=== PATIENT | male | born 1935 | race Caucasian/White ===

== ENCOUNTER 2016-12-15 08:40 | Outpatient (CLI) | payer MEDICARE, OTHER | END 2016-12-15 08:41 | disposition home or self-care (01) | DX: E11.51 Type 2 diabetes mellitus with diabetic peripheral angiopathy without gangrene (principal); I70.213 Atherosclerosis of native arteries of extremities with intermittent claudication, bilateral legs ==

== ENCOUNTER 2017-01-10 14:07 | Outpatient (CLI) | payer MEDICARE, OTHER | END 2017-01-10 14:08 | disposition home or self-care (01) | DX: I48.91 Unspecified atrial fibrillation (principal); I51.7 Cardiomegaly; I77.89 Other specified disorders of arteries and arterioles ==

== ENCOUNTER 2017-01-25 11:03 | Outpatient (CLI) | payer MEDICARE, OTHER | END 2017-01-25 11:04 | disposition home or self-care (01) | DX: G47.33 Obstructive sleep apnea (adult) (pediatric) (principal) | CPT/HCPCS: 99215; G0463 ==

== ENCOUNTER 2017-02-07 13:14 | Outpatient (CLI) | payer MEDICARE, OTHER | END 2017-02-07 13:15 | disposition home or self-care (01) | DX: I48.2 Chronic atrial fibrillation (principal); G47.33 Obstructive sleep apnea (adult) (pediatric); I10 Essential (primary) hypertension ==

== ENCOUNTER 2017-02-13 11:18 | Emergency (ER) | payer MEDICARE, OTHER ==
--- NOTE | 2017-02-13 11:45 | ED Physician Documentation ---
PD HPI DYSPNEA - Stated complaint Stated Complaint: SOA - Chief complaint Chief Complaint: Resp - History obtained from History obtained from: Patient - History of Present Illness Timing - onset: How many days ago (several) Timing - onset during: Light activity Timing - details: Gradual onset, Waxing and waning (he has noted feeling of dyspnea and some fatigue the past few days. Had been seen 4 days ago for cardioversion from atrial fib. Seemed okay for 2 days then started with some fatigue and dyspnea, similar to prior to cardioversion. Does not feel palpitations per se.) Inciting event(s): No: URI Worsened by: Exertion. No: Laying flat, Coughing Associated symptoms: Bilateral edema (chronic). No: Fever, Cough, Wheezing Similar symptoms before: Has not had sx before Recently seen: Clinic (cardioversion from atril fib 4 days ago) Review of Systems Constitutional: denies: Fever, Chills Nose: denies: Rhinorrhea / runny nose, Congestion Throat: denies: Sore throat Cardiac: reports: Pedal edema. denies: Chest pain / pressure, Palpitations, Calf pain Respiratory: reports: Dyspnea. denies: Cough, Wheezing GI: denies: Nausea, Vomiting, Diarrhea, Bloody / black stool : denies: Dysuria, Frequency Skin: denies: Rash, Lesions Neurologic: reports: Generalized weakness. denies: Focal weakness, Numbness, Near syncope PD PAST MEDICAL HISTORY - Past Medical History Cardiovascular: Hypertension Respiratory: Asthma Neuro: TIA Endocrine/Autoimmune: Type 2 diabetes GI: Ulcers : Benign prostate hypertrophy, Incontinence HEENT: None Psych: Depression, Anxiety Musculoskeletal: Osteoarthritis Derm: None - Past Surgical History Past Surgical History: Yes General: Appendectomy, Hiatal hernia repair Ortho: Hip replacement - Present Medications Home Medications: Ambulatory Orders Medication Instructions Recorded Confirmed Albuterol Sulfate [Proair Hfa] 1 puffs PRN 05/02/14 05/10/14 Aspirin/Calcium Carbonate/Mag 325 mg DAILY 05/02/14 05/10/14 [Aspirin Buffered 325 mg Tab] Azelastine HCl 137 mcg NS BID 05/02/14 05/10/14 Fexofenadine [Georgette] 60 mg QPM 05/02/14 05/10/14 Fluticasone [Flonase] 2 sprays BID 05/02/14 05/10/14 Glimepiride 2 mg PO BID 05/02/14 05/10/14 Insulin Lispro [Humalog] 0 PRN 05/02/14 05/10/14 Mirtazapine 30 mg PO QPM 05/02/14 05/10/14 Montelukast Sodium [Singulair] 10 mg PO QPM 05/02/14 05/10/14 Pantoprazole Sodium [Protonix] 40 mg DAILY 05/02/14 05/10/14 Valsartan/Hydrochlorothiazide 1 cap DAILY 05/02/14 05/10/14 [Valsartan-Hctz 320-25 mg Tab] clonazePAM [KlonoPIN] 0.5 mg QPM 05/02/14 05/10/14 metFORMIN [Glucophage] 1,000 mg PO BIDWM 05/02/14 05/10/14 Baclofen 10 mg PO TID 05/10/14 05/10/14 Hydrocodone/Acetaminophen 1 tab PO PRN 05/10/14 05/10/14 [Hydrocodone-APAP 5-325] Magnesium Oxide [Mag Ox] 400 mg PO DAILY #15 tablet 02/13/17 - Allergies Allergies/Adverse Reactions: Allergies Allergy/AdvReac Type Severity Reaction Status Date / Time No Known Drug Allergies Allergy Verified 05/02/14 08:48 - Social History Does the pt smoke?: No Smoking Status: Never smoker Does the pt drink ETOH?: Yes Does the pt have substance abuse?: No - Family History Family history: reports: Non contributory - Immunizations Immunizations are current?: Yes - POLST Patient has POLST: Yes PD ED PE NORMAL - Vitals Vital signs reviewed: Yes - General General: Alert and oriented X 3, No acute distress, Well developed/nourished - HEENT HEENT: Ears normal, Moist mucous membranes, Pharynx benign - Neck Neck: Supple, no meningeal sign, No adenopathy - Cardiac Cardiac: No murmur. No: RRR (irregular but controlled rate) - Respiratory Respiratory: Clear bilaterally - Abdomen Abdomen: Soft, Non tender - Back Back: No CVA TTP, No spinal TTP - Derm Derm: Normal color, Warm and dry - Extremities Extremities: No tenderness to palpate, Normal ROM s pain, No calf tenderness / cord, Other (1+ bilateral edema) - Neuro Neuro: Alert and oriented X 3, No motor deficit, No sensory deficit, Normal speech - Psych Psych: Normal mood, Normal affect Results - Vitals Vitals: Vital Signs - 24 hr 02/13/17 02/13/17 02/13/17 11:21 12:31 13:45 Temperature 36.3 C L 36.6 C Heart Rate 108 H 92 88 Respiratory 20 18 16 Rate Blood Pressure 127/82 H 114/69 110/70 O2 Saturation 97 94 93 02/13/17 14:04 Temperature Heart Rate 89 Respiratory 20 Rate Blood Pressure 110/70 O2 Saturation 93 Oxygen O2 Source Room air - EKG (time done) 11:33 Rate: Rate (enter#) (86) Rhythm: Atrial fibrillation Intervals: RBBB QRS: Normal Ischemia: Normal ST segments, Non specific changes. No: ST elevation c/w ischemia, ST depression - Labs Labs: Laboratory Tests 02/13/17 02/13/17 02/13/17 11:45 11:45 11:45 WBC 6.3 RBC 3.70 L Hgb 12.7 L Hct 36.7 L MCV 99.1 H MCH 34.4 H MCHC 34.7 RDW 14.2 Plt Count 117 L MPV 10.0 Neut # 3.6 Lymph # 1.8 [place] # 0.5 Eos # 0.4 Baso # 0.0 Absolute Nucleated RBC 0.01 Nucleated RBCs 0.1 Sodium 137 Potassium 3.9 Chloride 101 Carbon Dioxide 28 Anion Gap 8.0 BUN 16 Creatinine 0.8 Estimated GFR (MDRD) 93 Glucose 226 H Calcium 10.1 Magnesium 1.5 L Total Bilirubin 0.9 AST 52 H ALT 44 Alkaline Phosphatase 102 B-Natriuretic Peptide 375 H Total Protein 6.6 L Albumin 3.7 Globulin 2.9 Albumin/Globulin Ratio 1.3 Lipase 28 - Rads (name of study) chest Radiology: Prelim report reviewed, EMP read contemporaneously (no signs of CHF nor infiltrates) PD MEDICAL DECISION MAKING - ED course Complexity details: considered differential (has dyspnea but does not appear to be in failure and no infiltrates on CXR. talked with Dr. Edouard and she will do stress testing. He does have relatively low BP for age/etc. and consdier some dyspnea from low pressure. However Dr. Edouard wanted to see how it does rather than decrease BP meds. ), d/w patient, d/w continuous improvement consultant (Dr. Edouard, who said not to try cardioversion as unlikely to sustain, since reverted in 2-3 days to atrial fib again. ) Departure - Departure Disposition: 01 Home, Self Care Clinical Impression: Dyspnea, Atrial fibrillation Condition: Stable Record reviewed to determine appropriate education?: Yes Instructions: ED Dyspnea Shortness of Breath, ED Afib Follow-Up: Sachi Winchester MD [Primary Care Provider] - Olga Edouard MD [Provider Admit Priv/Credential] - Prescriptions: Magnesium Oxide [Mag Ox] 400 mg PO DAILY #15 tablet Comments: Continue current medications, with taking whole tablet of the Furosemide diuretic. Add Magnesium supplement daily for 1-2 weeks. Check your BP once or twice daily; if it is running too low (under 115-120) then contact Dr. Edouard's office or PMD to talk about lowering your BP med ( Valsartan). Dr. Edouard's office will contact you in the next day or so to set up follow up appt to perhaps have stress testing done and to recheck how you are doing. She said there was not a value in re-doing the cardioversion if the Atrial Fib returned so soon. Discharge Date/Time: 02/13/17 14:04
[2017-02-13 12:22] LABS: BASOPHILS % (AUTO) 0.5 %; EOSINOPHILS # (AUTO) 0.4 10^3/uL (0.0-0.7); EOSINOPHILS % (AUTO) 6.1 %; HCT - HEMATOCRIT 36.7 % (42.0-52.0); HGB - HEMOGLOBIN 12.7 g/dL (14.0-18.0); LYMPHOCYTES # (AUTO) 1.8 10^3/uL (1.5-3.5); LYMPHOCYTES % (AUTO) 28.8 %; MEAN CORPUSCULAR HEMOGLOBIN 34.4 pg (27.0-31.0); MEAN CORPUSCULAR HGB CONC 34.7 g/dL (32.0-36.0); MEAN CORPUSCULAR VOLUME 99.1 fL (80.0-94.0); MONOCYTES # (AUTO) 0.5 10^3/uL (0.0-1.0); MONOCYTES % (AUTO) 7.7 %; NEUTROPHILS # (AUTO) 3.6 10^3/uL (1.5-6.6); NEUTROPHILS % (AUTO) 56.9 %; NUCLEATED RED BLOOD CELLS AUTO 0.1 /100WBC; RED CELL DISTRIBUTION WIDTH 14.2 % (12.0-15.0); UNCORRECTED WHITE BLOOD COUNT 6.3 x10^3/uL; WHITE BLOOD COUNT 6.3 x10^3/uL (4.8-10.8)
[2017-02-13 12:32] LABS: ALBUMIN/GLOBULIN RATIO 1.3 (1.0-2.2); BILIRUBIN,TOTAL 0.9 mg/dL (0.2-1.0); CALCIUM 10.1 mg/dL (8.5-10.3); CREATININE 0.8 mg/dL (0.6-1.2); MAGNESIUM 1.5 mg/dL (1.7-2.8); POTASSIUM 3.9 mmol/L (3.5-5.0); TOTAL PROTEIN 6.6 g/dL (6.7-8.2)
--- NOTE | 2017-02-13 12:37 | XRAY Preliminary Report ---
Exam: XR Chest 1 View IMPRESSION: No focal consolidation. [facility] SITE ID: [id number]
--- NOTE | 2017-02-13 12:40 | XRAY Report ---
EXAM: CHEST RADIOGRAPHY EXAM DATE: 02/13/2017 12:27 PM. CLINICAL HISTORY: Dyspnea. COMPARISON: Chest radiograph dated 02/13/2017 at 12:31 PM. TECHNIQUE: 1 view. FINDINGS: Lungs/Pleura: No focal opacities evident. No pleural effusion. No pneumothorax. Mediastinum: Within exam limitations, cardiomediastinal contour is normal. Other: None. IMPRESSION: No focal consolidation. [facility] Referring Provider Line: [phone] SITE ID: [id number]
[2017-02-13] MEDS ORDERED: MAGNESIUM SULFATE 2 GRAM 50 ML IV ONE ×2 (12:54→12:57)
[2017-02-13 14:03] VITALS: BP 110/70
== END 2017-02-13 14:04 | disposition home or self-care (01) ==
LOC: ED 11:18
DX: I48.91 Unspecified atrial fibrillation (principal); I45.10 Unspecified right bundle-branch block; R94.31 Abnormal electrocardiogram [ECG] [EKG]; R06.02 Shortness of breath; I10 Essential (primary) hypertension; J45.909 Unspecified asthma, uncomplicated; E11.9 Type 2 diabetes mellitus without complications; Z79.4 Long term (current) use of insulin; Z79.84 Long term (current) use of oral hypoglycemic drugs; N40.0 Benign prostatic hyperplasia without lower urinary tract symptoms; Z86.73 Personal history of transient ischemic attack (TIA), and cerebral infarction without residual deficits; Z87.11 Personal history of peptic ulcer disease; M19.90 Unspecified osteoarthritis, unspecified site; Z79.82 Long term (current) use of aspirin
CPT/HCPCS: 36415; 71010; 80053; 83690; 83735; 83880; 85025; 93005; 93010; 96374; 99283; 99284

== ENCOUNTER 2017-02-27 11:02 | Outpatient (CLI) | payer MEDICARE, OTHER | END 2017-02-27 11:03 | disposition home or self-care (01) | LOC: SC 11:02 | PROVIDERS: ATTEND Nurse Practitioner Family | DX: G47.33 Obstructive sleep apnea (adult) (pediatric) (principal) | CPT/HCPCS: 99214; G0463; 99212 ==

== ENCOUNTER 2017-03-13 15:54 | Outpatient (CLI) | payer MEDICARE, OTHER | END 2017-03-13 15:55 | disposition home or self-care (01) | LOC: RT 15:54 | PROVIDERS: ATTEND Internal Medicine Cardiovascular Disease | DX: I48.91 Unspecified atrial fibrillation (principal) | CPT/HCPCS: 93005 ==

== ENCOUNTER 2017-03-30 16:08 | Outpatient (CLI) | payer MEDICARE, OTHER | END 2017-03-30 16:09 | disposition home or self-care (01) | LOC: RT 16:08 | PROVIDERS: ATTEND Internal Medicine Cardiovascular Disease | DX: I48.2 Chronic atrial fibrillation (principal) | CPT/HCPCS: 93005 ==

== ENCOUNTER 2017-04-05 13:46 | Outpatient (CLI) | payer MEDICARE, OTHER | END 2017-04-05 13:47 | disposition home or self-care (01) | LOC: SC 13:46 | PROVIDERS: ATTEND Nurse Practitioner Family | DX: G47.33 Obstructive sleep apnea (adult) (pediatric) (principal) | CPT/HCPCS: 99214; G0463; 99212 ==

== ENCOUNTER 2017-05-09 15:52 | Outpatient (CLI) | payer MEDICARE, OTHER | END 2017-05-09 15:53 | disposition home or self-care (01) | LOC: RT 15:52 | PROVIDERS: ATTEND Internal Medicine Cardiovascular Disease | DX: I48.91 Unspecified atrial fibrillation (principal) | CPT/HCPCS: 93005 ==

== ENCOUNTER 2017-05-29 16:11 | Outpatient (CLI) | payer MEDICARE, OTHER | END 2017-05-29 16:12 | disposition home or self-care (01) | LOC: SC 16:11 | PROVIDERS: ATTEND Nurse Practitioner Family | DX: G47.33 Obstructive sleep apnea (adult) (pediatric) (principal); R09.02 Hypoxemia | CPT/HCPCS: 99215; G0463; 99212 ==

== ENCOUNTER 2017-09-18 09:16 | Outpatient (CLI) | payer MEDICARE, OTHER ==
[2017-09-18 10:09] LABS: BASOPHILS % (AUTO) 0.9 %; EOSINOPHILS # (AUTO) 0.3 10^3/uL (0.0-0.7); EOSINOPHILS % (AUTO) 6.4 %; HCT - HEMATOCRIT 34.3 % (42.0-52.0); HGB - HEMOGLOBIN 11.8 g/dL (14.0-18.0); LYMPHOCYTES # (AUTO) 1.6 10^3/uL (1.5-3.5); LYMPHOCYTES % (AUTO) 29.9 %; MEAN CORPUSCULAR HGB CONC 34.5 g/dL (32.0-36.0); MEAN CORPUSCULAR VOLUME 95.8 fL (80.0-94.0); MEAN PLATELET VOLUME 9.7 fL (7.4-11.4); MONOCYTES # (AUTO) 0.4 10^3/uL (0.0-1.0); MONOCYTES % (AUTO) 7.6 %; NEUTROPHILS % (AUTO) 55.2 %; NUCLEATED RED BLOOD CELLS AUTO 0.1 /100WBC; RED BLOOD COUNT 3.58 10^6/uL (4.70-6.10); RED CELL DISTRIBUTION WIDTH 14.2 % (12.0-15.0); UNCORRECTED WHITE BLOOD COUNT 5.4 x10^3/uL; WHITE BLOOD COUNT 5.4 x10^3/uL (4.8-10.8)
[2017-09-18 10:11] LABS: BILIRUBIN,URINE NEGATIVE (NEGATIVE); PH,URINE 6.5 PH (5.0-7.5); UA CHARGE (STRIP ONLY) YES; UR CULTURE IF IND NOT INDICATED
[2017-09-18 10:25] LABS: HEMOGLOBIN A1C 0.54 g/dL
[2017-09-18 10:28] LABS: ALBUMIN/GLOBULIN RATIO 1.2 (1.0-2.2); BILIRUBIN,TOTAL 1.1 mg/dL (0.2-1.0); BUN - BLOOD UREA NITROGEN 33 mg/dL (6-20); CALCIUM 9.7 mg/dL (8.5-10.3); CARBON DIOXIDE - CO2 29 mmol/L (21-32); CHLORIDE 98 mmol/L (101-111); CHOL/HDL RATIO 3.9 (<5.0); CHOLESTEROL 166 mg/dL; CREATININE 1.2 mg/dL (0.6-1.2); GFR - MDRD 58 (>89); GLUCOSE 149 mg/dL (70-100); HDL CHOLESTEROL 43 mg/dL; POTASSIUM 3.7 mmol/L (3.5-5.0); SODIUM 139 mmol/L (135-145); TOTAL PROTEIN 6.5 g/dL (6.7-8.2); TRIGLYCERIDES 192 mg/dL; VLDL CHOLESTEROL 38 mg/dL
[2017-09-18 11:05] LABS: THYROID STIMULATING HORMONE 1.99 uIU/mL (0.34-5.60)
== END 2017-09-18 09:17 | disposition home or self-care (01) ==
LOC: LAB 09:16
PROVIDERS: ATTEND Internal Medicine
DX: I10 Essential (primary) hypertension (principal); Z79.899 Other long term (current) drug therapy; I50.9 Heart failure, unspecified; C61 Malignant neoplasm of prostate; R40.0 Somnolence; G47.33 Obstructive sleep apnea (adult) (pediatric); I48.92 Unspecified atrial flutter; Z86.010 Personal history of colon polyps; R80.9 Proteinuria, unspecified; G25.81 Restless legs syndrome; M19.90 Unspecified osteoarthritis, unspecified site; K74.60 Unspecified cirrhosis of liver; E11.9 Type 2 diabetes mellitus without complications; D64.9 Anemia, unspecified; R05 Cough; I50.32 Chronic diastolic (congestive) heart failure
CPT/HCPCS: 36415; 80053; 80061; 81001; 81003; 82043; 82570; 82607; 83036; 83880; 84153; 84443; 85025; 87086

== ENCOUNTER 2018-03-22 13:27 | Outpatient (CLI) | payer MEDICARE, OTHER | END 2018-03-22 23:59 | LOC: CAM 13:27 | PROVIDERS: ATTEND Internal Medicine | DX: M54.5 Low back pain (principal); G83.10 Monoplegia of lower limb affecting unspecified side; M62.838 Other muscle spasm | CPT/HCPCS: 97810; 97811 ==

== ENCOUNTER 2018-05-10 12:07 | Outpatient (CLI) | payer MEDICARE, OTHER ==
[2018-05-10 13:00] LABS: ALBUMIN 3.7 g/dL (3.2-5.5); ALBUMIN/GLOBULIN RATIO 1.2 (1.0-2.2); BILIRUBIN,TOTAL 1.1 mg/dL (0.2-1.0); CALCIUM 9.6 mg/dL (8.5-10.3); TOTAL PROTEIN 6.7 g/dL (6.7-8.2)
== END 2018-05-10 12:08 | disposition home or self-care (01) ==
LOC: LAB 12:07
PROVIDERS: ATTEND Internal Medicine Cardiovascular Disease
DX: I10 Essential (primary) hypertension (principal)
CPT/HCPCS: 36415; 80053; 83880

== ENCOUNTER 2018-05-17 07:10 | Day surgery (SDC) | payer MEDICARE, OTHER ==
[2018-05-17] MEDS ORDERED: LACTATED RINGERS 1,000 ML IV ONE (07:50)
[2018-05-17] MEDS ORDERED: PROPOFOL 200 MG/20 ML VIAL IVP ONE (10:35)
[2018-05-17] MEDS ORDERED: LIDOCAINE-MPF 2% 5 ML VIAL IM ONE (10:35)
[2018-05-17 11:52] VITALS: BP 112/66
== END 2018-05-17 07:11 | disposition home or self-care (01) ==
LOC: SDS 07:10
PROVIDERS: ATTEND Internal Medicine Gastroenterology
PROC: 0DBL8ZZ Excision of Transverse Colon, Via Natural or Artificial Opening Endoscopic (ICD-10-PCS; 2018-05-17)
PROC: 0DBM8ZZ Excision of Descending Colon, Via Natural or Artificial Opening Endoscopic (ICD-10-PCS; 2018-05-17)
PROC: 0DBH8ZZ Excision of Cecum, Via Natural or Artificial Opening Endoscopic (ICD-10-PCS; 2018-05-17)
PROC: 0DBK8ZZ Excision of Ascending Colon, Via Natural or Artificial Opening Endoscopic (ICD-10-PCS; 2018-05-17)
PROC: 0DBL8ZZ Excision of Transverse Colon, Via Natural or Artificial Opening Endoscopic (ICD-10-PCS; 2018-05-17)
PROC: 3E0H8GC Introduction of Other Therapeutic Substance into Lower GI, Via Natural or Artificial Opening Endoscopic (ICD-10-PCS; 2018-05-17)
PROC: 0DBK8ZZ Excision of Ascending Colon, Via Natural or Artificial Opening Endoscopic (ICD-10-PCS; principal; 2018-05-17 08:30)
DX: K62.5 Hemorrhage of anus and rectum (principal); D12.2 Benign neoplasm of ascending colon; D12.0 Benign neoplasm of cecum; D12.4 Benign neoplasm of descending colon; D12.3 Benign neoplasm of transverse colon; K57.30 Diverticulosis of large intestine without perforation or abscess without bleeding; K64.8 Other hemorrhoids; K64.4 Residual hemorrhoidal skin tags; G47.30 Sleep apnea, unspecified; E11.9 Type 2 diabetes mellitus without complications; C61 Malignant neoplasm of prostate; I50.9 Heart failure, unspecified; I11.0 Hypertensive heart disease with heart failure
CPT/HCPCS: 45380; 45381; 45385; J7120

== ENCOUNTER 2018-06-18 17:14 | Emergency (ER) | payer MEDICARE, OTHER ==
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
--- NOTE | 2018-06-18 19:02 | XRAY Report ---
Reason: fall, low back pain Procedure Date: 06/18/2018 Accession Number: [id number] / [id number] Procedure: XR - Lumbar Spine 2 View CPT Code: FULL RESULT: EXAM: LUMBOSACRAL SPINE RADIOGRAPHY EXAM DATE: 06/18/2018 06:14 PM. CLINICAL HISTORY: Pain after fall. COMPARISONS: 08/20/2016. TECHNIQUE: 3 views. FINDINGS: Alignment: Gentle convex to the left curvature of the mid lumbar spine. No spondylolisthesis. Bones: Five [id number] lumbar vertebral bodies are present. No fractures or bone lesion. Osteopenic patient. Disks: Diffuse degenerative disk disease most severely affecting L3-L4, L4-L5 and L5-S1. Lower thoracic spine DISH noted. Facets: Facet arthropathy most superior in the lower lumbar spine. Sacroiliac Joints: Unremarkable. Soft Tissues: Normal. The visualized bowel gas pattern is normal. Atheromatous calcified plaques in the abdominal aorta noted. IMPRESSION: 1. Osteopenic patient. No acute fracture. 2. Multilevel degenerative disk and facet arthropathy. 3. Lower thoracic spine DISH. [facility]
[2018-06-18 19:04] LABS: BASOPHILS # (AUTO) 0.1 10^3/uL (0.0-0.1); BASOPHILS % (AUTO) 1.2 %; EOSINOPHILS # (AUTO) 0.4 10^3/uL (0.0-0.7); HGB - HEMOGLOBIN 10.2 g/dL (14.0-18.0); LYMPHOCYTES # (AUTO) 1.3 10^3/uL (1.5-3.5); LYMPHOCYTES % (AUTO) 20.3 %; MEAN CORPUSCULAR HEMOGLOBIN 33.6 pg (27.0-31.0); MEAN CORPUSCULAR HGB CONC 34.2 g/dL (32.0-36.0); MEAN CORPUSCULAR VOLUME 98.1 fL (80.0-94.0); MEAN PLATELET VOLUME 9.1 fL (7.4-11.4); MONOCYTES # (AUTO) 0.6 10^3/uL (0.0-1.0); MONOCYTES % (AUTO) 10.1 %; NEUTROPHILS # (AUTO) 3.9 10^3/uL (1.5-6.6); NEUTROPHILS % (AUTO) 62.4 %; PLT - PLATELET COUNT 118 10^3/uL (130-450); RED BLOOD COUNT 3.04 10^6/uL (4.70-6.10); WHITE BLOOD COUNT 6.2 x10^3/uL (4.8-10.8)
--- NOTE | 2018-06-18 19:07 | XRAY Report ---
Reason: fall, chest discomfort Procedure Date: 06/18/2018 Accession Number: [id number] / [id number] Procedure: XR - Chest 1 View X-Ray CPT Code: 36119 FULL RESULT: EXAM: CHEST RADIOGRAPHY EXAM DATE: 06/18/2018 06:14 PM. CLINICAL HISTORY: Left-sided chest pain after a fall. COMPARISON: 08/17/2017. TECHNIQUE: 1 view. FINDINGS: Lungs/Pleura: Probable pleural thickening at the lateral left lung base. No large effusions or pneumothorax. Mediastinum: Enlarged heart. Atheromatous plaques noted in the thoracic aorta. Other: Possible lateral left sixth rib fracture. IMPRESSION: 1. Possible lateral left sixth rib fracture. 2. No pneumothorax or effusions. 3. Stable cardiac enlargement. [facility]
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
[2018-06-18] MEDS ORDERED: traMADol 50 MG TABLET PO STA (19:13)
[2018-06-18 19:17] LABS: ALBUMIN 3.5 g/dL (3.2-5.5); ALBUMIN/GLOBULIN RATIO 1.2 (1.0-2.2); BILIRUBIN,TOTAL 1.4 mg/dL (0.2-1.0); CALCIUM 9.6 mg/dL (8.5-10.3); CREATININE 1.2 mg/dL (0.6-1.2); TOTAL PROTEIN 6.4 g/dL (6.7-8.2)
[2018-06-18 19:36] VITALS: BP 128/90
== END 2018-06-18 19:40 | disposition home or self-care (01) ==
LOC: ED 17:14
DX: M54.9 Dorsalgia, unspecified (principal); S22.32XA Fracture of one rib, left side, initial encounter for closed fracture; V00.831A Fall from motorized mobility scooter, initial encounter; Y93.89 Activity, other specified; Y92.098 Other place in other non-institutional residence as the place of occurrence of the external cause; I11.0 Hypertensive heart disease with heart failure; E11.9 Type 2 diabetes mellitus without complications; Z79.4 Long term (current) use of insulin; Z79.01 Long term (current) use of anticoagulants
CPT/HCPCS: 36415; 70450; 71045; 72100; 72125; 73502; 80053; 83690; 85025; 99283; 99284; A9270

== ENCOUNTER 2018-07-28 04:21 | Outpatient (CLI) | payer MEDICARE, OTHER | END 2018-07-28 04:22 | disposition critical access hospital (66) | LOC: EMS 04:21 | PROVIDERS: ATTEND Surgery | DX: R07.81 Pleurodynia (principal); W19.XXXA Unspecified fall, initial encounter; Y92.008 Other place in unspecified non-institutional (private) residence as the place of occurrence of the external cause | CPT/HCPCS: A0425; A0429 ==

== ENCOUNTER 2018-07-28 04:30 | Emergency (ER) | payer MEDICARE, OTHER ==
--- NOTE | 2018-07-28 04:51 | ED Physician Documentation ---
PD HPI Fall - Stated complaint Stated Complaint: GLF - LOC - Chief complaint Chief Complaint: Trauma Ch/Bk - History obtained from History obtained from: Patient - History of Present Illness Mechanism of injury: Slipped, Lost balance Fall distance: Sitting position Where injury occurred: Home Timing - onset: Today Injury(ies) location: Head, Neck, Back Associated symptoms: No: LOC Contributing factors: Anticoagulated Similar symptoms before: Has not had sx before Recently seen: Not recently seen - Additional information Additional information: Patient is an 82 year old male on xeralto for a fib who is brought in by bls after falling. Patient states that he was checking the time on the phone and he dropped it. Patient states that he leaned forward and fell. patient states that he got caught between a piece of furniture and the wall. Patient could not get up for awhile. patient was found by his who called ems. Patient denies loc but states that he had an episode of loc. patient states that he has mild neck pain, back pain and hip pain. Review of Systems Constitutional: denies: Fever, Chills Eyes: denies: Decreased vision Ears: denies: Drainage/discharge Nose: denies: Epistaxis Respiratory: denies: Cough GI: denies: Nausea, Vomiting Musculoskeletal: reports: Neck pain, Back pain, Extremity pain Neurologic: reports: LOC. denies: Confused, Altered mental status, Headache Immunocompromised: denies: Immunocompromised PD PAST MEDICAL HISTORY - Past Medical History Cardiovascular: Congestive heart failure, Hypertension Respiratory: Asthma, Shortness of breath, Sleep apnea, CPAP use Endocrine/Autoimmune: Type 2 diabetes GI: Ulcers : Benign prostate hypertrophy, Incontinence HEENT: None Psych: Depression, Anxiety Musculoskeletal: Osteoarthritis, Rheumatoid arthritis, Chronic back pain Derm: None - Past Surgical History Past Surgical History: Yes General: Appendectomy, Hiatal hernia repair Ortho: Hip replacement - Present Medications Home Medications: Ambulatory Orders Medication Instructions Recorded Confirmed RX: Azelastine HCl 137 mcg NS BID 05/02/14 05/17/18 RX: Fexofenadine [Georgette] 180 mg QPM 05/02/14 05/17/18 RX: Fluticasone [Flonase] 2 sprays DAILY 05/02/14 05/17/18 RX: Glimepiride 1 mg PO DAILY 05/02/14 05/17/18 RX: Montelukast Sodium [Singulair] 10 mg PO QPM 05/02/14 05/17/18 RX: metFORMIN [Glucophage] 1,000 mg PO BID 05/02/14 05/17/18 RX: Insulin Glargine [Lantus 28 unit SQ 2100 08/17/17 05/17/18 Solostar] RX: Metoprolol Tartrate 50 mg PO BID 08/17/17 05/17/18 RX: Nystatin 1 each PO BID 08/17/17 05/17/18 RX: Rivaroxaban [Xarelto] 20 mg PO DAILY 08/17/17 05/17/18 RX: Ropinirole HCl [Requip] 0.5 tab PO QPM 08/17/17 05/17/18 RX: Valsartan 320 mg PO DAILY 08/17/17 05/17/18 RX: Acetaminophen 1,000 mg PO DAILY PRN 08/18/17 05/17/18 Albuterol Sulfate [Proair 2 inh IH DAILY 05/09/18 05/09/18 Respiclick] Citalopram Hydrobromide 10 mg PO DAILY 05/09/18 05/09/18 [Citalopram HBr] RX: Torsemide 40 mg PO DAILY 05/09/18 05/09/18 RX: Tramadol HCl 50 - 100 mg PO Q6HR PRN #20 tablet 06/18/18 Nitrofurantoin Monohyd/M-Cryst 100 mg PO BID 7 Days capsule 07/28/18 [Macrobid 100 mg Capsule] - Allergies Allergies/Adverse Reactions: Allergies Allergy/AdvReac Type Severity Reaction Status Date / Time oxycodone Allergy Unknown Verified 07/28/18 04:38 zolpidem [From Ambien] Allergy Unknown Verified 07/28/18 04:38 - Social History Does the pt smoke?: No Smoking Status: Never smoker Does the pt drink ETOH?: Yes Does the pt have substance abuse?: No - Immunizations Immunizations are current?: Yes - POLST Patient has POLST: Yes PD ED PE NORMAL - Vitals Vital signs reviewed: Yes - General General: Alert and oriented X 3, No acute distress - HEENT HEENT: Atraumatic - Cardiac Cardiac: RRR - Respiratory Respiratory: No respiratory distress, Clear bilaterally - Abdomen Abdomen: Other (obese) - Derm Derm: Normal color PD ED PE EXPANDED - Neck Neck: Bony TTP - Back Back: Vertebral tenderness (lower thoracic and upper lumbar midline tenderness) - Extremities Extremities: Right hip (tenderness to plapation ) Results - Vitals Vitals: Vital Signs - 24 hr 07/28/18 04:31 Temperature 36.5 C Heart Rate 79 Respiratory 18 Rate Blood Pressure 143/78 H O2 Saturation 97 Oxygen O2 Source Room air - EKG (time done) 0440 Rate: Rate (enter#) - Rads (name of study) ct head Radiology: Final report received (no acute findings) ct c spine Radiology: Final report received (no acute findings) ct thoracic spine Radiology: Final report received, Discussed with rads (stable osteophyte fracture t8-t9) ct lumbar spine Radiology: Final report received (no acute fracture or dislocation) ct pelvis Radiology: Final report received (no acute fracture or dislocation) PD MEDICAL DECISION MAKING - ED course Complexity details: reviewed old records, reviewed results, re-evaluated patient, considered differential, d/w patient, d/w family, d/w senior product consultant ED course: patient was seen and examined at bedside. ATLS protocol was followed. patient was placed on a monitor and ABCs were intact. patient was sent for imaging. When patient returned the radiologist called and stated that there was a stable thoracic spine fracture. patient was placed in a tlso for support and comfort. Urine was collected and patient was found to have a urinary tract infection. patient was treated with macrobid. A discussion was had with the patient and his family about the importance of follow up and possible home health nursing. patient and family understood and were stable for discharge with outpatient follow up. - Sepsis Event Vital Signs: Vital Signs - 24 hr 07/28/18 04:31 Temperature 36.5 C Heart Rate 79 Respiratory 18 Rate Blood Pressure 143/78 H O2 Saturation 97 Oxygen O2 Source Room air Departure - Departure Disposition: 01 Home, Self Care Clinical Impression: Urinary tract infection, Thoracic spine fracture Condition: Good Instructions: ED UTI Cystitis Male Follow-Up: Sachi Winchester MD [Provider Admit Priv/Credential] - Within 3 Days Prescriptions: Nitrofurantoin Monohyd/M-Cryst [Macrobid 100 mg Capsule] 100 mg PO BID 7 Days capsule Comments: Your diagnostics today revealed two things. You have a very small spinal fracture as well as a urinary tract infection. For the spine fracture you can wear the brace for comfort and take tylenol as needed for pain. You should continue to work with physical and occupational therapy. For the urinary tract infection you are being started on macrobid, an antibiotic. You will be on it twice a day for the next week. You should follow up with your doctor on monday and discuss the possibility of setting up home care. You may return to the emergency department at any time for new, worsening or uncontrollable symptoms. Discharge Date/Time: 07/28/18 07:05
[2018-07-28 05:34] LABS: BILIRUBIN,URINE NEGATIVE (NEGATIVE); GLUCOSE, URINE (UA) NEGATIVE (NEGATIVE); KETONES,URINE (UA) NEGATIVE (NEGATIVE); LEUKOCYTE ESTERASE, URINE MODERATE (NEGATIVE); NITRITE,URINE POSITIVE (NEGATIVE); OCCULT BLOOD,URINE TRACE-LYSE (NEGATIVE); PROTEIN,URINE NEGATIVE (NEGATIVE); UROBILINOGEN,URINE 0.2 (NORMAL) E.U./dL (NORMAL)
[2018-07-28 05:37] LABS: CLARITY,URINE CLEAR (CLEAR)
--- NOTE | 2018-07-28 05:53 | CT Report ---
Reason: fall, loc head, neck, back and pelvis pain Procedure Date: 07/28/2018 Accession Number: [id number] / [id number] Procedure: CT - Head W/O CPT Code: FULL RESULT: EXAM: CT HEAD EXAM DATE: 07/28/2018 05:05 AM. CLINICAL HISTORY: Fall, loc head, neck, back and pelvis pain. COMPARISON: CT head 06/18/2018. TECHNIQUE: Multiaxial CT images were obtained from the foramen magnum to the vertex. Reformats: Sagittal and coronal. IV contrast: None. In accordance with CT protocol optimization, one or more of the following dose reduction techniques were utilized for this exam: automated exposure control, adjustment of mA and/or KV based on patient size, or use of iterative reconstructive technique. FINDINGS: Parenchyma: No intraparenchymal hemorrhage. No evidence of mass, midline shift, or CT findings of infarction. Alvarez-white differentiation is distinct. There is mild to moderate chronic microvascular change in the deep white matter bilaterally. Extraaxial Spaces: There is age-related generalized cerebral volume loss. No subdural or epidural collections identified. Ventricles: No hydrocephalus. Sinuses and Orbits: Imaged paranasal sinuses, orbits, and mastoids show no significant abnormality. Bones: No evidence of fracture or calvarial defect. Other: None. IMPRESSION: 1. No acute intracranial abnormality. No change compared to 06/18/2018. RADIA
[2018-07-28 05:54] LABS: BACTERIA,URINE Few /HPF (None Seen); RBC,URINE 0-5 /HPF (0-5); SQUAMOUS EPITHELIAL CELL,UR NONE SEEN (<= Few)
--- NOTE | 2018-07-28 05:54 | CT Report ---
Reason: fall, loc head, neck, back and pelvis pain Procedure Date: 07/28/2018 Accession Number: [id number] / [id number] Procedure: CT - Pelvis W/O CPT Code: FULL RESULT: EXAM: CT BONY PELVIS WITHOUT CONTRAST EXAM DATE: 07/28/2018 05:34 AM. CLINICAL HISTORY: Fall, loss of consciousness head, neck, back and pelvis pain. Found down, unable to rise. COMPARISON: None. TECHNIQUE: Thin-section axial images were acquired of the pelvis without contrast. Post-processing: Coronal and sagittal reformats. Other: None. In accordance with CT protocol optimization, one or more of the following dose reduction techniques were utilized for this exam: automated exposure control, adjustment of mA and/or KV based on patient size, or use of iterative reconstructive technique. FINDINGS: Bones: Bones are severely osteopenic greatly reducing sensitivity and spasticity. Furthermore there is streak artifact resulting from a left hip prosthesis and left femoral hardware which further reduces sensitivity and specificity. No definite acute displaced fracture is demonstrated at this time. No definite suspicious bony lesion is demonstrated. Sacroiliac Joints: There is mild to moderate SI joint degenerative change, left greater than right. No diastases demonstrated. Symphysis Pubis: Moderate degenerative change. Right Hip: Mild to moderate degenerative change. Left Hip: Status post hip prosthesis. No definite evidence of loosening. Musculature: Normal. No fatty atrophy. Pelvic Cavity: Moderate distended urinary bladder without suspicious filling defect or stone. Other: There is nonspecific edema within the bowel mesentery, along the inferior extent of the imaged portion (image [id number]). No abnormally dilated bowel loops noted to suggest obstruction. Moderate sigmoid diverticulosis. Descending colon diverticulosis partially visualized. No definite evidence of acute diverticulitis. Discontinued penile prosthesis is noted. The inflated balloon is projecting within the right external inguinal opening region (image 243 series 3). Tubing extends into the inguinal canal, terminating near the surgical clips at the right inguinal canal (which 194 series 3). Bilateral inguinal hernia repair is noted. IMPRESSION: No definite acute bony abnormality. Osteopenia reduces sensitivity and specificity, which is further degraded by streak artifact from the left hip prosthesis. If the patient is unable to bear weight, further assessment could be considered with MRI. [facility]
--- NOTE | 2018-07-28 06:01 | CT Report ---
Reason: fall, loc head, neck, back and pelvis pain Procedure Date: 07/28/2018 Accession Number: [id number] / [id number] Procedure: CT - Cervical Spine W/O CPT Code: FULL RESULT: EXAM: CT CERVICAL SPINE WITHOUT CONTRAST DATE: 07/28/2018 05:07 AM. HISTORY: Fall, loc head, neck, back and pelvis pain. COMPARISONS: CERVICAL SPINE W/O 06/18/2018 6:16 PM. TECHNIQUE: Thin-section axial images were acquired of the cervical spine without contrast. Post-processing: Coronal and sagittal reformats. Other: None. In accordance with CT protocol optimization, one or more of the following dose reduction techniques were utilized for this exam: automated exposure control, adjustment of mA and/or KV based on patient size, or use of iterative reconstructive technique. FINDINGS: Alignment: No scoliosis or spondylolisthesis. Bones: No fracture or bone lesion. Interspace Levels/Facets: Moderate to severe multilevel cervical spondylosis and degenerative disk disease is unchanged compared to 06/18/2018. Posterior endplate spurring and disk bulging result in mild central canal stenosis at C5-C6 and C6-C7. Multilevel bilateral foraminal stenosis is again noted. Musculature: Unremarkable. Other: The paravertebral and prevertebral soft tissues are unremarkable. The lung apices are clear. IMPRESSION: 1. No acute abnormality. No cervical spine fracture or subluxation. 2. Multilevel cervical spondylosis and degenerative disk disease is unchanged compared to 06/18/2018. [facility]
[2018-07-28] MEDS ORDERED: ACETAMINOPHEN 500 MG TABLET PO STA (06:10)
[2018-07-28] MEDS ORDERED: NITROFURANTOIN MACRO 100 MG CAPSULE PO STA (06:10)
--- NOTE | 2018-07-28 06:27 | CT Report ---
Reason: fall, loc head, neck, back and pelvis pain Procedure Date: 07/28/2018 Accession Number: [id number] / [id number] Procedure: CT - Thoracic Spine W/O CPT Code: FULL RESULT: EXAM: CT THORACIC SPINE WITHOUT CONTRAST EXAM DATE: 07/28/2018 05:32 AM. CLINICAL HISTORY: Fall, loc head, neck, back and pelvis pain. COMPARISONS: None. TECHNIQUE: Thin-section axial images were acquired of the thoracic spine from C7 to L1 without contrast. Post-processing: Coronal and sagittal reformats. Other: None. In accordance with CT protocol optimization, one or more of the following dose reduction techniques were utilized for this exam: automated exposure control, adjustment of mA and/or KV based on patient size, or use of iterative reconstructive technique. FINDINGS: Alignment: Mild right convexity thoracic curvature may be positional or related to mild scoliosis. There is no subluxation. Bones: Visible osseous structures are osteopenic suggesting underlying osteoporosis. There is a subtle fracture line in the superior aspect of the T9 vertebral body adjacent to the superior endplate. This appears to extend through an anterior bridging osteophyte at the T8-T9 level. There is only minimal height loss involving the anterior portion of the T9 vertebral body. There is no retropulsion. There is mild paravertebral soft tissue thickening at this level consistent with this being an acute fracture. The T8-T9 disk space does not appear widened. No fracture is identified in the posterior elements. The endplate fracture and adjacent paravertebral soft tissue thickening is best appreciated on axial image 97, series 3. Mild anterior wedging of the T3 vertebral body appears chronic. No additional fractures are identified. Disk Levels/Facets: There is moderate multilevel thoracic spondylosis and degenerative disk disease. There is no significant central canal stenosis at any thoracic level. There is no evidence of high-grade foraminal stenosis. Musculature: Normal. No fatty atrophy. Other: There is mild atelectasis in the dependent portion of the visualized lungs. IMPRESSION: 1. Subtle acute compression fracture involving the superior endplate of the T9 vertebral body. The fracture line appears to extend through an anterior bridging osteophyte at the T8-T9 level. Mild paravertebral soft tissue thickening at this level is consistent with this being an acute fracture. The disk space does not appear widened and no fracture is identified in the posterior elements. There is no retropulsion. 2. No other acute thoracic spine fractures are identified. Mild wedging of the T3 vertebral body appears chronic. 3. Moderate multilevel thoracic spondylosis. 4. Generalized osteopenia compatible with osteoporosis. RADIA The above findings were discussed with Curry Cristobal by Dr. Mikey Salgado at 06:25 hrs on 07/28/18.
--- NOTE | 2018-07-28 06:35 | CT Report ---
Reason: fall, loc head, neck, back and pelvis pain Procedure Date: 07/28/2018 Accession Number: [id number] / [id number] Procedure: CT - Lumbar Spine W/O CPT Code: FULL RESULT: EXAM: CT LUMBAR SPINE WITHOUT CONTRAST EXAM DATE: 07/28/2018 05:32 AM. CLINICAL HISTORY: Fall, loc head, neck, back and pelvis pain. COMPARISONS: Lumbar spine x-ray 06/18/2018. TECHNIQUE: Thin-section axial images were acquired of the lumbar spine from T12 to S1 without contrast. Post-processing: Coronal and sagittal reformats. Other: None. In accordance with CT protocol optimization, one or more of the following dose reduction techniques were utilized for this exam: automated exposure control, adjustment of mA and/or KV based on patient size, or use of iterative reconstructive technique. FINDINGS: Alignment: There is mild left convexity lumbar scoliosis. There is no spondylolisthesis. Bones: Five [id number] lumbar vertebral bodies are present. The visualized osseous structures are osteopenic compatible with underlying osteoporosis. There is no evidence of a lumbar spine fracture. No destructive bone lesion is identified. Prominent Schmorl's node is noted in the inferior endplate of L2. Disk Levels/Facets: T12-L1: Unremarkable. L1-L2: Unremarkable. L2-L3: There is mild posterior endplate spurring and disk bulging. No significant canal or foraminal stenosis. L3-L4: There is anterior spurring and moderate disk narrowing. There is posterior spurring and mild disk bulging. There is bilateral facet hypertrophy. Central canal is mildly narrowed. No significant foraminal stenosis. L4-L5: Moderate disk narrowing and vacuum disk. Posterior endplate spurring and disk bulging and mild bilateral facet hypertrophy is present. Central canal is mildly narrowed. There is also mild bilateral foraminal narrowing. L5-S1: Moderate disk narrowing and vacuum disk. Mild posterior spurring and disk bulging. No significant central canal stenosis. Neural foramen are mild to moderately narrowed bilaterally. Musculature: Unremarkable. Other: The visualized retroperitoneum is unremarkable. IMPRESSION: 1. Generalized osteopenia compatible with osteoporosis. 2. No evidence of a lumbar spine fracture or subluxation. 3. Multilevel lumbar spondylosis and degenerative disk disease as detailed above. This results in mild central canal stenosis at L3-L4 and L4-L5. There is also mild to moderate bilateral foraminal narrowing at L4-L5 and L5-S1. 4. Mild left convexity lumbar scoliosis. RADIA
[2018-07-28 07:02] VITALS: BP 138/74
== END 2018-07-28 07:05 | disposition home or self-care (01) ==
LOC: EDUNIT# → EDSEX → ED 04:30
DX: S22.069A Unspecified fracture of T7-T8 vertebra, initial encounter for closed fracture (principal); S06.9X1A Unspecified intracranial injury with loss of consciousness of 30 minutes or less, initial encounter; S22.079A Unspecified fracture of T9-T10 vertebra, initial encounter for closed fracture; N39.0 Urinary tract infection, site not specified; I10 Essential (primary) hypertension; E11.9 Type 2 diabetes mellitus without complications; I48.91 Unspecified atrial fibrillation; Z79.01 Long term (current) use of anticoagulants; Z79.4 Long term (current) use of insulin; W18.39XA Other fall on same level, initial encounter; Y93.89 Activity, other specified; Y92.009 Unspecified place in unspecified non-institutional (private) residence as the place of occurrence of the external cause
CPT/HCPCS: 70450; 72125; 72128; 72131; 72192; 81001; 87086; 87181; 93005; 99284; A9270; 81003

== ENCOUNTER 2018-08-22 00:59 | Outpatient (CLI) | payer MEDICARE, OTHER | END 2018-08-22 01:00 | disposition critical access hospital (66) | LOC: EMS 00:59 | PROVIDERS: ATTEND Surgery | DX: R53.1 Weakness (principal); R53.83 Other fatigue; R41.0 Disorientation, unspecified; W18.30XA Fall on same level, unspecified, initial encounter; Y92.002 Bathroom of unspecified non-institutional (private) residence as the place of occurrence of the external cause | CPT/HCPCS: A0425; A0427 ==

== ENCOUNTER 2018-08-22 01:06 | Inpatient (IN) | payer MEDICARE, OTHER ==
--- NOTE | 2018-08-22 01:20 | ED Physician Documentation ---
PD HPI Fall - Stated complaint Stated Complaint: FELL - HIT HEAD - Chief complaint Chief Complaint: Neuro - History obtained from History obtained from: Patient (very limited in contribution to HPI/ROS due to AMS; s.o. 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 says patient seemed to have little sleep last night and that all day today he was drowsy and noticeably slower to respond than usual. He was exhibiting odd behaviors today such as pantomiming eating something when there wasn't anything in his hands. During the day and evening, he was increasingly insisting he had to use the bathroom to urinate, although he wasn't producing much urine most of the times he went to use the toilet. Approximately 1 hour PATTERN WORKER, s.o. had falling asleep and woke to the sound of patient falling to floor; she found him down the hallway, apparently was on his way to bathroom. He was awake when she found him, but she does not know what caused him to fall nor if he had LOC. BIBA. Hypotensive in field (SBP 84, improved en route with IV fluids) Review of Systems Unable to obtain: Other (limited due to AMS) Constitutional: denies: Fever GI: denies: Vomiting : reports: Frequency, Incontinent (not new) Neurologic: reports: Generalized weakness, Altered mental status. denies: Focal weakness, Numbness Endocrine: reports: Polyuria PD PAST MEDICAL HISTORY - Past Medical History Cardiovascular: Congestive heart failure, Hypertension Respiratory: Asthma, Shortness of breath, Sleep apnea, CPAP use Endocrine/Autoimmune: Type 2 diabetes GI: Ulcers : Benign prostate hypertrophy, Incontinence HEENT: None Psych: Depression, Anxiety Musculoskeletal: Osteoarthritis, Rheumatoid arthritis, Chronic back pain Derm: None - Past Surgical History Past Surgical History: Yes General: Appendectomy, Hiatal hernia repair Ortho: Hip replacement - Present Medications Home Medications: Ambulatory Orders Medication Instructions Recorded Confirmed Azelastine HCl 1 - 2 spray NS BID 05/02/14 08/22/18 Glimepiride 1 mg PO DAILY 05/02/14 08/22/18 Montelukast Sodium [Singulair] 10 mg PO DAILY 05/02/14 08/22/18 metFORMIN [Glucophage] 1,000 mg PO BID 05/02/14 08/22/18 Metoprolol Tartrate 50 mg PO BID 08/17/17 08/22/18 Rivaroxaban [Xarelto] 20 mg PO DAILY 08/17/17 08/22/18 Valsartan 320 mg PO DAILY 08/17/17 08/22/18 Acetaminophen 1,000 mg PO DAILY PRN 08/18/17 08/22/18 Citalopram Hydrobromide 10 mg PO DAILY 05/09/18 08/22/18 [Citalopram HBr] Torsemide 40 mg PO DAILY 05/09/18 08/22/18 Fexofenadine HCl 180 - 360 mg PO QPM 08/22/18 08/22/18 Insulin Degludec [Tresiba 20 unit SUBQ QPM PRN 08/22/18 08/22/18 Flextouch U-100] Potassium Chloride 10 meq PO DAILY 08/22/18 08/22/18 Ropinirole HCl 0.5 mg PO QPM 08/22/18 08/22/18 Rosuvastatin Calcium 5 mg PO Q48H 08/22/18 08/22/18 - Allergies Allergies/Adverse Reactions: Allergies Allergy/AdvReac Type Severity Reaction Status Date / Time oxycodone Allergy Unknown Verified 08/22/18 01:37 zolpidem [From Ambien] Allergy Unknown Verified 08/22/18 01:37 - Social History Does the pt smoke?: No Smoking Status: Never smoker Does the pt drink ETOH?: Yes Does the pt have substance abuse?: No - Immunizations Immunizations are current?: Yes - POLST Patient has POLST: Yes PD ED PE NORMAL - Vitals Vital signs reviewed: Yes - General General: No acute distress, Well developed/nourished, Other (drowsy; awakens to verbal stimulus. 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, No motor deficit, No sensory deficit, Normal speech Eye Opening: To Voice Motor: Obeys Commands Verbal: Oriented GCS Score: 14 PD ED PE EXPANDED - Cardiac Cardiac: Irregularly irregular Results - Vitals Vitals: Oxygen O2 Source Room air - EKG (time done) No standard instances Rate: Rate (enter#) (80) Rhythm: Atrial fibrillation Rodman: Normal Intervals: RBBB QRS: Normal Ischemia: Normal ST segments, Q waves (III, aVF) - Labs Labs: Laboratory Tests 08/22/18 08/22/18 08/22/18 01:20 01:20 01:20 WBC 8.7 RBC 2.97 L Hgb 9.8 L Hct 28.6 L MCV 96.5 H MCH 32.9 H MCHC 34.1 RDW 14.0 Plt Count 107 L MPV 10.0 Neut # (Auto) 7.1 H Lymph # (Auto) 0.7 L [place] # (Auto) 0.9 Eos # (Auto) 0.0 Baso # (Auto) 0.0 Absolute Nucleated RBC 0.00 Nucleated RBC % 0.0 PT INR APTT Sodium 138 Potassium 4.0 Chloride 100 L Carbon Dioxide 22 Anion Gap 16.0 H BUN 33 H Creatinine 1.4 H Estimated GFR (MDRD) 49 L Glucose 171 H Lactic Acid Calcium 9.6 Total Bilirubin 2.0 H AST 78 H ALT 52 Alkaline Phosphatase 158 H Troponin I < 0.04 B-Natriuretic Peptide Total Protein 6.8 Albumin 3.6 Globulin 3.2 Albumin/Globulin Ratio 1.1 Lipase 41 Urine Color Urine Clarity Urine pH Ur Specific [place] Urine Protein Urine Glucose (UA) Urine Ketones Urine Occult Blood Urine Nitrite Urine Bilirubin Urine Urobilinogen Ur Leukocyte Esterase Ur Microscopic Review Urine Culture Comments 08/22/18 08/22/18 08/22/18 01:20 01:20 01:20 WBC RBC Hgb Hct MCV MCH MCHC RDW Plt Count MPV Neut # (Auto) Lymph # (Auto) [place] # (Auto) Eos # (Auto) Baso # (Auto) Absolute Nucleated RBC Nucleated RBC % PT 36.5 H INR 3.3 H APTT 35.0 H Sodium Potassium Chloride Carbon Dioxide Anion Gap BUN Creatinine Estimated GFR (MDRD) Glucose Lactic Acid Calcium Total Bilirubin AST ALT Alkaline Phosphatase Troponin I B-Natriuretic Peptide 260 H Total Protein Albumin Globulin Albumin/Globulin Ratio Lipase Urine Color Urine Clarity Urine pH Ur Specific [place] Urine Protein Urine Glucose (UA) Urine Ketones Urine Occult Blood Urine Nitrite Urine Bilirubin Urine Urobilinogen Ur Leukocyte Esterase Ur Microscopic Review Urine Culture Comments 08/22/18 08/22/18 01:58 02:50 WBC RBC Hgb Hct MCV MCH MCHC RDW Plt Count MPV Neut # (Auto) Lymph # (Auto) [place] # (Auto) Eos # (Auto) Baso # (Auto) Absolute Nucleated RBC Nucleated RBC % PT INR APTT Sodium Potassium Chloride Carbon Dioxide Anion Gap BUN Creatinine Estimated GFR (MDRD) Glucose Lactic Acid 4.0 H* Calcium Total Bilirubin AST ALT Alkaline Phosphatase Troponin I B-Natriuretic Peptide Total Protein Albumin Globulin Albumin/Globulin Ratio Lipase Urine Color YELLOW Urine Clarity CLEAR Urine pH 6.0 Ur Specific [place] 1.020 Urine Protein NEGATIVE Urine Glucose (UA) NEGATIVE Urine Ketones NEGATIVE Urine Occult Blood NEGATIVE Urine Nitrite NEGATIVE Urine Bilirubin NEGATIVE Urine Urobilinogen 0.2 (NORMAL) Ur Leukocyte Esterase NEGATIVE Ur Microscopic Review NOT INDICATED Urine Culture Comments NOT INDICATED - Rads (name of study) CT head Radiology: Prelim report reviewed, See rad report chest xray Radiology: Prelim report reviewed, See rad report PD MEDICAL DECISION MAKING - ED course Complexity details: reviewed old records, reviewed results, re-evaluated patient, considered differential, d/w patient, d/w family ED course: Patient remained very drowsy during ED stay and had generalized weakness; s.o. says these are both unusual for him. Departure - Departure Disposition: 66 [facility] DC/Xfer Clinical Impression: Altered mental status Qualifiers: Altered mental status type: unspecified Qualified Code(s): R41.82 - Altered me ntal status, unspecified Condition: Stable Discharge Date/Time: 08/22/18 04:25
[2018-08-22 01:34] LABS: INR 3.3 (0.8-1.2); PT - PROTHROMBIN TIME 36.5 secs (9.9-12.6)
[2018-08-22 01:35] LABS: BASOPHILS % (AUTO) 0.3 %; EOSINOPHILS % (AUTO) 0.2 %; HGB - HEMOGLOBIN 9.8 g/dL (14.0-18.0); LYMPHOCYTES # (AUTO) 0.7 10^3/uL (1.5-3.5); LYMPHOCYTES % (AUTO) 8.3 %; MEAN CORPUSCULAR HEMOGLOBIN 32.9 pg (27.0-31.0); MEAN CORPUSCULAR HGB CONC 34.1 g/dL (32.0-36.0); MEAN CORPUSCULAR VOLUME 96.5 fL (80.0-94.0); MONOCYTES # (AUTO) 0.9 10^3/uL (0.0-1.0); MONOCYTES % (AUTO) 9.8 %; NEUTROPHILS # (AUTO) 7.1 10^3/uL (1.5-6.6); NEUTROPHILS % (AUTO) 81.4 %; PLT - PLATELET COUNT 107 10^3/uL (130-450); RED BLOOD COUNT 2.97 10^6/uL (4.70-6.10); WHITE BLOOD COUNT 8.7 x10^3/uL (4.8-10.8)
[2018-08-22 01:38] LABS: ALBUMIN 3.6 g/dL (3.2-5.5); ALBUMIN/GLOBULIN RATIO 1.1 (1.0-2.2); CALCIUM 9.6 mg/dL (8.5-10.3); CREATININE 1.4 mg/dL (0.6-1.2); TOTAL PROTEIN 6.8 g/dL (6.7-8.2)
[2018-08-22] MEDS ORDERED: SODIUM CHLORIDE 0.9% 500 ML IV STA (02:22)
--- NOTE | 2018-08-22 02:36 | XRAY Report ---
Reason: hypotension Procedure Date: 08/22/2018 Accession Number: [id number] / [id number] Procedure: XR - Chest 2 View X-Ray CPT Code: 85139 FULL RESULT: EXAM: CHEST RADIOGRAPHY EXAM DATE: 08/22/2018 02:14 AM. CLINICAL HISTORY: Hypotension. Generalized weakness. COMPARISON: CHEST 1 VIEW 06/18/2018 6:14 PM. TECHNIQUE: 2 views. FINDINGS: Lungs/Pleura: Pulmonary vascular congestion. Mild bibasilar atelectasis or infiltrate. No pleural effusions seen. No pneumothorax. Mediastinum: Mild cardiomegaly. Aortic atherosclerosis. Other: None. IMPRESSION: 1. Mild cardiomegaly and pulmonary vascular congestion. 2. Mild bibasilar atelectasis or infiltrate. [facility]
--- NOTE | 2018-08-22 02:42 | CT Report ---
Reason: fall, anticoagulated Procedure Date: 08/22/2018 Accession Number: [id number] / [id number] Procedure: CT - Head W/O CPT Code: FULL RESULT: EXAM: CT HEAD EXAM DATE: 08/22/2018 02:28 AM. CLINICAL HISTORY: Fall, anticoagulated. COMPARISON: 07/28/2018. TECHNIQUE: Multiaxial CT images were obtained from the foramen magnum to the vertex. Reformats: Sagittal and coronal. IV contrast: None. In accordance with CT protocol optimization, one or more of the following dose reduction techniques were utilized for this exam: automated exposure control, adjustment of mA and/or KV based on patient size, or use of iterative reconstructive technique. FINDINGS: Parenchyma: No intraparenchymal hemorrhage. No evidence of mass, midline shift, or CT findings of infarction. Alvarez-white differentiation is distinct. Extraaxial Spaces: Normal for age. No subdural or epidural collections identified. Ventricles: Normal in size and position. Sinuses and Orbits: Imaged paranasal sinuses, orbits, and mastoids show no significant abnormality. Bones: No evidence of fracture or calvarial defect. Other: None. IMPRESSION: No acute or focal intracranial abnormality. Stable findings since 07/28/2018. [facility]
[2018-08-22 02:58] LABS: BILIRUBIN,URINE NEGATIVE (NEGATIVE); GLUCOSE, URINE (UA) NEGATIVE (NEGATIVE); KETONES,URINE (UA) NEGATIVE (NEGATIVE); LEUKOCYTE ESTERASE, URINE NEGATIVE (NEGATIVE); NITRITE,URINE NEGATIVE (NEGATIVE); OCCULT BLOOD,URINE NEGATIVE (NEGATIVE); PROTEIN,URINE NEGATIVE (NEGATIVE); UROBILINOGEN,URINE 0.2 (NORMAL) E.U./dL (NORMAL)
[2018-08-22 03:00] LABS: CLARITY,URINE CLEAR (CLEAR)
[2018-08-22] MEDS ORDERED: ONDANSETRON 4 MG/2 ML VIAL IVP PRN (03:29)
[2018-08-22] MEDS ORDERED: oxyCODONE 5 MG TABLET PO PRN ×2 (03:29)
[2018-08-22] MEDS ORDERED: PROMETHAZINE 25 MG/1 ML VIAL IM PRN (03:29)
[2018-08-22] MEDS ORDERED: PROCHLORPERAZINE 10 MG/2 ML VIAL IVP PRN (03:29)
--- NOTE | 2018-08-22 03:40 | HISTORY & PHYSICAL EXAMINATION ---
Chief Complaint - Chief Complaint Chief Complaint: Generalized weakness History of Present Illness - Admitted From Admitted From:: Emergency Department - History Obtained From Records Reviewed: Yes History obtained from: Patient Exam Limitations: None - History of Present Illness HPI Comment/Other: Patient is an 82-year-old gentleman with a past medical history significant for insulin-dependent diabetes, obesity, hypertension, obstructive sleep apnea on CPAP, atrial fibrillation on Xarelto, asthma and congestive heart failure who presents to the emergency department with a chief complaint of generalized weakness. According to the patient's she noticed that the patient was more lethargic and confused throughout the day today. She states that he was just not himself so she checked his CPAP machine and it appeared that he had only been on CPAP for a short period of time throughout the night yesterday. She stated that throughout the day he seemed to be quite drowsy and somnolent. The patient was also having urinary urgency and had been going to the bathroom several times throughout the day. According to the patient he states that over the last 2 weeks he has been having intermittent diarrhea off and on. He states that he had 2-3 loose bowel movements today. He denies any fevers or chills. He states that he is also been having abdominal cramping more and more frequently over the last few days. He states that tonight he had gone to the bathroom because he had to urinate. He states that he was able to get to the bathroom and sit on the toilet and then had a difficult time getting up from the toilet. He states that he was finally able to get up but then states that he collapsed to the floor because he was so weak. He states that once he fell on his buttocks and denies hitting his head. He states that he tried to pull himself up by using the toilet and the counters. He states that he was too weak to get up. He states that that point he called out for his to help him. The patient's arrived in the bathroom and try to help the patient up but the patient was too weak and even with the help of his could not get up. The patient denies having any dizziness or loss of consciousness during this episode. The patient denies any coughing, chest pain or shortness of air. The patient denies any dysuria. The patient was recently diagnosed with a urinary tract infection and just completed antibiotic treatment today. The patient does admit to some pain in his lower back since the fall earlier in the evening. Patient denies any headaches, blurred vision, runny nose, sore throat, nasal congestion, difficulty swallowing, orthopnea, PND, increased lower extremity swelling, nausea, vomiting, constipation, joint swelling, muscle aches, neck stiffness, recent unintentional weight loss, changes in his appetite, skin changes, polyuria, polydipsia, night sweats or any focal neurologic deficits. When paramedics arrived at the patient's home they found that the patient was hypotensive with a blood pressure of 80 systolic. They were able to help the patient up but given his hypotension and his lethargy they brought him into the emergency department. On presentation to the emergency department the patient was quite somnolent and initial vital signs were stable. The patient was slightly tachypneic but was saturating well on room air. The patient did not shannon ve any fevers in the emergency department. The patient underwent routine lab work which did reveal an elevated lactic acid of 4.0 with an elevated creatinine of 1.4 up from his baseline of 0.9. The patient had mildly elevated LFTs with a total bilirubin of 2.0 and AST of 78 along with an alk phos of 158. The patient's urine analysis was negative. The patient's chest x-ray revealed bibasilar atelectasis but no obvious infiltrates. The patient also underwent a CT of his head given that he had fallen and also on Xarelto but the CT of the head was negative. Given the patient's generalized weakness, lethargy in conjunction with an elevated lactic acid and acute kidney injury the patient corey ears to have endorgan damage and we were concerned for possible sepsis. The patient was admitted to the medical white for treatment of sepsis and close monitoring. History - Past Medical History Cardiovascular: reports: Congestive heart failure, Hypertension Respiratory: reports: Asthma, Shortness of breath, Sleep apnea, CPAP use Endocrine/Autoimmune: reports: Type 2 diabetes GI: reports: Ulcers : reports: Benign prostate hypertrophy, Incontinence HEENT: reports: None Psych: reports: Depression, Anxiety Musculoskeletal: reports: Osteoarthritis, Rheumatoid arthritis, Chronic back pain Derm: reports: None MRSA Hx?: No - Past Surgical History General: reports: Appendectomy, Hiatal hernia repair Ortho: reports: Hip replacement - Family & Social History Family History: Mother: (Mother and father both lived to be 94 years old and of old age. Patient states everyone in the family has been healthy), Father: Living arrangement: At home Living Situation: With spouse/s.o. Social History Notes: The patient lives with his girlfriend in [place]. They are planning to get in the [facility] next month. The patient is originally from the [facility] and his family still lives out there. The patient has been living on [facility] off and on for the last 8 years. 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 The patient does not have any children. He and his girlfriend together drink a bottle of wine with dinner each night. The patient does not smoke and he denies any illicit drug use. He gets around the house with a walker. - POLST Patient has POLST: No POLST Status: Full Code Meds/Allgy - Home Medications Home Medications: Ambulatory Orders Medication Instructions Recorded Confirmed Azelastine HCl 137 mcg NS BID 05/02/14 05/17/18 Fexofenadine [Georgette] 180 mg QPM 05/02/14 05/17/18 Fluticasone [Flonase] 2 sprays DAILY 05/02/14 05/17/18 Glimepiride 1 mg PO DAILY 05/02/14 05/17/18 Montelukast Sodium [Singulair] 10 mg PO QPM 05/02/14 05/17/18 metFORMIN [Glucophage] 1,000 mg PO BID 05/02/14 05/17/18 Insulin Glargine [Lantus Solostar] 28 unit SQ 2100 08/17/17 05/17/18 Metoprolol Tartrate 50 mg PO BID 08/17/17 05/17/18 Nystatin 1 each PO BID 08/17/17 05/17/18 Rivaroxaban [Xarelto] 20 mg PO DAILY 08/17/17 05/17/18 Ropinirole HCl [Requip] 0.5 tab PO QPM 08/17/17 05/17/18 Valsartan 320 mg PO DAILY 08/17/17 05/17/18 Acetaminophen 1,000 mg PO DAILY PRN 08/18/17 05/17/18 Albuterol Sulfate [Proair 2 inh IH DAILY 05/09/18 05/09/18 Respiclick] Citalopram Hydrobromide 10 mg PO DAILY 05/09/18 05/09/18 [Citalopram HBr] Torsemide 40 mg PO DAILY 05/09/18 05/09/18 Tramadol HCl 50 - 100 mg PO Q6HR PRN #20 tablet 06/18/18 Nitrofurantoin Monohyd/M-Cryst 100 mg PO BID 7 Days capsule 07/28/18 [Macrobid 100 mg Capsule] - Allergies Allergies/Adverse Reactions: Allergies Allergy/AdvReac Type Severity Reaction Status Date / Time oxycodone Allergy Unknown Verified 08/22/18 01:37 zolpidem [From Ambien] Allergy Unknown Verified 08/22/18 01:37 Review of Systems - Other Findings Other Findings: A comprehensive review of systems was performed the pertinent positives and negatives are stated above in the HPI and the remainder of the review of systems is negative. Prior Level of Functionality: The patient is mostly independent and gets around the house with his walker. 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 His does do most of the cooking around the house and most of the shopping. The patient's is 30 years younger than him. Exam - Vital Signs Reviewed Vital Signs: Yes Vital Signs: Vital Signs x48h Temp Pulse Resp BP Pulse Ox 08/22/18 02:56 83 25 H 114/60 98 08/22/18 02:26 37.0 C 85 26 H 120/72 95 08/22/18 01:37 82 26 H 104/59 L 95 08/22/18 01:10 36.5 C 90 22 115/63 95 - Physical Exam General Appearance: positive: No acute distress, Alert, Other (Obese) Eyes Bilateral: positive: Normal inspection, PERRL, EOMI, No lid inflammation, Conjunctivae nml, No scleral icterus ENT: positive: ENT inspection nml, Pharynx nml, Dry mucous membranes. negative: Purulent nasal drainage, Pharyngeal erythema, Oral lesions Neck: positive: Nml inspection, Thyroid nml, No JVD, Trachea midline. negative: Thyromegaly, Lymphadenopathy (R), Lymphadenopathy (L), Stiff neck, Carotid bruit, Swelling/bruising, Tracheal deviation Respiratory: positive: Chest non-tender, No respiratory distress, Breath sounds nml, Rales (Basis) Cardiovascular: positive: No murmur, No gallop, Irregularly irregular Peripheral Pulses: positive: 2+ Abdomen: positive: No organomegaly, Nml bowel sounds, No distention, Tenderness (Mild tenderness in the epigastric and right and left upper quadrant areas. Soft abdomen without peritoneal signs and normal bowel sounds.). negative: Guarding, Rebound, Hepatomegaly Back: positive: Nml inspection. negative: CVA tenderness (R), CVA tenderness (L) Skin: positive: Color nml, No rash, Warm, Dry. negative: Cyanosis, Diaphoresis, Pallor Extremities: positive: Non-tender, Full ROM, Nml appearance, No pedal edema Neurologic/Psychiatric: positive: Oriented x3, CN's nml (2-12), Motor nml, Sensation nml, Mood/affect nml Conclusion/Plan - Problem List (1) Sepsis Conclusion/Plan: Patient presented with generalized weakness and somnolence. On presentation the patient's lactic acid was elevated at 4.0 and he had acute renal failure with a creatinine that was elevated at 1.4. Although the patient did not have leukocytosis or fever he was tachypneic on presentation. The patient's pre sentation is quite concerning for sepsis. Patient's initial infectious workup was negative with a negative chest x-ray and a negative urine analysis. The patient was admitted with sepsis of unknown etiology. Blood cultures were obtained in the medical white and patient was started on broad-spectrum antibiotics. Plan: IV vancomycin and IV cefepime Follow-up blood cultures Monitor closely for hypotension or worsening of symptoms Consider repeat chest x-ray if patient has decline in respiratory status Abdominal ultrasound given abdominal tenderness and diarrhea Stool cultures IV fluids Monitor lactic acid Qualifiers: Sepsis type: sepsis due to unspecified organism Qualified Code(s): A41.9 - Sepsis, unspecified organism (2) JANAE (acute kidney injury) Conclusion/Plan: The patient presented with acute kidney injury. This appears to be in the setting of sepsis and likely patient has prerenal azotemia. Patient will be given IV fluids and we will continue to monitor the patient's creatinine. We will avoid nephrotoxic agents. (3) Altered mental status Conclusion/Plan: The patient presented with somnolence and has been lethargic throughout the day at home. This appears to be secondary to sepsis given the patient presented with a lactic acid of 4.0 acute kidney injury and generalized weakness. The source of the patient's sepsis is currently unknown. The patient's altered mental status appears to be improving with IV fluids as the patient is much more alert and oriented when seen on the medical white. Patient likely has metabolic encephalopathy which appears to be resolving with fluids and antibiotics. Consider getting an ABG if patient has further lethargy as patient is at risk of possible hypercapnia. Qualifiers: Altered mental status type: unspecified Qualified Code(s): R41.82 - Altered mental status, unspecified (4) Elevated LFTs Conclusion/Plan: The patient has elevated LFTs. The patient's bilirubin is 2.0 and AST is 78. The patient's alk phos is 158. The patient also has an elevated INR and low platelet count. This concerns me for possible hepatotoxicity. This could be from alcohol use as the patient does drink alcohol daily. Plan: Get an abdominal ultrasound Consider CT abdomen if patient continues to have elevated LFTs. (5) MARISOL on CPAP Conclusion/Plan: Patient is a history of obstructive sleep apnea on CPAP. The patient will be continued on home CPAP once the patient's brings it into the hospital. If the patient continues to have lethargy we will consider an ABG to look for hypercapnia. (6) Diabetes Conclusion/Plan: Patient has a history of type 2 diabetes mellitus on insulin. The patient's blood glucose is elevated on presentation at 171. Plan: Continue patient's home dose of Lantus Place patient on sliding scale insulin while hospitalized Check hemoglobin A1c Check blood glucose before meals at bedtime. Qualifiers: Diabetes mellitus type: type 2 Diabetes mellitus [facility] insulin use: with [facility] use Diabetes mellitus complication status: with hyperglycemia Qualified Code(s): E11.65 - Type 2 diabetes mellitus with hyperglycemia; Z79.4 - [facility] (current) use of insulin (8) Atrial fibrillation Conclusion/Plan: The patient has a history of chronic atrial fibrillation and is on Xarelto for anticoagulation as well as metoprolol for rate control. We will monitor the patient on telemetry. Patient's most recent echocardiogram is from 1 year ago therefore we will also get an echocardiogram while the patient is hospitalized. Qualifiers: Atrial fibrillation type: chronic Qualified Code(s): I48.2 - Chronic atrial fibrillation (9) Congestive heart failure (CHF) Conclusion/Plan: The patient is a history of diastolic heart failure. Currently the patient appears to have no symptoms of congestive heart failure and is stable. We will continue to manage his blood pressure and control his heart rate. We will get an echocardiogram. Patient will be continued on metoprolol. We will hold valsartan and furosemide given the patient's acute renal failure. Qualifiers: Heart failure type: diastolic - Lab Results Lab results reviewed: Yes Fish Bones: 08/22/18 01:20 08/22/18 01:20 Other Lab Results: Laboratory Results WBC 8.7 x10^3/uL (4.8-10.8) 08/22/18 01:20 RBC 2.97 10^6/uL (4.70-6.10) L 08/22/18 01:20 Hgb 9.8 g/dL (14.0-18.0) L 08/22/18 01:20 Hct 28.6 % (42.0-52.0) L 08/22/18 01:20 MCV 96.5 fL (80.0-94.0) H 08/22/18 01:20 MCH 32.9 pg (27.0-31.0) H 08/22/18 01:20 MCHC 34.1 g/dL (32.0-36.0) 08/22/18 01:20 RDW 14.0 % (12.0-15.0) 08/22/18 01:20 Plt Count 107 10^3/uL (130-450) L 08/22/18 01:20 MPV 10.0 fL (7.4-11.4) 08/22/18 01:20 Neut # (Auto) 7.1 10^3/uL (1.5-6.6) H 08/22/18 01:20 Lymph # (Auto) 0.7 10^3/uL (1.5-3.5) L 08/22/18 01:20 Morrill # (Auto) 0.9 10^3/uL (0.0-1.0) 08/22/18 01:20 Eos # (Auto) 0.0 10^3/uL (0.0-0.7) 08/22/18 01:20 Baso # (Auto) 0.0 10^3/uL (0.0-0.1) 08/22/18 01:20 Absolute Nucleated RBC 0.00 x10^3/uL 08/22/18 01:20 Nucleated RBC % 0.0 /100WBC 08/22/18 01:20 PT 36.5 secs (9.9-12.6) H 08/22/18 01:20 INR 3.3 (0.8-1.2) H 08/22/18 01:20 APTT 35.0 secs (24.9-33.3) H 08/22/18 01:20 Sodium 138 mmol/L (135-145) 08/22/18 01:20 Potassium 4.0 mmol/L (3.5-5.0) 08/22/18 01:20 Chloride 100 mmol/L (101-111) L 08/22/18 01:20 Carbon Dioxide 22 mmol/L (21-32) 08/22/18 01:20 Anion Gap 16.0 (6-13) H 08/22/18 01:20 BUN 33 mg/dL (6-20) H 08/22/18 01:20 Creatinine 1.4 mg/dL (0.6-1.2) H 08/22/18 01:20 Estimated GFR (MDRD) 49 (>89) L 08/22/18 01:20 Glucose 171 mg/dL (70-100) H 08/22/18 01:20 Lactic Acid 4.0 mmol/L (0.5-2.2) H* 08/22/18 01:58 Calcium 9.6 mg/dL (8.5-10.3) 08/22/18 01:20 Total Bilirubin 2.0 mg/dL (0.2-1.0) H 08/22/18 01:20 AST 78 IU/L (10-42) H 08/22/18 01:20 ALT 52 IU/L (10-60) 08/22/18 01:20 Alkaline Phosphatase 158 IU/L (42-121) H 08/22/18 01:20 Troponin I < 0.04 ng/mL (<0.49) 08/22/18 01:20 B-Natriuretic Peptide 260 pg/mL (5-100) H 08/22/18 01:20 Total Protein 6.8 g/dL (6.7-8.2) 08/22/18 01:20 Albumin 3.6 g/dL (3.2-5.5) 08/22/18 01:20 Globulin 3.2 g/dL (2.1-4.2) 08/22/18 01:20 Albumin/Globulin Ratio 1.1 (1.0-2.2) 08/22/18 01:20 Lipase 41 U/L (22-51) 08/22/18 01:20 Urine Color YELLOW 08/22/18 02:50 Urine Clarity CLEAR (CLEAR) 08/22/18 02:50 Urine pH 6.0 PH (5.0-7.5) 08/22/18 02:50 Ur Specific [place] 1.020 (1.002-1.030) 08/22/18 02:50 Urine Protein NEGATIVE mg/dL (NEGATIVE) 08/22/18 02:50 Urine Glucose (UA) NEGATIVE mg/dL (NEGATIVE) 08/22/18 02:50 Urine Ketones NEGATIVE mg/dL (NEGATIVE) 08/22/18 02:50 Urine Occult Blood NEGATIVE (NEGATIVE) 08/22/18 02:50 Urine Nitrite NEGATIVE (NEGATIVE) 08/22/18 02:50 Urine Bilirubin NEGATIVE (NEGATIVE) 08/22/18 02:50 Urine Urobilinogen 0.2 (NORMAL) E.U./dL (NORMAL) 08/22/18 02:50 Ur Leukocyte Esterase NEGATIVE (NEGATIVE) 08/22/18 02:50 Ur Microscopic Review NOT INDICATED 08/22/18 02:50 Urine Culture Comments NOT INDICATED 08/22/18 02:50 - Diagnostic Imaging Results Diagnostic Imaging Results: positive: Final report reviewed Diagnostic Imaging Results Comments: CT head Impression: No acute or focal intracranial abnormality. Stable findings since 07/28/2018 Chest x-ray Impression: 1. Mild cardiomegaly and pulmonary vascular congestion. 2. Mild bibasilar atelectasis or infiltrate. Core Measures - Anticipated LOS I expect patient to be DC'd or transferred within 96 hours.: Yes - DVT/VTE - Prophylaxis VTE/DVT Device ordered at admit?: Yes
[2018-08-22] MEDS ORDERED: SODIUM CHLORIDE 0.9% 1,000 ML IV SCH (04:00)
[2018-08-22] MEDS ORDERED: VANCOMYCIN PER PHARMACY 0.001 GM in SODIUM CHLORIDE 0.9% 250 ML IV PRN (04:31)
[2018-08-22] MEDS: CEFEPIME 2 GM in SODIUM CHLORIDE 0.9% MINIBAG 100 ML IV SCH ×3 (04:50→21:42)
[2018-08-22] MEDS: SODIUM CHLORIDE FLUSH 0.9% 10 ML SYRINGE IVP PRN (04:50)
[2018-08-22] MEDS ORDERED: VANCOMYCIN INJ 1.75 GM in SODIUM CHLORIDE 0.9% 500 ML IV SCH ×2 (05:00→17:00)
[2018-08-22 05:39] LABS: BASOPHILS % (AUTO) 0.3 %; EOSINOPHILS % (AUTO) 0.3 %; HGB - HEMOGLOBIN 9.4 g/dL (14.0-18.0); LYMPHOCYTES # (AUTO) 1.1 10^3/uL (1.5-3.5); MEAN CORPUSCULAR HEMOGLOBIN 32.8 pg (27.0-31.0); MEAN CORPUSCULAR HGB CONC 33.8 g/dL (32.0-36.0); MEAN CORPUSCULAR VOLUME 96.8 fL (80.0-94.0); MEAN PLATELET VOLUME 9.1 fL (7.4-11.4); MONOCYTES # (AUTO) 0.8 10^3/uL (0.0-1.0); MONOCYTES % (AUTO) 10.5 %; NEUTROPHILS # (AUTO) 5.6 10^3/uL (1.5-6.6); NEUTROPHILS % (AUTO) 73.9 %; PLT - PLATELET COUNT 99 10^3/uL (130-450); RED BLOOD COUNT 2.88 10^6/uL (4.70-6.10); RED CELL DISTRIBUTION WIDTH 14.3 % (12.0-15.0); WHITE BLOOD COUNT 7.6 x10^3/uL (4.8-10.8)
[2018-08-22 05:52] LABS: MAGNESIUM 1.5 mg/dL (1.7-2.8); PHOSPHORUS 3.2 mg/dL (2.5-4.6)
[2018-08-22 05:55] LABS: HB2 TOTAL 9.6 g/dL; HEMOGLOBIN A1C 0.35 g/dL; HEMOGLOBIN A1C % 5.5 % (4.6-6.2)
[2018-08-22] MEDS: PANTOPRAZOLE 40 MG TABLET PO SCH (06:34)
[2018-08-22] MEDS ORDERED: NON FORMULARY MED (Rivaroxaban [Xarelto] 20 MG) PO SCH (09:00)
[2018-08-22] MEDS ORDERED: NYSTATIN PO SCH (09:00)
[2018-08-22] MEDS: INSULIN ASPART 300 UNIT/3 ML PEN SUBQ SCH ×4 (09:46→21:41)
[2018-08-22] MEDS: MAGNESIUM OXIDE 400 MG TABLET PO SCH (09:46)
[2018-08-22] MEDS: METOPROLOL TARTRATE 50 MG TABLET PO SCH ×2 (09:46→21:41)
[2018-08-22] MEDS: NYSTATIN POWDER 15 GM TOP SCH ×2 (09:47→21:44)
[2018-08-22] MEDS: SODIUM CHLORIDE FLUSH 0.9% 10 ML SYRINGE IVP SCH ×2 (09:48→16:29)
[2018-08-22] MEDS: POLYETHYLENE GLYCOL 3350 17 GM PACKET PO SCH (09:48)
[2018-08-22] MEDS: RIVAROXABAN 15 MG TABLET PO SCH (17:18)
[2018-08-22] MEDS: VANCOMYCIN INJ 1.75 GM in SODIUM CHLORIDE 0.9% 500 ML IV SCH (17:41)
--- NOTE | 2018-08-22 18:23 | Ultrasound Report ---
Reason: Elevated Bilirubin, sepsis, alcohol abuse Procedure Date: 08/22/2018 Accession Number: [id number] / [id number] Procedure: US - Abdomen Complete CPT Code: FULL RESULT: EXAM: ABDOMEN ULTRASOUND EXAM DATE: 08/22/2018 05:28 PM. CLINICAL HISTORY: Elevated Bilirubin, sepsis, alcohol abuse. COMPARISON: None available. TECHNIQUE: Real-time scanning was performed with static images obtained. FINDINGS: Liver: Heterogeneous, coarse echotexture with surface nodularity. The right hepatic lobe is limited in visualization. Possible hypoechoic liver mass in the left hepatic lobe measuring 3.9 x 3.4 x 4.4 cm. 19.8 cm. Main portal vein flow: Hepatopetal. Gallbladder: Limited evaluation of the gallbladder. Mild wall thickening measuring 4.6 mm. No definite stones or pericholecystic fluid. Biliary System: Common bile duct measures 6 mm. No intrahepatic or extrahepatic ductal dilatation. Pancreas: Not well seen. Kidneys: Right: 12.2 cm longitudinally. Not well seen. Left: 14 cm longitudinally. Not well seen. Spleen: 16.8 x 6.4 x 7.3 cm. Moderately enlarged. Aorta and Inferior Vena Cava: Not well seen. Other: None. IMPRESSION: Exam limited by patient body habitus and inability to cooperate with the exam. Heterogeneous, coarse hepatic echotexture with apparent surface nodularity, which may be secondary to cirrhosis or other hepatocellular disease. Possible liver mass, which could be further evaluated with CT or MRI. [facility]
[2018-08-22] MEDS: ACETAMINOPHEN 325 MG TABLET PO PRN (19:18)
[2018-08-22] MEDS ORDERED: INSULIN GLARGINE 300 UNIT/3 ML PEN SUBQ SCH (21:00)
[2018-08-22] MEDS: rOPINIRole 0.25 MG TABLET PO SCH (21:49)
[2018-08-22] MEDS: MONTELUKAST 10 MG TABLET PO SCH (21:49)
[2018-08-23] MEDS: ACETAMINOPHEN 325 MG TABLET PO PRN ×2 (00:15→08:21)
[2018-08-23 05:57] LABS: BASOPHILS % (AUTO) 0.7 %; EOSINOPHILS # (AUTO) 0.4 10^3/uL (0.0-0.7); EOSINOPHILS % (AUTO) 6.6 %; HGB - HEMOGLOBIN 8.6 g/dL (14.0-18.0); LYMPHOCYTES # (AUTO) 1.2 10^3/uL (1.5-3.5); LYMPHOCYTES % (AUTO) 21.1 %; MEAN CORPUSCULAR HEMOGLOBIN 32.7 pg (27.0-31.0); MEAN CORPUSCULAR HGB CONC 33.3 g/dL (32.0-36.0); MEAN CORPUSCULAR VOLUME 98.2 fL (80.0-94.0); MONOCYTES # (AUTO) 0.7 10^3/uL (0.0-1.0); MONOCYTES % (AUTO) 12.9 %; NEUTROPHILS # (AUTO) 3.3 10^3/uL (1.5-6.6); NEUTROPHILS % (AUTO) 58.7 %; PLT - PLATELET COUNT 90 10^3/uL (130-450); RED BLOOD COUNT 2.63 10^6/uL (4.70-6.10); RED CELL DISTRIBUTION WIDTH 14.4 % (12.0-15.0); WHITE BLOOD COUNT 5.7 x10^3/uL (4.8-10.8)
[2018-08-23 06:10] LABS: ALBUMIN/GLOBULIN RATIO 1.1 (1.0-2.2); ALKALINE PHOSPHATASE 117 IU/L (42-121); ALT ALANINE AMINOTRANSFERASE 40 IU/L (10-60); AST ASPARTATE AMINOTRANSFERASE 49 IU/L (10-42); BILIRUBIN,TOTAL 1.8 mg/dL (0.2-1.0); BUN - BLOOD UREA NITROGEN 36 mg/dL (6-20); CALCIUM 8.9 mg/dL (8.5-10.3); CARBON DIOXIDE - CO2 26 mmol/L (21-32); CHLORIDE 103 mmol/L (101-111); CREATININE 1.2 mg/dL (0.6-1.2); GFR - MDRD 58 (>89); GLUCOSE 117 mg/dL (70-100); MAGNESIUM 1.8 mg/dL (1.7-2.8); PHOSPHORUS 3.2 mg/dL (2.5-4.6); SODIUM 136 mmol/L (135-145); TOTAL PROTEIN 5.7 g/dL (6.7-8.2)
[2018-08-23] MEDS: CEFEPIME 2 GM in SODIUM CHLORIDE 0.9% MINIBAG 100 ML IV SCH ×3 (06:16→20:08)
[2018-08-23] MEDS: PANTOPRAZOLE 40 MG TABLET PO SCH (06:18)
[2018-08-23] MEDS: SODIUM CHLORIDE FLUSH 0.9% 10 ML SYRINGE IVP SCH ×3 (06:21→19:50)
[2018-08-23] MEDS: SODIUM CHLORIDE FLUSH 0.9% 10 ML SYRINGE IVP PRN (06:57)
[2018-08-23] MEDS: POLYETHYLENE GLYCOL 3350 17 GM PACKET PO SCH (08:21)
[2018-08-23] MEDS: METOPROLOL TARTRATE 50 MG TABLET PO SCH ×2 (08:22→20:06)
[2018-08-23] MEDS: MAGNESIUM OXIDE 400 MG TABLET PO SCH (08:22)
[2018-08-23] MEDS: NYSTATIN POWDER 15 GM TOP SCH ×2 (08:23→21:16)
[2018-08-23] MEDS: INSULIN ASPART 300 UNIT/3 ML PEN SUBQ SCH ×4 (08:23→21:14)
[2018-08-23] MEDS ORDERED: INSULIN DEGLUDEC 20 UNIT SUBQ PRN (15:44)
[2018-08-23] MEDS: VANCOMYCIN INJ 1.75 GM in SODIUM CHLORIDE 0.9% 500 ML IV SCH (16:35)
[2018-08-23] MEDS: RIVAROXABAN 15 MG TABLET PO SCH (16:47)
--- NOTE | 2018-08-23 19:34 | PROVIDER PROGRESS NOTE ---
Subjective - Prog Note Date Prog Note Date: 08/23/18 Prog Note Time: 19:33 - Subjective Pt reports feeling: Improved Subjective: He really cannot move. Just getting to the edge of the bed to sit requires extraordinary effort and to standby assist. Once he is standing up, however he can walk quite nicely. He is much more alert. His fiance feels like he cannot go home because he requires way too much help Current Medications - Current Medications Current Medications: Active Medications Acetaminophen (Tylenol) 650 mg PO Q4HR PRN PRN Reason: Pain 1 to 4 Last Admin: 08/23/18 08:21 Dose: 650 mg Albuterol () 2.5 mg INH RTQ4H PRN PRN Reason: Wheezing Cefepime HCl 2 gm/ Sodium (Chloride) 100 mls @ 200 mls/hr IV Q8H [facility] Last Infusion: 08/23/18 14:35 Dose: Infused Vancomycin HCl 0.001 gm/ (Sodium Chloride) 250 mls @ 0 mls/hr IV PRN PRN PRN Reason: VANCO PER PHARMACY Vancomycin HCl 1.75 gm/ Sodium (Chloride) 500 mls @ 250 mls/hr IV Q24H [facility] Last Admin: 08/23/18 16:35 Dose: 250 mls/hr Insulin Aspart (Novolog) 1 - 9 unit SUBQ 0800,1200,1700,2100 [facility]; Protocol Last Admin: 08/23/18 16:35 Dose: Not Given Insulin Glargine (Lantus Solostar) 28 unit SUBQ 2100 [facility] Last Admin: 08/22/18 21:42 Dose: 28 unit Magnesium Oxide (Mag Ox) 400 mg PO DAILYWM [facility] Last Admin: 08/23/18 08:22 Dose: 400 mg Metoprolol Tartrate (Lopressor) 50 mg PO BID [facility] Last Admin: 08/23/18 08:22 Dose: 50 mg Montelukast Sodium (Singulair) 10 mg PO QPM [facility] Last Admin: 08/22/18 21:49 Dose: 10 mg Non-Formulary Medication (Insulin Degludec [Tresiba Flextouch U-100]) 20 unit SUBQ QPM PRN PRN Reason: PER PHYSICIAN ORDER Nystatin (Nystop) 1 applic TOP BID [facility] Last Admin: 08/23/18 08:23 Dose: 1 applic Ondansetron HCl (Zofran Inj) 4 mg IVP Q6HR PRN PRN Reason: Nausea / Vomiting Oxycodone HCl (Roxicodone) 5 mg PO Q4HR PRN PRN Reason: Pain 5 to 7 Oxycodone HCl (Roxicodone) 10 mg PO Q4HR PRN PRN Reason: Pain 8 to 10 Pantoprazole Sodium (Protonix) 40 mg PO QDAC [facility] Last Admin: 08/23/18 06:18 Dose: 40 mg Polyethylene Glycol (Miralax) 17 gm PO DAILY [facility] Last Admin: 08/23/18 08:21 Dose: 17 gm Prochlorperazine Edisylate (Compazine Inj) 10 mg IVP Q6HR PRN PRN Reason: Nausea / Vomiting Promethazine HCl (Phenergan Inj) 25 mg IM Q6HR PRN PRN Reason: Nausea / Vomiting Rivaroxaban (Xarelto) 15 mg PO QDDINNER [facility] Last Admin: 08/23/18 16:47 Dose: 15 mg Ropinirole HCl (Requip) 0.5 mg PO QPM [facility] Last Admin: 08/22/18 21:49 Dose: 0.5 mg Sodium Chloride (Normal Saline Flush 0.9%) 10 ml IVP PRN PRN PRN Reason: NEEDED PER PROVIDER ORDERS Last Admin: 08/23/18 06:57 Dose: 10 ml Sodium Chloride (Normal Saline Flush 0.9%) 10 ml IVP 0100,0900,1700 [facility] Last Admin: 08/23/18 08:23 Dose: 10 ml Azelastine HCl 1 - 2 spray NS BID 05/02/14 Glimepiride 1 mg PO DAILY 05/02/14 Montelukast Sodium [Singulair] 10 mg PO DAILY 05/02/14 metFORMIN [Glucophage] 1,000 mg PO BID 05/02/14 Metoprolol Tartrate 50 mg PO BID 08/17/17 Rivaroxaban [Xarelto] 20 mg PO DAILY 08/17/17 Valsartan 320 mg PO DAILY 08/17/17 Acetaminophen 1,000 mg PO DAILY PRN 08/18/17 Citalopram Hydrobromide [Citalopram HBr] 10 mg PO DAILY 05/09/18 Torsemide 40 mg PO DAILY 05/09/18 Fexofenadine HCl 180 - 360 mg PO QPM 08/22/18 Insulin Degludec [Tresiba Flextouch U-100] 20 unit SUBQ QPM PRN 08/22/18 Potassium Chloride 10 meq PO DAILY 08/22/18 Ropinirole HCl 0.5 mg PO QPM 08/22/18 Rosuvastatin Calcium 5 mg PO Q48H 08/22/18 Objective - Vital Signs/Intake & Output Reviewed Vital Signs: Yes Vital Signs: Vital Signs x48h Temp Pulse Resp BP Pulse Ox 08/23/18 15:39 36.8 C 69 18 105/56 L 98 08/23/18 13:33 36.7 C 94 20 91/52 L 96 Intake & Output: Intake & Output 08/20/18 08/21/18 08/22/18 08/23/18 23:59 23:59 23:59 23:59 Intake Total 3140.000 1626 Output Total 730 450 Balance 2410.000 1176 - Objective General Appearance: positive: No acute distress, Alert, Other (Morbidly obese jovial elderly gentleman slightly deaf requiring quite a bit of help just to get him out of bed) Eyes Bilateral: positive: PERRL, EOMI ENT: positive: Pharynx nml Neck: positive: No JVD. negative: Carotid bruit Respiratory: positive: Chest non-tender (Huge barrel chest). negative: Wheezes, Rales, Rhonchi Cardiovascular: positive: Irregularly irregular. negative: Gallop/S4, Friction rub Abdomen: positive: Non-tender, Nml bowel sounds, No distention, Other (Very large abdominal pannus). negative: Guarding, Rebound Skin: positive: Warm, Dry Extremities: positive: Full ROM, Pedal edema Neurologic/Psychiatric: positive: Oriented x3, CN's nml (2-12), Motor nml (But diffuse generalized weakness requiring standby assist) - Lab Results Fish Bones: 08/23/18 05:35 08/23/18 05:35 Other Labs: Lab Results x24hrs 08/23/18 08/23/18 08/23/18 Range/Units 05:35 05:35 05:35 WBC 5.7 (4.8-10.8) x10^3/uL RBC 2.63 L (4.70-6.10) 10^6/uL Hgb 8.6 L (14.0-18.0) g/dL Hct 25.8 L (42.0-52.0) % MCV 98.2 H (80.0-94.0) fL MCH 32.7 H (27.0-31.0) pg MCHC 33.3 (32.0-36.0) g/dL RDW 14.4 (12.0-15.0) % Plt Count 90 L (130-450) 10^3/uL MPV 10.0 (7.4-11.4) fL Neut # (Auto) 3.3 (1.5-6.6) 10^3/uL Lymph # (Auto) 1.2 L (1.5-3.5) 10^3/uL [place] # (Auto) 0.7 (0.0-1.0) 10^3/uL Eos # (Auto) 0.4 (0.0-0.7) 10^3/uL Baso # (Auto) 0.0 (0.0-0.1) 10^3/uL Absolute Nucleated RBC 0.00 x10^3/uL Nucleated RBC % 0.1 /100WBC Sodium 136 (135-145) mmol/L Potassium 3.9 (3.5-5.0) mmol/L Chloride 103 (101-111) mmol/L Carbon Dioxide 26 (21-32) mmol/L Anion Gap 7.0 (6-13) BUN 36 H (6-20) mg/dL Creatinine 1.2 (0.6-1.2) mg/dL Estimated GFR (MDRD) 58 L (>89) Glucose 117 H (70-100) mg/dL Calcium 8.9 (8.5-10.3) mg/dL Ionized Calcium NO Phosphorus 3.2 (2.5-4.6) mg/dL Magnesium 1.8 (1.7-2.8) mg/dL Total Bilirubin 1.8 H (0.2-1.0) mg/dL AST 49 H (10-42) IU/L ALT 40 (10-60) IU/L Alkaline Phosphatase 117 (42-121) IU/L B-Natriuretic Peptide 350 H (5-100) pg/mL Total Protein 5.7 L (6.7-8.2) g/dL Albumin 3.0 L (3.2-5.5) g/dL Globulin 2.7 (2.1-4.2) g/dL Albumin/Globulin Ratio 1.1 (1.0-2.2) ABX Reporting Has patient been on IV antibiotics over the past 48 hours?: Yes Assessment/Plan - Problem List (1) Sepsis Impression: Patient presented with generalized weakness and somnolence. On presentation the patient's lactic acid was elevated at 4.0 and he had acute renal failure with a creatinine that was elevated at 1.4. Although the patient did not have leukocytosis or fever he was tachypneic on presentation. The patient's presentation is quite concerning for sepsis. Patient's initial infectious workup was negative with a negative chest x-ray and a negative urine analysis. The patient was admitted with sepsis of unknown etiology. Blood cultures were obtained in the medical white and patient was started on broad-spectrum antibiotics. Plan: IV vancomycin and IV cefepime, Day #2 Blood cultures negative at 24 hours. Monitored closely for hypotension or worsening of symptoms, and so far none. 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 ?mass Stool cultures not done so far since no stool IV fluids Lactic acid down to 1.3 this am Qualifiers: Sepsis type: sepsis due to unspecified organism Qualified Code(s): A41.9 - Sepsis, unspecified organism (2) JANAE (acute kidney injury) Conclusion/Plan: The patient presented with acute kidney injury. This appears to be in the setting of sepsis and likely patient has prerenal azotemia. Patient will be given IV fluids and we will continue to monitor the patient's creatinine. We will avoid nephrotoxic agents. BUN 33, now 36 creatinine 1.4, now 1.2 (3) Altered mental status Conclusion/Plan: The patient presented with somnolence and has been lethargic throughout the day at home. This appears to be secondary to sepsis given the patient presented with a lactic acid of 4.0 acute kidney injury and generalized weakness. The source of the patient's sepsis is currently unknown. The patient's altered mental status appears to be improving with IV fluids as the patient is much more alert and oriented when seen on the medical white. Patient likely had metabolic encephalopathy which appears to be resolving with fluids and antibiotics. Consider getting an ABG if patient has further lethargy as patient is at risk of possible hypercapnia.So far no need for ABG Qualifiers: Altered mental status type: unspecified Qualified Code(s): R41.82 - Altered mental status, unspecified (4) Elevated LFTs Conclusion/Plan: The patient has elevated LFTs. The patient's bilirubin is 2.0 and AST is 78. The patient's alk phos is 158. The patient also has an elevated INR and low platelet count. This concerns me for possible hepatotoxicity. 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 However question of a mass. Plan: CT abdomen Recommended (5) MARISOL on CPAP Conclusion/Plan: Patient is a history of obstructive sleep apnea on CPAP. The patient will be continued on home CPAP once the patient's brings it into the hospital. If the patient continues to have lethargy we will consider an ABG to look for hypercapnia. (6) Diabetes Conclusion/Plan: Patient has a history of type 2 diabetes mellitus on insulin. The patient's blood glucose is elevated on presentation at 171.Glucose yesterday was 115, 147, 95, 144. Today he is 108, 182, 123 Plan: Patient is not on Lantus. He is on [facility] verify dose and that was started today Place patient on sliding scale insulin while hospitalized Check hemoglobin A1c Check blood glucose before meals at bedtime. 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 We will monitor the patient on telemetry. Patient's most recent echocardiogram is from 1 year ago therefore we will also get an echocardiogram while the patient is hospitalized.He has mild concentric left ventricular hypertrophy. Ejection fraction 60-65%. Mild right ventricular enlargement. Severe right atrial enlargement. Mild mitral regurgitation. Mildly abnormal right heart pressures. Qualifiers: Atrial fibrillation type: chronic Qualified Code(s): I48.2 - Chronic atrial fibrillation (9) Congestive heart failure (CHF) Conclusion/Plan: The patient is a history of diastolic heart failure. Currently the patient appears to have no symptoms of congestive heart failure and is stable. We will continue to manage his blood pressure and control his heart rate. We will get an echocardiogram.Which was also discussed in problem #8. Patient will be continued on metoprolol. We will hold valsartan and furosemide given the patient's acute renal failure. Qualifiers: Heart failure type: diastolic
[2018-08-23] MEDS: rOPINIRole 0.25 MG TABLET PO SCH (20:06)
[2018-08-23] MEDS: MONTELUKAST 10 MG TABLET PO SCH (20:06)
[2018-08-24] MEDS: SODIUM CHLORIDE FLUSH 0.9% 10 ML SYRINGE IVP SCH ×3 (02:03→18:19)
[2018-08-24] MEDS: CEFEPIME 2 GM in SODIUM CHLORIDE 0.9% MINIBAG 100 ML IV SCH ×3 (05:26→21:09)
[2018-08-24] MEDS: PANTOPRAZOLE 40 MG TABLET PO SCH (05:33)
[2018-08-24 05:47] LABS: BASOPHILS % (AUTO) 0.6 %; EOSINOPHILS # (AUTO) 0.4 10^3/uL (0.0-0.7); EOSINOPHILS % (AUTO) 5.8 %; LYMPHOCYTES % (AUTO) 14.6 %; MEAN CORPUSCULAR HEMOGLOBIN 32.4 pg (27.0-31.0); MEAN CORPUSCULAR HGB CONC 33.1 g/dL (32.0-36.0); MEAN CORPUSCULAR VOLUME 97.8 fL (80.0-94.0); MEAN PLATELET VOLUME 9.9 fL (7.4-11.4); MONOCYTES # (AUTO) 0.7 10^3/uL (0.0-1.0); MONOCYTES % (AUTO) 10.6 %; NEUTROPHILS # (AUTO) 4.5 10^3/uL (1.5-6.6); NEUTROPHILS % (AUTO) 68.4 %; PLT - PLATELET COUNT 98 10^3/uL (130-450); RED BLOOD COUNT 2.78 10^6/uL (4.70-6.10); RED CELL DISTRIBUTION WIDTH 14.3 % (12.0-15.0); WHITE BLOOD COUNT 6.6 x10^3/uL (4.8-10.8)
[2018-08-24 05:55] LABS: ALBUMIN 3.2 g/dL (3.2-5.5); ALKALINE PHOSPHATASE 142 IU/L (42-121); ALT ALANINE AMINOTRANSFERASE 47 IU/L (10-60); AST ASPARTATE AMINOTRANSFERASE 56 IU/L (10-42); BILIRUBIN,TOTAL 1.5 mg/dL (0.2-1.0); BUN - BLOOD UREA NITROGEN 33 mg/dL (6-20); CARBON DIOXIDE - CO2 24 mmol/L (21-32); CHLORIDE 103 mmol/L (101-111); CREATININE 1.1 mg/dL (0.6-1.2); GFR - MDRD 64 (>89); GLUCOSE 155 mg/dL (70-100); MAGNESIUM 2.1 mg/dL (1.7-2.8); PHOSPHORUS 2.4 mg/dL (2.5-4.6); SODIUM 134 mmol/L (135-145); TOTAL PROTEIN 6.4 g/dL (6.7-8.2)
[2018-08-24] MEDS: SODIUM CHLORIDE FLUSH 0.9% 10 ML SYRINGE IVP PRN ×2 (06:01→21:09)
[2018-08-24] MEDS: METOPROLOL TARTRATE 50 MG TABLET PO SCH ×2 (08:35→21:09)
[2018-08-24] MEDS: MAGNESIUM OXIDE 400 MG TABLET PO SCH (08:37)
[2018-08-24] MEDS: NYSTATIN POWDER 15 GM TOP SCH ×2 (08:37→21:09)
[2018-08-24] MEDS: POLYETHYLENE GLYCOL 3350 17 GM PACKET PO SCH (08:37)
[2018-08-24] MEDS: INSULIN ASPART 300 UNIT/3 ML PEN SUBQ SCH ×4 (08:37→21:10)
[2018-08-24] MEDS: ALBUTEROL NEB 2.5 MG/3 ML INH PRN ×2 (08:44→21:17)
[2018-08-24 16:41] LABS: VANCOMYCIN,TROUGH 19.1 ug/mL (10.0-20.0)
[2018-08-24 18:05] LABS: VBG PCO2 42.9 mmHg (41-51); VBG PH 7.366 (7.31-7.41)
[2018-08-24] MEDS: VANCOMYCIN INJ 1.75 GM in SODIUM CHLORIDE 0.9% 500 ML IV SCH (18:19)
[2018-08-24] MEDS: RIVAROXABAN 15 MG TABLET PO SCH (18:19)
[2018-08-24] MEDS: rOPINIRole 0.25 MG TABLET PO SCH (21:09)
[2018-08-24] MEDS: MONTELUKAST 10 MG TABLET PO SCH (21:09)
--- NOTE | 2018-08-24 22:01 | PROVIDER PROGRESS NOTE ---
Objective - Vital Signs/Intake & Output Vital Signs: Vital Signs x48h Temp Pulse Pulse Resp BP Pulse Ox 08/24/18 21:18 76 20 08/24/18 21:11 36.3 C L 85 18 118/71 96 08/24/18 16:38 36.9 C 84 24 111/62 98 Intake & Output: Intake & Output 08/21/18 08/22/18 08/23/18 08/24/18 23:59 23:59 23:59 23:59 Intake Total 3140.000 2226 1930 Output Total 730 550 350 Balance 2410.000 1676 1580 - Lab Results Fish Bones: 08/24/18 05:30 08/24/18 05:30 Other Labs: Lab Results x24hrs 08/24/18 08/24/18 08/24/18 Range/Units 20:46 17:49 16:38 WBC (4.8-10.8) x10^3/uL RBC (4.70-6.10) 10^6/uL Hgb (14.0-18.0) g/dL Hct (42.0-52.0) % MCV (80.0-94.0) fL MCH (27.0-31.0) pg MCHC (32.0-36.0) g/dL RDW (12.0-15.0) % Plt Count (130-450) 10^3/uL MPV (7.4-11.4) fL Neut # (Auto) (1.5-6.6) 10^3/uL Lymph # (Auto) (1.5-3.5) 10^3/uL Vilas # (Auto) (0.0-1.0) 10^3/uL Eos # (Auto) (0.0-0.7) 10^3/uL Baso # (Auto) (0.0-0.1) 10^3/uL Absolute Nucleated RBC x10^3/uL Nucleated RBC % /100WBC VBG pH 7.366 (7.31-7.41) VBG pCO2 42.9 (41-51) mmHg VBG pO2 32.0 (25-47) mmHg VBG HCO3 24.6 (23-28) mmol/L VBG Total CO2 26.0 (24-29) mmol/L VBG O2 Saturation 59.0 L (60-80) % VBG Base Excess -1.0 (-2 - +2) mmol/L Sodium (135-145) mmol/L Potassium (3.5-5.0) mmol/L Chloride (101-111) mmol/L Carbon Dioxide (21-32) mmol/L Anion Gap (6-13) BUN (6-20) mg/dL Creatinine (0.6-1.2) mg/dL Estimated GFR (MDRD) (>89) Glucose (70-100) mg/dL POC Whole Bld Glucose 183 H 153 H (70 - 100) mg/dL Calcium (8.5-10.3) mg/dL Ionized Calcium Phosphorus (2.5-4.6) mg/dL Magnesium (1.7-2.8) mg/dL Total Bilirubin (0.2-1.0) mg/dL AST (10-42) IU/L ALT (10-60) IU/L Alkaline Phosphatase (42-121) IU/L B-Natriuretic Peptide (5-100) pg/mL Total Protein (6.7-8.2) g/dL Albumin (3.2-5.5) g/dL Globulin (2.1-4.2) g/dL Albumin/Globulin Ratio (1.0-2.2) Stool Leukocytes, Qual (Negative) Last Dose Date Last Dose Time Vancomycin Trough (10.0-20.0) ug/mL 08/24/18 08/24/18 08/24/18 Range/Units 16:26 11:02 06:00 WBC (4.8-10.8) x10^3/uL RBC (4.70-6.10) 10^6/uL Hgb (14.0-18.0) g/dL Hct (42.0-52.0) % MCV (80.0-94.0) fL MCH (27.0-31.0) pg MCHC (32.0-36.0) g/dL RDW (12.0-15.0) % Plt Count (130-450) 10^3/uL MPV (7.4-11.4) fL Neut # (Auto) (1.5-6.6) 10^3/uL Lymph # (Auto) (1.5-3.5) 10^3/uL Vilas # (Auto) (0.0-1.0) 10^3/uL Eos # (Auto) (0.0-0.7) 10^3/uL Baso # (Auto) (0.0-0.1) 10^3/uL Absolute Nucleated RBC x10^3/uL Nucleated RBC % /100WBC VBG pH (7.31-7.41) VBG pCO2 (41-51) mmHg VBG pO2 (25-47) mmHg VBG HCO3 (23-28) mmol/L VBG Total CO2 (24-29) mmol/L VBG O2 Saturation (60-80) % VBG Base Excess (-2 - +2) mmol/L Sodium (135-145) mmol/L Potassium (3.5-5.0) mmol/L Chloride (101-111) mmol/L Carbon Dioxide (21-32) mmol/L Anion Gap (6-13) BUN (6-20) mg/dL Creatinine (0.6-1.2) mg/dL Estimated GFR (MDRD) (>89) Glucose (70-100) mg/dL POC Whole Bld Glucose 183 H (70 - 100) mg/dL Calcium (8.5-10.3) mg/dL Ionized Calcium Phosphorus (2.5-4.6) mg/dL Magnesium (1.7-2.8) mg/dL Total Bilirubin (0.2-1.0) mg/dL AST (10-42) IU/L ALT (10-60) IU/L Alkaline Phosphatase (42-121) IU/L B-Natriuretic Peptide (5-100) pg/mL Total Protein (6.7-8.2) g/dL Albumin (3.2-5.5) g/dL Globulin (2.1-4.2) g/dL Albumin/Globulin Ratio (1.0-2.2) Stool Leukocytes, Qual NEGATIVE (Negative) Last Dose Date 08/23/18 Last Dose Time 1835 Vancomycin Trough 19.1 (10.0-20.0) ug/mL 08/24/18 08/24/18 08/24/18 Range/Units 05:30 05:30 05:30 WBC 6.6 (4.8-10.8) x10^3/uL RBC 2.78 L (4.70-6.10) 10^6/uL Hgb 9.0 L (14.0-18.0) g/dL Hct 27.1 L (42.0-52.0) % MCV 97.8 H (80.0-94.0) fL MCH 32.4 H (27.0-31.0) pg MCHC 33.1 (32.0-36.0) g/dL RDW 14.3 (12.0-15.0) % Plt Count 98 L (130-450) 10^3/uL MPV 9.9 (7.4-11.4) fL Neut # (Auto) 4.5 (1.5-6.6) 10^3/uL Lymph # (Auto) 1.0 L (1.5-3.5) 10^3/uL Vilas # (Auto) 0.7 (0.0-1.0) 10^3/uL Eos # (Auto) 0.4 (0.0-0.7) 10^3/uL Baso # (Auto) 0.0 (0.0-0.1) 10^3/uL Absolute Nucleated RBC 0.00 x10^3/uL Nucleated RBC % 0.0 /100WBC VBG pH (7.31-7.41) VBG pCO2 (41-51) mmHg VBG pO2 (25-47) mmHg VBG HCO3 (23-28) mmol/L VBG Total CO2 (24-29) mmol/L VBG O2 Saturation (60-80) % VBG Base Excess (-2 - +2) mmol/L Sodium 134 L (135-145) mmol/L Potassium 4.0 (3.5-5.0) mmol/L Chloride 103 (101-111) mmol/L Carbon Dioxide 24 (21-32) mmol/L Anion Gap 7.0 (6-13) BUN 33 H (6-20) mg/dL Creatinine 1.1 (0.6-1.2) mg/dL Estimated GFR (MDRD) 64 L (>89) Glucose 155 H (70-100) mg/dL POC Whole Bld Glucose (70 - 100) mg/dL Calcium 9.0 (8.5-10.3) mg/dL Ionized Calcium NO Phosphorus 2.4 L (2.5-4.6) mg/dL Magnesium 2.1 (1.7-2.8) mg/dL Total Bilirubin 1.5 H (0.2-1.0) mg/dL AST 56 H (10-42) IU/L ALT 47 (10-60) IU/L Alkaline Phosphatase 142 H (42-121) IU/L B-Natriuretic Peptide 452 H (5-100) pg/mL Total Protein 6.4 L (6.7-8.2) g/dL Albumin 3.2 (3.2-5.5) g/dL Globulin 3.2 (2.1-4.2) g/dL Albumin/Globulin Ratio 1.0 (1.0-2.2) Stool Leukocytes, Qual (Negative) Last Dose Date Last Dose Time Vancomycin Trough (10.0-20.0) ug/mL 08/23/18 08/23/18 08/23/18 Range/Units 20:23 16:33 11:05 WBC (4.8-10.8) x10^3/uL RBC (4.70-6.10) 10^6/uL Hgb (14.0-18.0) g/dL Hct (42.0-52.0) % MCV (80.0-94.0) fL MCH (27.0-31.0) pg MCHC (32.0-36.0) g/dL RDW (12.0-15.0) % Plt Count (130-450) 10^3/uL MPV (7.4-11.4) fL Neut # (Auto) (1.5-6.6) 10^3/uL Lymph # (Auto) (1.5-3.5) 10^3/uL Vilas # (Auto) (0.0-1.0) 10^3/uL Eos # (Auto) (0.0-0.7) 10^3/uL Baso # (Auto) (0.0-0.1) 10^3/uL Absolute Nucleated RBC x10^3/uL Nucleated RBC % /100WBC VBG pH (7.31-7.41) VBG pCO2 (41-51) mmHg VBG pO2 (25-47) mmHg VBG HCO3 (23-28) mmol/L VBG Total CO2 (24-29) mmol/L VBG O2 Saturation (60-80) % VBG Base Excess (-2 - +2) mmol/L Sodium (135-145) mmol/L Potassium (3.5-5.0) mmol/L Chloride (101-111) mmol/L Carbon Dioxide (21-32) mmol/L Anion Gap (6-13) BUN (6-20) mg/dL Creatinine (0.6-1.2) mg/dL Estimated GFR (MDRD) (>89) Glucose (70-100) mg/dL POC Whole Bld Glucose 186 H 123 H 182 H (70 - 100) mg/dL Calcium (8.5-10.3) mg/dL Ionized Calcium Phosphorus (2.5-4.6) mg/dL Magnesium (1.7-2.8) mg/dL Total Bilirubin (0.2-1.0) mg/dL AST (10-42) IU/L ALT (10-60) IU/L Alkaline Phosphatase (42-121) IU/L B-Natriuretic Peptide (5-100) pg/mL Total Protein (6.7-8.2) g/dL Albumin (3.2-5.5) g/dL Globulin (2.1-4.2) g/dL Albumin/Globulin Ratio (1.0-2.2) Stool Leukocytes, Qual (Negative) Last Dose Date Last Dose Time Vancomycin Trough (10.0-20.0) ug/mL 08/23/18 08/22/18 08/22/18 Range/Units 07:22 20:47 17:21 WBC (4.8-10.8) x10^3/uL RBC (4.70-6.10) 10^6/uL Hgb (14.0-18.0) g/dL Hct (42.0-52.0) % MCV (80.0-94.0) fL MCH (27.0-31.0) pg MCHC (32.0-36.0) g/dL RDW (12.0-15.0) % Plt Count (130-450) 10^3/uL MPV (7.4-11.4) fL Neut # (Auto) (1.5-6.6) 10^3/uL Lymph # (Auto) (1.5-3.5) 10^3/uL Vilas # (Auto) (0.0-1.0) 10^3/uL Eos # (Auto) (0.0-0.7) 10^3/uL Baso # (Auto) (0.0-0.1) 10^3/uL Absolute Nucleated RBC x10^3/uL Nucleated RBC % /100WBC VBG pH (7.31-7.41) VBG pCO2 (41-51) mmHg VBG pO2 (25-47) mmHg VBG HCO3 (23-28) mmol/L VBG Total CO2 (24-29) mmol/L VBG O2 Saturation (60-80) % VBG Base Excess (-2 - +2) mmol/L Sodium (135-145) mmol/L Potassium (3.5-5.0) mmol/L Chloride (101-111) mmol/L Carbon Dioxide (21-32) mmol/L Anion Gap (6-13) BUN (6-20) mg/dL Creatinine (0.6-1.2) mg/dL Estimated GFR (MDRD) (>89) Glucose (70-100) mg/dL POC Whole Bld Glucose 108 H 144 H 95 (70 - 100) mg/dL Calcium (8.5-10.3) mg/dL Ionized Calcium Phosphorus (2.5-4.6) mg/dL Magnesium (1.7-2.8) mg/dL Total Bilirubin (0.2-1.0) mg/dL AST (10-42) IU/L ALT (10-60) IU/L Alkaline Phosphatase (42-121) IU/L B-Natriuretic Peptide (5-100) pg/mL Total Protein (6.7-8.2) g/dL Albumin (3.2-5.5) g/dL Globulin (2.1-4.2) g/dL Albumin/Globulin Ratio (1.0-2.2) Stool Leukocytes, Qual (Negative) Last Dose Date Last Dose Time Vancomycin Trough (10.0-20.0) ug/mL 08/22/18 08/22/18 Range/Units 11:15 07:29 WBC (4.8-10.8) x10^3/uL RBC (4.70-6.10) 10^6/uL Hgb (14.0-18.0) g/dL Hct (42.0-52.0) % MCV (80.0-94.0) fL MCH (27.0-31.0) pg MCHC (32.0-36.0) g/dL RDW (12.0-15.0) % Plt Count (130-450) 10^3/uL MPV (7.4-11.4) fL Neut # (Auto) (1.5-6.6) 10^3/uL Lymph # (Auto) (1.5-3.5) 10^3/uL Vilas # (Auto) (0.0-1.0) 10^3/uL Eos # (Auto) (0.0-0.7) 10^3/uL Baso # (Auto) (0.0-0.1) 10^3/uL Absolute Nucleated RBC x10^3/uL Nucleated RBC % /100WBC VBG pH (7.31-7.41) VBG pCO2 (41-51) mmHg VBG pO2 (25-47) mmHg VBG HCO3 (23-28) mmol/L VBG Total CO2 (24-29) mmol/L VBG O2 Saturation (60-80) % VBG Base Excess (-2 - +2) mmol/L Sodium (135-145) mmol/L Potassium (3.5-5.0) mmol/L Chloride (101-111) mmol/L Carbon Dioxide (21-32) mmol/L Anion Gap (6-13) BUN (6-20) mg/dL Creatinine (0.6-1.2) mg/dL Estimated GFR (MDRD) (>89) Glucose (70-100) mg/dL POC Whole Bld Glucose 147 H 115 H (70 - 100) mg/dL Calcium (8.5-10.3) mg/dL Ionized Calcium Phosphorus (2.5-4.6) mg/dL Magnesium (1.7-2.8) mg/dL Total Bilirubin (0.2-1.0) mg/dL AST (10-42) IU/L ALT (10-60) IU/L Alkaline Phosphatase (42-121) IU/L B-Natriuretic Peptide (5-100) pg/mL Total Protein (6.7-8.2) g/dL Albumin (3.2-5.5) g/dL Globulin (2.1-4.2) g/dL Albumin/Globulin Ratio (1.0-2.2) Stool Leukocytes, Qual (Negative) Last Dose Date Last Dose Time Vancomycin Trough (10.0-20.0) ug/mL Assessment/Plan - Problem List (1) Sepsis Impression: Patient presented with generalized weakness and somnolence. On presentation the patient's lactic acid was elevated at 4.0 and he had acute renal failure with a creatinine that was elevated at 1.4. Although the patient did not have leukocytosis or fever he was tachypneic on presentation. The patient's presentation is quite concerning for sepsis. Patient's initial infectious workup was negative with a negative chest x-ray and a negative urine analysis. The patient was admitted with sepsis of unknown etiology. Blood cultures were obtained in the medical white and patient was started on broad-spectrum antibiotics. Since being hydrated and started on antibiotics, most of his somnolence has improved. But he still has psychomotor retardation and is slow to respond when he speaks to you. Weakness is still present but improving as he works with physical therapy. I am not sure that this is really sepsis that we are seen. I think is a combination of dehydration, lactic acidosis, cirrhosis, and senescence. The fact that he also has obstructive sleep apnea and has been noncompliant with his facemask may have also resulted in some hypercapnia and worsening acidosis. In speaking to his , he has had a gradual downhill slide for the last 9 months. The fall in July really caused an even quicker deterioration. Plan: IV vancomycin and IV cefepime, Day #3 Blood cultures negative at 24 hours. Monitored closely for hypotension or worsening of symptoms, and so far none. 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 ?mass Stool cultures not done so far since no stool IV fluids Lactic acid was down to 1.3 10 am Qualifiers: Sepsis type: sepsis due to unspecified organism Qualified Code(s): A41.9 - Sepsis, unspecified organism (2) JANAE (acute kidney injury) Conclusion/Plan: The patient presented with acute kidney injury. This appears to be in the setting of sepsis and likely patient has prerenal azotemia. Patient will be given IV fluids and we will continue to monitor the patient's creatinine. We will avoid nephrotoxic agents. BUN 33> 36>33, creatinine 1.4> 1.2>1.1 (3) Altered mental status Conclusion/Plan: The patient presented with somnolence and has been lethargic throughout the day at home. But when carefully reviewing the 's history, she tells me that he is actually been getting worse over the last week or 2. Ever since he fell. But that he has been getting less sharp, and slower to respond to usual things for at least 9 months.Possibly secondary to sepsis given the patient presented with a lactic acid of 4.0 acute kidney injury and generalized weakness. The source of the patient's sepsis is still currently unknown. The patient's altered mental status appears to be improving with IV fluids as the patient is much more alert and oriented when seen on the medical white. Patient likely had metabolic encephalopathy from infection, dehydration, possbile hypercapnea which appears to be resolving with fluids and antibiotics. Consider getting an ABG if patient has further lethargy as patient is at risk of possible hypercapnia.So far no need for ABG will check ammonia level in am to see if cirrhosis is also contributing. He has been seen by physical therapy:Patient is making good progress in returning to baseline ambulation distance and level of independence. He reported his back has been aching more since sleeping in a hospital bed during his stay here as he has been sleeping in a recliner at home for 3 years. He has decreased endurance and is distractable by his low back pain during transfers posing a fall risk. Skilled PT recommended to cont to address ms strength and endurance for return to baseline. Recommend patient D/C to SNF or HHPT for further rehab, pending financial desires as patient is self pay. Qualifiers: Altered mental status type: unspecified Qualified Code(s): R41.82 - Altered mental status, unspecified (4) Elevated LFTs Conclusion/Plan: The patient has elevated LFTs. The patient's bilirubin is 2.0 and AST is 78. The patient's alk phos is 158. The patient also has an elevated INR and low platelet count. This concerns me for possible hepatotoxicity. 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 However question of a mass. Plan: CT abdomen Recommended and will be done in am. (5) MARISOL on CPAP Conclusion/Plan: Patient is a history of obstructive sleep apnea on CPAP. The patient will be continued on home CPAP once the patient's brings it into the hospital. If the patient continues to have lethargy we will consider an ABG to look for hypercapnia. Respiratory therapy feels he would do better on BiPAP and venous blood gas ordered. (6) Diabetes Conclusion/Plan: Patient has a history of type 2 diabetes mellitus on insulin. The patient's blood glucose is elevated on presentation at 171.Glucose today is 160, 183, 153 Plan: Patient is not on Lantus. He is on [facility] verified dose and that was started 08/23/18 Place patient on sliding scale insulin while hospitalized Check hemoglobin A1c Check blood glucose before meals at bedtime. Qualifiers: Diabetes mellitus type: type 2 Diabetes mellitus longterm insulin use: with lobsterman use Diabetes mellitus complication status: with hyperglycemia Qualified Code(s): E11.65 - Type 2 diabetes mellitus with hyperglycemia; Z79.4 - alf (current) use of insulin (8) Atrial fibrillation Conclusion/Plan: The patient has a history of chronic atrial fibrillation and is on Xarelto for anticoagulation as well as metoprolol for rate control. We will monitor the patient on telemetry. Patient's most recent echocardiogram is from 1 year ago therefore we will also get an echocardiogram while the patient is hospitalized.He has mild concentric left ventricular hypertrophy. Ejection fraction 60-65%. Mild right ventricular enlargement. Severe right atrial enlargement. Mild mitral regurgitation. Mildly abnormal right heart pressures. Qualifiers: Atrial fibrillation type: chronic Qualified Code(s): I48.2 - Chronic atrial fibrillation (9) Congestive heart failure (CHF) Conclusion/Plan: The patient is a history of diastolic heart failure. Currently the patient appears to have no symptoms of congestive heart failure and is stable. We will continue to manage his blood pressure and control his heart rate. We will get an echocardiogram.Which was also discussed in problem #8. Patient will be continued on metoprolol. We will hold valsartan and furosemide given the patient's acute renal failure. Qualifiers: Heart failure type: diastolic
[2018-08-25] MEDS: CEFEPIME 2 GM in SODIUM CHLORIDE 0.9% MINIBAG 100 ML IV SCH ×2 (05:36→12:18)
[2018-08-25] MEDS: SODIUM CHLORIDE FLUSH 0.9% 10 ML SYRINGE IVP SCH ×2 (05:37→12:19)
[2018-08-25 05:40] LABS: BASOPHILS # (AUTO) 0.1 10^3/uL (0.0-0.1); BASOPHILS % (AUTO) 1.3 %; EOSINOPHILS # (AUTO) 0.5 10^3/uL (0.0-0.7); EOSINOPHILS % (AUTO) 7.9 %; HGB - HEMOGLOBIN 8.6 g/dL (14.0-18.0); LYMPHOCYTES % (AUTO) 17.4 %; MEAN CORPUSCULAR HEMOGLOBIN 33.3 pg (27.0-31.0); MEAN CORPUSCULAR HGB CONC 34.6 g/dL (32.0-36.0); MEAN CORPUSCULAR VOLUME 96.4 fL (80.0-94.0); MEAN PLATELET VOLUME 9.7 fL (7.4-11.4); MONOCYTES # (AUTO) 0.7 10^3/uL (0.0-1.0); NEUTROPHILS # (AUTO) 3.8 10^3/uL (1.5-6.6); NEUTROPHILS % (AUTO) 62.4 %; PLT - PLATELET COUNT 106 10^3/uL (130-450); RED BLOOD COUNT 2.59 10^6/uL (4.70-6.10); RED CELL DISTRIBUTION WIDTH 14.2 % (12.0-15.0)
[2018-08-25 05:53] LABS: ALKALINE PHOSPHATASE 152 IU/L (42-121); ALT ALANINE AMINOTRANSFERASE 44 IU/L (10-60); AST ASPARTATE AMINOTRANSFERASE 48 IU/L (10-42); BILIRUBIN,TOTAL 2.1 mg/dL (0.2-1.0); BUN - BLOOD UREA NITROGEN 27 mg/dL (6-20); CARBON DIOXIDE - CO2 24 mmol/L (21-32); CHLORIDE 105 mmol/L (101-111); CREATININE 1.1 mg/dL (0.6-1.2); GFR - MDRD 64 (>89); GLUCOSE 146 mg/dL (70-100); PHOSPHORUS 2.5 mg/dL (2.5-4.6); SODIUM 136 mmol/L (135-145); TOTAL PROTEIN 6.1 g/dL (6.7-8.2)
[2018-08-25 07:08] LABS: % IRON SATURATION 22 % (20-50); IRON 77 ug/dL (45-182); MEAN RETIC VALUE 128.1; RED BLOOD COUNT 2.61 10^6/uL (4.70-6.10); TOTAL IRON BINDING CAPACITY 349 ug/dL (250-450); TRANSFERRIN 249 mg/dL (180-329)
[2018-08-25] MEDS ORDERED: IOPAMIDOL-300 100 ML VIAL ONE (07:31)
[2018-08-25] MEDS ORDERED: IOPAMIDOL-300 100 ML VIAL IVP ONE (08:16)
[2018-08-25] MEDS: MAGNESIUM OXIDE 400 MG TABLET PO SCH (09:28)
[2018-08-25] MEDS: PANTOPRAZOLE 40 MG TABLET PO SCH (09:29)
[2018-08-25] MEDS: METOPROLOL TARTRATE 50 MG TABLET PO SCH (09:29)
[2018-08-25] MEDS: INSULIN ASPART 300 UNIT/3 ML PEN SUBQ SCH ×2 (09:32→12:25)
[2018-08-25] MEDS: NYSTATIN POWDER 15 GM TOP SCH (09:33)
[2018-08-25] MEDS: POLYETHYLENE GLYCOL 3350 17 GM PACKET PO SCH (09:33)
--- NOTE | 2018-08-25 10:39 | CT Report ---
Reason: ABNORMAL US Procedure Date: 08/25/2018 Accession Number: [id number] / [id number] Procedure: CT - Abdomen W/ CPT Code: FULL RESULT: EXAM: CT ABDOMEN AND PELVIS EXAM DATE: 08/25/2018 08:00 AM. CLINICAL HISTORY: Concern for hepatic mass on ultrasound. COMPARISONS: Abdomen ultrasound 08/22/2018. PELVIS W/O 07/28/2018 5:11 AM. TECHNIQUE: Routine helical CT imaging was performed through the abdomen and pelvis. IV contrast: 100 cc [id number]. Enteric contrast: No. Reconstructions: Coronal and sagittal. In accordance with CT protocol optimization, one or more of the following dose reduction techniques were utilized for this exam: automated exposure control, adjustment of mA and/or KV based on patient size, or use of iterative reconstructive technique. FINDINGS: Lung Bases: Trace bilateral pleural effusions. Bibasilar atelectasis versus scarring. Moderate cardiomegaly. Liver: Cirrhosis. Ill-defined, irregular, hypodense lesion in segment VIII measuring approximately 4 x 2.5 cm (for example axial image 14). Gallbladder/Bile Ducts: Gallbladder wall thickening, likely secondary to underlying liver disease. Otherwise unremarkable. Spleen: Splenomegaly. No focal abnormality. Pancreas: Atrophic. Otherwise no significant abnormality. Adrenal Glands: Normal. Kidneys: No significant abnormality. Peritoneal Cavity/Bowel: No pneumoperitoneum. Small ascites. No bowel obstruction or abnormal stool burden. Periportal lymph node measuring 12 mm short axis (axial image 37) may be reactive; additional prominent periportal and peripancreatic lymph nodes with short axis diameters 8 mm or less. Diverticulosis without diverticulitis. Normal appendix. Pelvic Organs: Suboptimal evaluation secondary to streak artifact. No evidence of gross abnormality. Vasculature: Moderate aortic atherosclerosis without aneurysm. The portal vein is patent. No definite varices. Bones: Left hip prosthesis. No acute osseous abnormality or aggressive osseous lesion. Probable vertebral body hemangiomas at L1 and L2. Other: Apparent bowel-containing ventral hernia, though the anterior abdominal wall does not appear to be completely imaged. IMPRESSION: 1. Cirrhosis with ascites and splenomegaly, suggesting portal hypertension. 2. Ill-defined hypodense lesion in the dome of the liver. Neoplasm is not excluded and further evaluation with multiphase liver CT or MRI would be helpful, if clinically indicated. 3. Chronic and incidental findings as above. RADIA
--- NOTE | 2018-08-25 11:47 | Discharge Plan ---
"Discharge Plan for SNF / [facility] - Discharge Plan And Transition Orders Disposition: 03 SNF DC/Xfer Condition: Good Allergies and Adverse Reactions: Allergies Allergy/AdvReac Type Severity Reaction Status Date / Time oxycodone Allergy Unknown Verified 08/22/18 01:37 zolpidem [From Ambien] Allergy Unknown Verified 08/22/18 01:37 - SNF / INTERMEDIATE Transition Orders Admit to (Facility): [facility] Under the care of (Name): Dr. Lewis Olivera (PCP is Sachi Winchester) Discharge Diagnosis: 1. Metabolic encephalopathy from: #2, #3, #4 2. Obstructive sleep apnea with presumed hypercapnia, patient noncompliant with CPAP mask. May need BiPAP. 3. Hepatic encephalopathy. Ammonia 45. 4. Lactic acidosis from metformin 5. Alcoholic cirrhosis 6. Controlled type 2 diabetes mellitus, with complications, with long-term use of insulin 7. Chronic atrial fibrillation 8. Morbid obesity 9. Probable cor pulmonale. Echo August 22, 2018 with mild concentric left ventricular hypertrophy, EF 60-65% on left side, mild right ventricular enlargement, severe right atrial enlargement, RVSP at rest 43 mmHg. BNP 593. 10. Abnormal CT of liver. Patient will need follow-up MRI of liver in the outpatient setting. CEA and alpha-fetoprotein are pending at the time of discharge 11. Hypertension 12. Benign prostatic hypertrophy with urinary incontinence 13. Depression with anxiety 14. Rheumatoid arthritis 15. Chronic back pain Medicare Certification Statement: I certify that [facility] care is medically necessary on a continuing basis for any of the conditions for which she/he is receiving care during hospitalization. Notify PCP of admission and forward orders to primary provider for signature. Weight on admission and: Weekly Call PCP immediately if weight increases by: 2.2 kg Other Notification Orders: Call PCP immediately if patient develops dyspnea, chest pain/tightness or edema. House Bowel Program: Yes Additional Bowel Program Orders: If no BM after 2 days, nurse may give M.O.M. 30ml PO PRN and/or ducolax Supp 1 GA and/or TRACEY 250mg P.O., and/or senna 1-2 tabs PO. On day 3 nurse may give repeat above order until residents constipation is resolved. Annual Influenza Vaccine (between Jun 23 and January 20): Yes Two-step PPD per [facility] [phone] or approved exception documents: Yes Lab Tests or X-ray Orders: BMP, ammonia, BNP in 1 week Medication Orders: PLEASE REFER TO THE DISCHARGE MEDICATION LIST. 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 He loves his wine and his food. He has been failing for the last 9 months according to his significant other. It has been a subtle deterioration in mental status. He is definitely not as sharp as it used to be. It is not so much memory loss as slowing down. He then fell in July and is been a sharp downhill turn since then. He is supposed to be on CPAP for obstructive sleep apnea but has not been using it. For 2 weeks has been having intermittent diarrhea. Getting weaker and weaker. Increasing urgency and urinary frequency 20 times an hour. And then confusion and lethargy the day before. He is on metformin for diabetes. We feel that he has hypercapnia, lactic acidosis, hepatic encephalopathy. All of these are mild but in combination have called a gradually increasing encephalopathy, gradually decreasing endurance. He has been hydrated, metformin stopped, treated for possible infection that is most likely prostate if anything, and put on facemask at night. He is a strong candidate for BiPAP mask versus CPAP mask. CT the abdomen shows a nodular liver that needs an MRI of the liver for follow-up. He was started on lactulose the day of discharge because of an ammonia level of 45. Empirically we will continue a quinolone for the next week for possible low- grade prostatitis. Plan is for him to return to his own home. Long-term plan is for him to return to [facility]. Follow Up: Dr. Sachi Winchester after discharge. Insulin Orders - SNF Basal | Correction | Custom Orders: Diagnosis: Diabetes Initiate hypo and hyperglycemia protocols for BG <70 and BG >375. May check BG PRN for signs/symptoms of dysglycemia. Frequency of BG checks: [AC/Meal/HS] Basal Insulin: [] Lantus 100 units / ml inject subq as follows: [] [] Other: [Tresiba Flex pen 20 units SQ qpm, patient has own meds] Correction Insulin: - Select the type of insulin below [Choose: Novolog/Humalog]100 units /ml insulin inject subq per orders indicate below [] LOW DOSE [x] MODERATE DOSE [] MODERATE/HIGH DOSE [] HIGH DOSE GB UNITS GB UNITS GB UNITS GB UNITS 61-140 0 UNITS 61-140 0 UNITS 61-140 0 UNITS 61-140 0 UNITS 141-175 1 UNITS 141-175 1 UNITS 141-175 2 UNITS 141-175 3 UNITS 176-225 2 UNITS 176-225 3 UNITS 176-225 4 UNITS 176-225 5 UNITS 226-275 3 UNITS 226-275 5 UNITS 226-275 6 UNITS 226-275 7 UNITS 276-325 4 UNITS 276-325 7 UNITS 276-325 8 UNITS 276-325 9 UNITS 326-375 5 UNITS 326-375 9 UNITS 326-375 10 UNITS 326-375 11 UNITS >375 CONTACT MD >375 CONTACT MD >375 CONTACT MD >375 CONTACT MD Custom Dosing: [Choose: Novolog/Humalog] 100 units/ml Insulin inject subq as follows: GB Units 61-140 [] Units 141-175 [] Units 176-225 [] Units 226-275 [] Units 276-325 []Units 326-375 [] Units >375 Contact MD"
[2018-08-25 16:03] VITALS: BP 105/74
--- NOTE | 2018-08-25 20:20 | DISCHARGE SUMMARY ---
Physician: Luciana Patel MD DATE OF ADMISSION: 08/22/2018 DATE OF DISCHARGE: 08/25/2018 DISCHARGE DIAGNOSES: 1. Metabolic encephalopathy secondary to #2, 3, 4. 2. Obstructive sleep apnea with noncompliance of CPAP mask. 3. Hepatic encephalopathy. 4. Lactic acidosis from metformin. 5. Alcoholic cirrhosis. 6. Diet-controlled type 2 diabetes mellitus with complications with long-term use of insulin. 7. Chronic atrial fibrillation. 8. Morbid obesity. 9. Cor pulmonale 10. Abnormal CT of the liver. 11. Hypertension. 12. Benign prostatic hypertrophy with urinary incontinence. 13. Depression with anxiety. 14. Rheumatoid arthritis history. 15. Chronic back pain. 16. Acute kidney injury. 17. Normocytic anemia with thrombocytopenia. DISCHARGE MEDICATIONS: 1. Acetaminophen 500 mg every 6 hours as needed for fever, pain, headache. 2. Azelastine hydrochlorothiazide nasal spray 137 mcg 1 to 2 sprays each nostril b.i.d. 3. Citalopram 10 mg p.o. daily. 4. Fexofenadine 180 mg p.o. daily. 5. Glimepiride 1 mg p.o. daily, 2 mg tablet cut in half. 6. Singulair 10 mg p.o. daily. 7. Potassium chloride 10 mEq p.o. daily. 8. Xarelto 20 mg p.o. daily. 9. Mirapex 0.5 mg p.o. q.p.m. 10. Rosuvastatin 5 mg p.o. q. 48 hours on odd days. 11. Torsemide 40 mg p.o. daily. 12. Valsartan 320 mg p.o. daily. 13. Cipro 250 mg p.o. b.i.d., #20, 10 days. 14. Tresiba patch 20 units subcutaneous q.p.m. not to be used p.r.n. 15. Lactulose 10 grams p.o. b.i.d. before meals. 16. Magnesium oxide 400 mg p.o. daily. 17. Metoprolol tartrate 50 mg p.o. b.i.d. 18. Flomax 0.4 mg p.o. q.p.m. PRINCIPAL PROCEDURES: 1. Echocardiogram with mild concentric left ventricular hypertrophy. Left ventricular systolic function normal with an ejection fraction of 60-65%. Mild right ventricular enlargement. Severe right atrial enlargement. Mild mitral regurgitation. Mildly abnormal heart pressures with RVSP 43 mmHg. 2. Blood cultures no growth after 2 days. 3. Campylobacter antigen negative, Shiga toxin negative. 4. Head CT: No focal or acute intracranial abnormality. 5. Chest x-ray: Mild cardiomegaly and pulmonary vascular congestion, mild bibasilar atelectasis or infiltrate. 6. Abdominal ultrasound; heterogeneous, coarse hepatic echotexture with apparent surface nodularity, which may be secondary to cirrhosis or other hepatocellular disease. Further evaluation with CT or MRI recommended. Exam limited by patient's body habitus. 7. Abdomen CT with moderate cardiomegaly, cirrhosis with ill-defined irregular hypodense lesion in segment 8 measuring 4 x 2.5 cm. Gallbladder wall thickening, likely secondary to underlying liver disease. Splenomegaly. Atrophic pancreas. Moderate aortic atherosclerosis without aneurysm. Portal vein patent. 8. CEA level 3.8. 9. Alpha-fetoprotein level pending at the time of discharge. HOSPITAL COURSE: This is a abbi 82-year-old gentleman who has a past medical history significant for insulin-dependent diabetes mellitus, obesity, hypertension, obstructive sleep apnea on CPAP, chronic atrial fibrillation on Xarelto, asthma, congestive heart failure, who presented to the emergency room because of generalized weakness. In speaking to his , she did share with us (after being admitted) that he has been steadily deteriorating over the last several months. He just notices that he is "less sharp" that he usually is. For the last 2 weeks, he has been having intermittent diarrhea off and on. Two to three loose bowel movements a day. No fever or chills. He has been having abdominal cramping. He has a constant urge to urinate. His states that he got up 20 times in 1 hour and it was exhausting. His checked his use of his CPAP machine and it appears that he has only been on CPAP for a short time throughout the night yesterday. He got up to go to the bathroom, to sit on the toilet one more time, then he had a difficult time getting up from the toilet. He was finally able to get up, but then he collapsed to the floor because he was so weak. He denies hitting his head. He fell on his butt. He tried to pull himself up by using the toilet and the counters. He called out for his to help him. She arrived in the bathroom and tried to help him up but he was so weak that even with the help of his , he could not get up. She noticed that over the course of the day he appears more lethargic and confused. He denies chest pain, coughing, shortness of breath. No dysuria, no hematuria. He has been recently diagnosed with a urinary tract infection and had just completed antibiotic therapy. He has low back pain, but he has history of osteoarthritis and rheumatoid arthritis. He always has a little bit of back pain, but with the fall and yesterday, it has been hurting more. EMS arrived to find the patient hypotensive with a blood pressure of 80 systolic. They brought him to the emergency room and in the emergency room he was somnolent. Vital signs were stable, but he was slightly tachypneic and saturating well on room air. He did not have a fever. Routine lab work showed a lactic acid of 4 with an elevated creatinine of 1.4, up from his baseline of 0.9. He had mildly elevated LFTs with a total bilirubin of 2 and AST of 78 along with an alkaline phosphatase of 158. Urinalysis was negative. Chest x- ray had bibasilar atelectasis, but no infiltrate. CT of the head was negative. This was done because he was on Xarelto. Given the patient's generalized weakness, lethargy in conjunction with elevated lactic acid and acute kidney injury, the patient was brought into the hospital with admitting diagnosis of possible sepsis with end-organ damage. He was placed on empiric IV antibiotic therapy because of the thought of sepsis. Blood cultures were done and those were negative. Stool cultures were done and those were negative. Throughout his stay his white cell count remained normal, and he never had a fever. He responded nicely to the empiric IV antibiotic therapy and IV hydration. His sensorium gradually cleared, but he never went to baseline according to his . He always remained a little bit more lethargic and confused than usual. BUN started out at 33 and was 27 by discharge. Creatinine started out at 1.4 and came down to 1.1. In looking over his medication list, taking into account that he has been slowly deteriorating for several months, and no clear evidence of infection, it was felt that the patient had a combination of factors causing him to have metabolic encephalopathy. That he did not have sepsis after all. The first of which was noncompliance with his sleep mask. Respiratory therapy has evaluated him and feels that he is a much better candidate for a BiPAP mask as opposed to a CPAP mask. Venous blood gas shows a pH of 7.366, pCO2 of 42, pO2 32 with base excess -1. His primary care provider is Dr. Winchester. In this discharge summary we are asking Dr. Winchester to send him to the sleep lab to be evaluated for BiPAP as opposed to CPAP. The other possibility causing his metabolic encephalopathy is mild hepatic encephalopathy. Unfortunately, this gentleman had cirrhosis on ultrasound. Because of his abnormal liver enzymes ultrasound was done and showed nodularity in the cirrhotic liver. He is developing early hepatosplenomegaly and has thrombocytosis and anemia. CT scan was done because of the irregularity of the liver surface. It is still not conclusive of what this patient's anatomy is other than cirrhosis and there seems to be a possible discrete mass. MRI is not available on the weekend and I would ask Dr. Winchester to get an outpatient MRI of this patient's liver. At discharge his CEA level is normal. Alpha- fetoprotein level is pending. The final cause of his encephalopathy may lactic acidosis. Lactic acidosis is associated with infection, dehydration and medications. He is on metformin. This is a gentleman who was on antibiotics, developed diarrhea and in combination with metformin could have developed a lactic acidosis just from that alone. I do not recommend that metformin be continued in this gentleman, that his diabetic medications be adjusted instead. He is currently on Tresiba Flextouch. Instead of as needed he should most likely go on Tresiba nightly, continue the glimepiride, and dd sliding scale Humalog while he is under the care of the detention facility. For his mild ammonia level elevation of 44, I would suggest that he be on lactulose 10 grams p.o. b.i.d. before meals. An anemia panel was done on this gentleman. Iron is 77, TIBC 349, transferrin 249. Ferritin 80. B12 level is 221. Absolute retic count is 0.067. On the day of discharge, hemoglobin is 8.6, hematocrit 25, MCV 96, and platelets are 106. Chronic atrial fibrillation was present throughout his stay. Rate was controlled. Because of shortness of breath, cardiomegaly, echocardiogram was done and results are with an ejection fraction of 60-65%. Mild right ventricular enlargement, severe right atrial enlargement, and right ventricular systolic pressures mildly elevated at 43. I feel that he may have cor pulmonale from a combination of pulmonary hypertension from obstructive sleep apnea and morbid obesity. Because of his documented benign prostatic hypertrophy history, urgency, frequency, and having to get up to the bathroom 20 times, he may still have prostatitis with enlarged prostate. As such, he is discharged on Flomax and continue Cipro for 10 more days. He has slowly improved with his weakness. When he came into the hospital this gentleman had fallen down and could not get up and had to have help with EMS. noted a gradual deterioration in functional status over the last few months. On the day of discharge, he was evaluated one more time by physical therapy. He has been evaluated almost every day. His posture is slowly improving with a good use a front-wheeled walker. He still needs quite a bit of help from lying to sitting to standing, but once up mobility is good. His lower back really does hurt him. He is felt to be a good candidate for continued rehab. As [facility]. Because of his multiple metabolic problems, lactic acidosis, and new use of Tresiba on a fixed daily dose, the patient is also going to be sent on h.s. and a.c. sliding scale continued on glimepiride and Tresiba. CBC, CMP, and followup for the use of lactulose with an ammonia level should be done in the next few days. DISCHARGE EXAMINATION: Shows a morbidly obese, exceedingly charming, pleasant male in no acute distress. He is alert to person, place, vague on time at times. When he speaks to him there appears to be a slight psychomotor slowing that is not his baseline according to his significant other. Temperature is 36.5, pulse is 88, blood pressure is 110/66, respirations 18, and he is 96% on room air. Diminished breath sounds at the bases, but clear, without crackles, rhonchi or wheezing. Barrel chest with a regular rate and rhythm. He is slow enough that I do not hear the atrial fibrillation irregularity. Abdomen is obese, soft, nontender. Normal bowel sounds. No masses. Extremities have only minimal trace edema around his ankles. Last bowel movement was today. He has frequency and urgency. Generalized weakness. He is hard of hearing. Complains of blurred vision at times. Greater than 30 minutes was spent coordinating discharge. From [facility] it is planned for him to return to home. Follow up with Dr. Winchester. TD: 08/25/2018 18:48 [facility]
== END 2018-08-25 16:35 | DRG 71 ==
LOC: EDUNIT# → EDBD → ED 01:06 → MS2 03:30
PROVIDERS: ADMIT Internal Medicine; ATTEND Specialist
DX: R41.82 Altered mental status, unspecified (principal); R32 Unspecified urinary incontinence; G93.41 Metabolic encephalopathy; E87.2 Acidosis; Z68.41 Body mass index [BMI] 40.0-44.9, adult; N17.9 Acute kidney failure, unspecified; K52.1 Toxic gastroenteritis and colitis; I50.30 Unspecified diastolic (congestive) heart failure; K70.40 Alcoholic hepatic failure without coma; F10.10 Alcohol abuse, uncomplicated; G47.33 Obstructive sleep apnea (adult) (pediatric); Z91.19 Patient's noncompliance with other medical treatment and regimen; K70.31 Alcoholic cirrhosis of liver with ascites; N41.9 Inflammatory disease of prostate, unspecified; R53.1 Weakness; R06.89 Other abnormalities of breathing; T38.3X5A Adverse effect of insulin and oral hypoglycemic [antidiabetic] drugs, initial encounter; I48.2 Chronic atrial fibrillation; E66.01 Morbid (severe) obesity due to excess calories; I27.81 Cor pulmonale (chronic); I11.0 Hypertensive heart disease with heart failure; E11.65 Type 2 diabetes mellitus with hyperglycemia; R93.2 Abnormal findings on diagnostic imaging of liver and biliary tract; N40.1 Benign prostatic hyperplasia with lower urinary tract symptoms; N39.498 Other specified urinary incontinence; R35.0 Frequency of micturition; R39.15 Urgency of urination; F41.8 Other specified anxiety disorders; M06.9 Rheumatoid arthritis, unspecified; G89.29 Other chronic pain; M54.9 Dorsalgia, unspecified; D64.9 Anemia, unspecified; D69.6 Thrombocytopenia, unspecified; J45.909 Unspecified asthma, uncomplicated; M19.90 Unspecified osteoarthritis, unspecified site; R16.2 Hepatomegaly with splenomegaly, not elsewhere classified; Z96.649 Presence of unspecified artificial hip joint; Z79.01 Long term (current) use of anticoagulants; Z79.4 Long term (current) use of insulin; Z87.440 Personal history of urinary (tract) infections; Z91.81 History of falling
CPT/HCPCS: 36415; 70450; 71046; 74160; 76700; 80053; 80202; 81001; 81003; 82105; 82140; 82378; 82607; 82728; 82803; 83036; 83540; 83605; 83615; 83630; 83690; 83735; 83880; 84100; 84466; 84484; 85025; 85044; 85610; 85730; 87040; 87045; 87046; 87086; 93005; 93306; 94640; 99283; 99285

== ENCOUNTER 2018-09-03 08:00 | Outpatient (CLI) | payer MEDICARE, OTHER ==
[2018-09-03 11:57] LABS: CALCIUM 8.8 mg/dL (8.5-10.3); CREATININE 1.7 mg/dL (0.6-1.2)
== END 2018-09-03 08:01 | disposition home or self-care (01) ==
LOC: LAB.R 08:00
PROVIDERS: ATTEND Internal Medicine
DX: G93.41 Metabolic encephalopathy (principal); I50.9 Heart failure, unspecified
CPT/HCPCS: 80048; 82140; 83880

== ENCOUNTER 2018-09-10 20:04 | Outpatient (CLI) | payer MEDICARE, OTHER ==
--- NOTE | 2018-09-10 22:36 | Ultrasound Report ---
Reason: ABDOMINAL PAIN, BLOATING, SWELLIN Procedure Date: 09/10/2018 Accession Number: [id number] / [id number] Procedure: US - Abdomen Complete CPT Code: FULL RESULT: EXAM: ABDOMEN ULTRASOUND EXAM DATE: 09/10/2018 09:11 PM. CLINICAL HISTORY: ABDOMINAL PAIN, BLOATING, SWELLIN. COMPARISON: ABDOMEN COMPLETE 08/22/2018 4:35 PM ABDOMEN W/ 08/25/2018 7:59 AM. TECHNIQUE: Real-time scanning was performed with static images obtained. FINDINGS: Liver: Heterogeneous and coarse, unchanged. Lesion in the left lobe is unchanged at 3.5 cm. The liver measures 19 cm. Main portal vein flow: Not visualized, suggestive of interval portal vein thrombosis. Gallbladder: Normal. No stones, wall thickening, or sonographic Holt's sign. Biliary System: Not visualized, secondary to bowel gas. Pancreas: Not visualized, secondary to bowel gas. Kidneys: Right: 12.5 cm longitudinally. Normal. No contour-deforming mass, stones, or hydronephrosis. Left: 1.4 cm longitudinally. Normal. No contour-deforming mass, stones, or hydronephrosis. Spleen: 15.1 x 12.5 x 5.4 cm. Enlarged. No focal mass. Aorta and Inferior Vena Cava: Not visualized, secondary to bowel gas. Other: Small to moderate volume of ascites. IMPRESSION: Stable heterogeneous appearance of the liver, with a 3.5 cm nodule in the left lobe, unchanged. No identifiable flow in the portal vein on today's examination, suggestive of interval portal vein thrombosis. Ascites. Critical result: Results called to Dr. Winchester on 09/10/2018 at 10:35 PM. [facility]
--- NOTE | 2018-09-11 05:57 | XRAY Report ---
Reason: Abdominal pain, Bloating Procedure Date: 09/10/2018 Accession Number: [id number] / [id number] Procedure: XR - Abdomen 1 View X-Ray CPT Code: 77225 FULL RESULT: IMPRESSION: No evidence of bowel obstruction or perforation. Results called to Dr. Winchester on 09/10/2018 at 10:35 PM. RADIA
== END 2018-09-10 20:05 | disposition home or self-care (01) ==
LOC: DI 20:04
PROVIDERS: ATTEND Internal Medicine
DX: R10.9 Unspecified abdominal pain (principal); R14.0 Abdominal distension (gaseous); R16.0 Hepatomegaly, not elsewhere classified
CPT/HCPCS: 74018; 76700

== ENCOUNTER 2018-09-10 22:50 | Emergency (ER) | payer MEDICARE, OTHER ==
[2018-09-10 23:20] LABS: BILIRUBIN,URINE NEGATIVE (NEGATIVE); GLUCOSE, URINE (UA) NEGATIVE (NEGATIVE); KETONES,URINE (UA) NEGATIVE (NEGATIVE); LEUKOCYTE ESTERASE, URINE NEGATIVE (NEGATIVE); NITRITE,URINE NEGATIVE (NEGATIVE); OCCULT BLOOD,URINE NEGATIVE (NEGATIVE); PROTEIN,URINE NEGATIVE (NEGATIVE); UROBILINOGEN,URINE 0.2 (NORMAL) E.U./dL (NORMAL)
[2018-09-10 23:24] LABS: CLARITY,URINE CLEAR (CLEAR)
[2018-09-11 00:14] LABS: BASOPHILS % (AUTO) 0.9 %; EOSINOPHILS # (AUTO) 0.3 10^3/uL (0.0-0.7); EOSINOPHILS % (AUTO) 5.2 %; LYMPHOCYTES # (AUTO) 1.1 10^3/uL (1.5-3.5); LYMPHOCYTES % (AUTO) 21.7 %; MEAN CORPUSCULAR HEMOGLOBIN 31.8 pg (27.0-31.0); MEAN CORPUSCULAR HGB CONC 32.5 g/dL (32.0-36.0); MEAN CORPUSCULAR VOLUME 97.9 fL (80.0-94.0); MEAN PLATELET VOLUME 9.3 fL (7.4-11.4); MONOCYTES # (AUTO) 0.4 10^3/uL (0.0-1.0); MONOCYTES % (AUTO) 8.6 %; NEUTROPHILS # (AUTO) 3.1 10^3/uL (1.5-6.6); NEUTROPHILS % (AUTO) 63.6 %; PLT - PLATELET COUNT 149 10^3/uL (130-450); RED BLOOD COUNT 3.15 10^6/uL (4.70-6.10); RED CELL DISTRIBUTION WIDTH 14.7 % (12.0-15.0); WHITE BLOOD COUNT 4.8 x10^3/uL (4.8-10.8)
[2018-09-11 00:25] LABS: ALBUMIN 3.4 g/dL (3.2-5.5); ALBUMIN/GLOBULIN RATIO 0.9 (1.0-2.2); BILIRUBIN,TOTAL 1.4 mg/dL (0.2-1.0); CALCIUM 9.7 mg/dL (8.5-10.3); CREATININE 1.4 mg/dL (0.6-1.2); TOTAL PROTEIN 7.3 g/dL (6.7-8.2)
[2018-09-11 00:33] LABS: INR 1.7 (0.8-1.2); PT - PROTHROMBIN TIME 18.8 secs (9.9-12.6)
[2018-09-11] MEDS ORDERED: IOPAMIDOL-300 100 ML VIAL ONE ×2 (00:34→00:48)
[2018-09-11] MEDS ORDERED: IOPAMIDOL-300 100 ML VIAL IVP ONE (01:20)
--- NOTE | 2018-09-11 01:34 | CT Report ---
Reason: abd pain, swelling Procedure Date: 09/11/2018 Accession Number: [id number] / [id number] Procedure: CT - Abdomen/Pelvis W/ CPT Code: FULL RESULT: EXAM: CT ABDOMEN AND PELVIS EXAM DATE: 09/11/2018 01:19 AM. CLINICAL HISTORY: Abd pain, swelling. COMPARISONS: ABDOMEN W/ 08/25/2018 7:59 AM. TECHNIQUE: Routine helical CT imaging was performed through the abdomen and pelvis. IV contrast: ISOVUE 300 100mL. Enteric contrast: No. Reconstructions: Coronal and sagittal. In accordance with CT protocol optimization, one or more of the following dose reduction techniques were utilized for this exam: automated exposure control, adjustment of mA and/or KV based on patient size, or use of iterative reconstructive technique. FINDINGS: Lung Bases: Mild atelectasis. Liver: The liver is cirrhotic, with a nodular contour and caudate hypertrophy. There is thrombus in the right portal vein, with occlusion of branch vessels in the anterior portion. The main portal vein and left portal vein demonstrate normal enhancement. Gallbladder/Bile Ducts: Unremarkable. Spleen: Enlarged, measuring 17 cm. No focal lesion. Pancreas: Normal. Adrenal Glands: Normal. Kidneys: Normal. No masses or hydronephrosis. Peritoneal Cavity/Bowel: No evidence of bowel obstruction. Ascites appears similar to previous. No free air. Pelvic Organs: Normal. The bladder and visualized pelvic organs are within normal limits. Vasculature: No aneurysms or other significant abnormality. Bones: Degenerative changes. Previous left hip replacement. Other: None. 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 Cirrhotic liver. Stable ascites. [facility]
--- NOTE | 2018-09-11 01:44 | ED Physician Documentation ---
PD HPI ABD PAIN - Stated complaint Stated Complaint: DR VALLADARES/HANNAH PAIN - Chief complaint Chief Complaint: Abd Pain - History obtained from History obtained from: Patient, Family - History of Present Illness Timing - onset: How many days ago (3-4) Timing - duration: Days (3-4) Timing - details: Gradual onset Pain level max: 6 Quality: Aching, Pain Location: All over / everywhere Radiation: Other (non-radiating) Improved by: Laying still Worsened by: Moving Associated symptoms: Nausea, Vomiting (once), Diarrhea (lactulose). No: Fever Similar symptoms before: Diagnosis (ascites) Recently seen: Admitted (for sepsis) Review of Systems Ten Systems: 10 systems reviewed and negative Constitutional: denies: Fever, Chills Ears: denies: Ear pain Nose: denies: Rhinorrhea / runny nose, Congestion Throat: denies: Sore throat Respiratory: denies: Cough GI: denies: Nausea, Vomiting, Diarrhea Skin: denies: Rash Musculoskeletal: denies: Neck pain, Back pain Neurologic: denies: Focal weakness, Numbness PD PAST MEDICAL HISTORY - Past Medical History Past Medical History: Yes Cardiovascular: Congestive heart failure, Hypertension Respiratory: Asthma, Shortness of breath, Sleep apnea, CPAP use Neuro: None Endocrine/Autoimmune: Type 2 diabetes GI: Ulcers : Benign prostate hypertrophy, Incontinence HEENT: None Psych: Depression, Anxiety Musculoskeletal: Osteoarthritis, Rheumatoid arthritis, Chronic back pain Derm: None - Past Surgical History Past Surgical History: Yes General: Appendectomy, Hiatal hernia repair Ortho: Hip replacement - Present Medications Home Medications: Ambulatory Orders Medication Instructions Recorded Confirmed Azelastine HCl 1 - 2 spray NS BID 05/02/14 08/22/18 Glimepiride 1 mg PO DAILY 05/02/14 08/22/18 Montelukast Sodium [Singulair] 10 mg PO DAILY 05/02/14 08/22/18 Rivaroxaban [Xarelto] 20 mg PO DAILY 08/17/17 08/22/18 Valsartan 320 mg PO DAILY 08/17/17 08/22/18 Acetaminophen 1,000 mg PO DAILY PRN 08/18/17 08/22/18 Citalopram Hydrobromide 10 mg PO DAILY 05/09/18 08/22/18 [Citalopram HBr] Torsemide 40 mg PO DAILY 05/09/18 08/22/18 Fexofenadine HCl 180 - 360 mg PO QPM 08/22/18 08/22/18 Potassium Chloride 10 meq PO DAILY 08/22/18 08/22/18 Ropinirole HCl 0.5 mg PO QPM 08/22/18 08/22/18 Rosuvastatin Calcium 5 mg PO Q48H 08/22/18 08/22/18 Ciprofloxacin HCl [Cipro] 250 mg PO BID #20 tablet 08/25/18 Insulin Degludec [Tresiba 20 unit SUBQ QPM PRN #0 08/25/18 08/22/18 Flextouch U-100] Lactulose 10 gm PO BIDAC #1 bottle 08/25/18 Magnesium Oxide [Mag Ox] 400 mg PO DAILYWM tablet 08/25/18 Metoprolol Tartrate 50 mg PO BID #0 08/25/18 08/22/18 Tamsulosin HCl [Flomax] 0.4 mg PO QPM #1 cap.er.24h 08/25/18 Hyoscyamine Sulfate [Levsin-Sl] 0.125 mg SL Q6HR PRN #14 tab.subl 09/11/18 - Allergies Allergies/Adverse Reactions: Allergies Allergy/AdvReac Type Severity Reaction Status Date / Time oxycodone Allergy Unknown Verified 09/10/18 23:11 zolpidem [From Ambien] Allergy Unknown Verified 09/10/18 23:11 - Social History Does the pt smoke?: No Smoking Status: Never smoker Does the pt drink ETOH?: Yes Does the pt have substance abuse?: No - Immunizations Immunizations are current?: Yes - POLST Patient has POLST: Yes POLST Status: Full Code PD ED PE NORMAL - Vitals Vital signs reviewed: Yes - General General: Alert and oriented X 3, No acute distress - HEENT HEENT: Moist mucous membranes - Neck Neck: Supple, no meningeal sign - Cardiac Cardiac: RRR - Respiratory Respiratory: No respiratory distress, Clear bilaterally - Abdomen Abdomen: Soft, Non tender, Other (moderate distention) - Back Back: No spinal TTP - Derm Derm: Warm and dry - Extremities Extremities: No tenderness to palpate, Other (1+ BLE edema) - Neuro Neuro: Alert and oriented X 3 Results - Vitals Vitals: Vital Signs - 24 hr 09/10/18 09/11/18 23:09 01:55 Temperature 37.1 C Heart Rate 96 108 H Respiratory 17 16 Rate Blood Pressure 146/87 H 112/69 O2 Saturation 95 98 Oxygen O2 Source Room air - Labs Labs: Laboratory Tests 09/10/18 09/11/18 09/11/18 23:05 00:05 00:05 WBC 4.8 RBC 3.15 L Hgb 10.0 L Hct 30.8 L MCV 97.9 H MCH 31.8 H MCHC 32.5 RDW 14.7 Plt Count 149 MPV 9.3 Neut # (Auto) 3.1 Lymph # (Auto) 1.1 L [place] # (Auto) 0.4 Eos # (Auto) 0.3 Baso # (Auto) 0.0 Absolute Nucleated RBC 0.00 Nucleated RBC % 0.0 PT INR APTT Sodium 137 Potassium 4.2 Chloride 98 L Carbon Dioxide 29 Anion Gap 10.0 BUN 40 H Creatinine 1.4 H Estimated GFR (MDRD) 49 L Glucose 105 H Calcium 9.7 Total Bilirubin 1.4 H AST 84 H ALT 58 Alkaline Phosphatase 209 H Ammonia Total Protein 7.3 Albumin 3.4 Globulin 3.9 Albumin/Globulin Ratio 0.9 L Lipase 48 Urine Color YELLOW Urine Clarity CLEAR Urine pH 6.0 Ur Specific [place] 1.010 Urine Protein NEGATIVE Urine Glucose (UA) NEGATIVE Urine Ketones NEGATIVE Urine Occult Blood NEGATIVE Urine Nitrite NEGATIVE Urine Bilirubin NEGATIVE Urine Urobilinogen 0.2 (NORMAL) Ur Leukocyte Esterase NEGATIVE Ur Microscopic Review NOT INDICATED Urine Culture Comments NOT INDICATED 09/11/18 09/11/18 00:05 00:20 WBC RBC Hgb Hct MCV MCH MCHC RDW Plt Count MPV Neut # (Auto) Lymph # (Auto) [place] # (Auto) Eos # (Auto) Baso # (Auto) Absolute Nucleated RBC Nucleated RBC % PT 18.8 H INR 1.7 H APTT 33.8 H Sodium Potassium Chloride Carbon Dioxide Anion Gap BUN Creatinine Estimated GFR (MDRD) Glucose Calcium Total Bilirubin AST ALT Alkaline Phosphatase Ammonia 24.6 Total Protein Albumin Globulin Albumin/Globulin Ratio Lipase Urine Color Urine Clarity Urine pH Ur Specific [place] Urine Protein Urine Glucose (UA) Urine Ketones Urine Occult Blood Urine Nitrite Urine Bilirubin Urine Urobilinogen Ur Leukocyte Esterase Ur Microscopic Review Urine Culture Comments - Rads (name of study) CT abd.pelvis Radiology: Prelim report reviewed, EMP read contemporaneously, See rad report (New filling defect in the right portal vein, with occlusion of the anterior branches. Cirrhotic liver. Stable ascites. ) PD MEDICAL DECISION MAKING - ED course Complexity details: reviewed results, re-evaluated patient, considered differential, d/w patient, d/w family, d/w revenue cycle consultant ED course: Patient is an 82-year-old male with abdominal pain over the past few days, mainly at night. No pain in the emergency department upon serial exams. CT abdomen pelvis reveals a new filling defect in the right portal vein. Discussed the case with Dr. Powers, [facility] gastroenterology on-call who recommends continuing Xarelto and follow-up in the office. Patient is well- appearing, nontoxic. Afebrile. No hypoxia. No respiratory distress. Patient and family counseled regarding signs and symptoms for which I believe and urgent re-evaluation would be necessary. Patient with good understanding of and agreement to plan and is comfortable going home at this time This document was made in part using voice recognition software. While efforts are made to proofread this document, sound alike and grammatical errors may occur. Departure - Departure Disposition: 01 Home, Self Care Clinical Impression: Portal vein thrombosis Abdominal pain Qualifiers: Abdominal location: generalized Qualified Code(s): R10.84 - Generalized abdominal pain Ascites Qualifiers: Ascites type: other type Qualified Code(s): R18.8 - Other ascites Liver cirrhosis Qualifiers: Hepatic cirrhosis type: unspecified hepatic cirrhosis Ascites presence: with ascites Qualified Code(s): K74.60 - Unspecified cirrhosis of liver Condition: Good Instructions: ED Cirrhosis Liver Follow-Up: [facility] [Provider Group] Sachi Winchester MD [Primary Care Provider] - Within 1 week Prescriptions: Hyoscyamine Sulfate [Levsin-Sl] 0.125 mg SL Q6HR PRN #14 tab.subl PRN Reason: Abdominal Pain Comments: Follow-up with your doctor for further evaluation and care. You should be referred to a GI specialist. I spoke with Dr. Gio ortiz from [facility] gastroenterology. He recommended to stay on her anticoagulation. Return if you worsen
[2018-09-11] MEDS ORDERED: SODIUM CHLORIDE 0.9% 500 ML IV ONE (01:45)
[2018-09-11 03:28] VITALS: BP 112/71
== END 2018-09-11 03:10 | disposition home or self-care (01) ==
LOC: ED 22:50
DX: I81 Portal vein thrombosis (principal); R10.84 Generalized abdominal pain; R18.8 Other ascites; K74.60 Unspecified cirrhosis of liver; I10 Essential (primary) hypertension; E11.9 Type 2 diabetes mellitus without complications; Z79.4 Long term (current) use of insulin; Z79.01 Long term (current) use of anticoagulants; R10.9 Unspecified abdominal pain; R14.0 Abdominal distension (gaseous); R16.0 Hepatomegaly, not elsewhere classified
CPT/HCPCS: 36415; 74018; 74177; 76700; 80053; 81003; 82140; 83690; 85025; 85610; 85730; 96360; 99283; 99284; Q9967; 81001; 87086

== ENCOUNTER 2018-09-14 08:31 | Emergency (ER) | payer MEDICARE, OTHER ==
[2018-09-14 09:35] LABS: BASOPHILS # (AUTO) 0.1 10^3/uL (0.0-0.1); BASOPHILS % (AUTO) 0.8 %; EOSINOPHILS # (AUTO) 0.1 10^3/uL (0.0-0.7); EOSINOPHILS % (AUTO) 1.7 %; HGB - HEMOGLOBIN 9.2 g/dL (14.0-18.0); LYMPHOCYTES # (AUTO) 0.7 10^3/uL (1.5-3.5); LYMPHOCYTES % (AUTO) 9.9 %; MEAN CORPUSCULAR HEMOGLOBIN 32.2 pg (27.0-31.0); MEAN CORPUSCULAR HGB CONC 33.7 g/dL (32.0-36.0); MEAN CORPUSCULAR VOLUME 95.4 fL (80.0-94.0); MEAN PLATELET VOLUME 9.9 fL (7.4-11.4); MONOCYTES # (AUTO) 0.5 10^3/uL (0.0-1.0); MONOCYTES % (AUTO) 7.9 %; NEUTROPHILS # (AUTO) 5.4 10^3/uL (1.5-6.6); NEUTROPHILS % (AUTO) 79.7 %; PLT - PLATELET COUNT 130 10^3/uL (130-450); RED BLOOD COUNT 2.84 10^6/uL (4.70-6.10); RED CELL DISTRIBUTION WIDTH 14.5 % (12.0-15.0); WHITE BLOOD COUNT 6.8 x10^3/uL (4.8-10.8)
[2018-09-14 09:42] LABS: INR 1.9 (0.8-1.2); PT - PROTHROMBIN TIME 20.8 secs (9.9-12.6)
[2018-09-14 09:54] LABS: ALBUMIN 3.3 g/dL (3.2-5.5); ALBUMIN/GLOBULIN RATIO 1.1 (1.0-2.2); BILIRUBIN,TOTAL 1.5 mg/dL (0.2-1.0); CALCIUM 8.9 mg/dL (8.5-10.3); CREATININE 4.3 mg/dL (0.6-1.2); TOTAL PROTEIN 6.3 g/dL (6.7-8.2)
[2018-09-14 09:54] LABS: BILIRUBIN,URINE NEGATIVE (NEGATIVE); GLUCOSE, URINE (UA) NEGATIVE (NEGATIVE); KETONES,URINE (UA) NEGATIVE (NEGATIVE); LEUKOCYTE ESTERASE, URINE NEGATIVE (NEGATIVE); NITRITE,URINE NEGATIVE (NEGATIVE); OCCULT BLOOD,URINE NEGATIVE (NEGATIVE); PH,URINE 5.5 PH (5.0-7.5); PROTEIN,URINE NEGATIVE (NEGATIVE); UROBILINOGEN,URINE 0.2 (NORMAL) E.U./dL (NORMAL)
[2018-09-14 09:57] LABS: CLARITY,URINE CLEAR (CLEAR)
[2018-09-14] MEDS ORDERED: cefTRIAXone 1 GM in SODIUM CHLORIDE 0.9% MINIBAG 100 ML IV STA (11:06)
[2018-09-14] MEDS ORDERED: ALBUMIN 25% 12.5 GM/50 ML VIAL IV STA (11:06)
--- NOTE | 2018-09-14 11:08 | ED Physician Documentation ---
History of Present Illness - Stated complaint Stated Complaint: SOA/CONFUSION/UNEXPLAINED WEIGHT GAIN/ - Chief complaint Chief Complaint: Resp - Additonal information Additional information: The patient is an 82-year-old male who presents with confusion and shortness of breath. History is obtained mostly from his . 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 Further past medical history is significant for insulin-dependent diabetes, sleep apnea, and chronic atrial fibrillation. He was seen here 3 days ago, and a CT scan of his abdomen revealed portal vein thrombosis. He has been on Xarelto, which was initially prescribed for chronic atrial fibrillation. The patient's has noticed increased weight gain of 11-12 pounds over the past 3 days. This morning the patient seemed confused, exemplified by thinking there was someone in the house who was not actually there. He has demonstrated shortness of breath with short walks across the room. There is no recent history of fever, vomiting, and he denies headache, abdominal pain, or chest pain. Review of Systems Constitutional: reports: Fatigue. denies: Fever Ears: denies: Tinnitus/ringing Nose: denies: Congestion Throat: denies: Sore throat Cardiac: denies: Chest pain / pressure Respiratory: reports: Dyspnea. denies: Cough GI: denies: Abdominal Pain, Vomiting, Diarrhea : denies: Dysuria Skin: denies: Rash Neurologic: reports: Generalized weakness. denies: Focal weakness, Numbness, Headache PD PAST MEDICAL HISTORY - Past Medical History Cardiovascular: Congestive heart failure, Hypertension Respiratory: Asthma, Shortness of breath, Sleep apnea, CPAP use Neuro: None Endocrine/Autoimmune: Type 2 diabetes GI: Ulcers : Benign prostate hypertrophy, Incontinence HEENT: None Psych: Depression, Anxiety Musculoskeletal: Osteoarthritis, Rheumatoid arthritis, Chronic back pain Derm: None - Past Surgical History Past Surgical History: Yes General: Appendectomy, Hiatal hernia repair Ortho: Hip replacement - Present Medications Home Medications: Ambulatory Orders Medication Instructions Recorded Confirmed Azelastine HCl 1 - 2 spray NS BID 05/02/14 08/22/18 Glimepiride 1 mg PO DAILY 05/02/14 08/22/18 Montelukast Sodium [Singulair] 10 mg PO DAILY 05/02/14 08/22/18 Rivaroxaban [Xarelto] 20 mg PO DAILY 08/17/17 08/22/18 Valsartan 320 mg PO DAILY 08/17/17 08/22/18 Acetaminophen 1,000 mg PO DAILY PRN 08/18/17 08/22/18 Citalopram Hydrobromide 10 mg PO DAILY 05/09/18 08/22/18 [Citalopram HBr] Torsemide 40 mg PO DAILY 05/09/18 08/22/18 Fexofenadine HCl 180 - 360 mg PO QPM 08/22/18 08/22/18 Potassium Chloride 10 meq PO DAILY 08/22/18 08/22/18 Ropinirole HCl 0.5 mg PO QPM 08/22/18 08/22/18 Rosuvastatin Calcium 5 mg PO Q48H 08/22/18 08/22/18 Ciprofloxacin HCl [Cipro] 250 mg PO BID #20 tablet 08/25/18 Insulin Degludec [Tresiba 20 unit SUBQ QPM PRN #0 08/25/18 08/22/18 Flextouch U-100] Lactulose 10 gm PO BIDAC #1 bottle 08/25/18 Magnesium Oxide [Mag Ox] 400 mg PO DAILYWM tablet 08/25/18 Metoprolol Tartrate 50 mg PO BID #0 08/25/18 08/22/18 Tamsulosin HCl [Flomax] 0.4 mg PO QPM #1 cap.er.24h 08/25/18 Hyoscyamine Sulfate [Levsin-Sl] 0.125 mg SL Q6HR PRN #14 tab.subl 09/11/18 - Allergies Allergies/Adverse Reactions: Allergies Allergy/AdvReac Type Severity Reaction Status Date / Time oxycodone Allergy Unknown Verified 09/14/18 08:42 zolpidem [From Ambien] Allergy Unknown Verified 09/14/18 08:42 - Social History Does the pt smoke?: No Smoking Status: Never smoker Does the pt drink ETOH?: Yes Does the pt have substance abuse?: No - Immunizations Immunizations are current?: Yes - POLST Patient has POLST: Yes POLST Status: Full Code PD ED PE NORMAL - Vitals Vital signs reviewed: Yes (Normal) - General General: Alert and oriented X 3, Well developed/nourished, Other (Obese, able to communicate without evident respiratory distress.) - HEENT HEENT: Atraumatic, PERRL, EOMI, Moist mucous membranes, Other (Icteric sclera) - Neck Neck: Supple, no meningeal sign, No adenopathy - Cardiac Cardiac: No murmur, Other (Regular rate, irregularly irregular rhythm.) - Respiratory Respiratory: Clear bilaterally - Abdomen Abdomen: Normal bowel sounds, Non tender, Other (Protuberant abdomen, with asci caleb.) - Back Back: No CVA TTP - Derm Derm: No rash - Extremities Extremities: No tenderness to palpate, Other (Trace pedal edema bilaterally.) - Neuro Neuro: Alert and oriented X 3, No motor deficit, No sensory deficit, Other (Alert and oriented, but with mental confusion.) Results - Vitals Vitals: Vital Signs - 24 hr 09/14/18 09/14/18 09/14/18 08:35 09:30 10:30 Temperature 36.0 C L Heart Rate 62 57 L 59 L Respiratory 14 22 19 Rate Blood Pressure 120/85 H 108/51 L 155/97 H O2 Saturation 95 93 93 09/14/18 09/14/18 12:30 14:30 Temperature Heart Rate 56 L 56 L Respiratory 21 21 Rate Blood Pressure 106/56 L 103/50 L O2 Saturation 94 94 Oxygen O2 Source Room air - Labs Labs: Laboratory Tests 09/14/18 09/14/18 09/14/18 09:27 09:27 09:27 WBC 6.8 RBC 2.84 L Hgb 9.2 L Hct 27.1 L MCV 95.4 H MCH 32.2 H MCHC 33.7 RDW 14.5 Plt Count 130 MPV 9.9 Neut # (Auto) 5.4 Lymph # (Auto) 0.7 L [place] # (Auto) 0.5 Eos # (Auto) 0.1 Baso # (Auto) 0.1 Absolute Nucleated RBC 0.00 Nucleated RBC % 0.0 PT 20.8 H INR 1.9 H APTT 35.0 H Sodium 122 L Potassium 5.0 Chloride 88 L Carbon Dioxide 22 Anion Gap 12.0 BUN 59 H Creatinine 4.3 H Estimated GFR (MDRD) 13 L Glucose 146 H Lactic Acid Calcium 8.9 Total Bilirubin 1.5 H AST 70 H ALT 41 Alkaline Phosphatase 179 H Ammonia Total Protein 6.3 L Albumin 3.3 Globulin 3.0 Albumin/Globulin Ratio 1.1 Lipase 34 Urine Color Urine Clarity Urine pH Ur Specific [place] Urine Protein Urine Glucose (UA) Urine Ketones Urine Occult Blood Urine Nitrite Urine Bilirubin Urine Urobilinogen Ur Leukocyte Esterase Ur Microscopic Review Urine Culture Comments 09/14/18 09/14/18 09/14/18 09:27 09:27 09:46 WBC RBC Hgb Hct MCV MCH MCHC RDW Plt Count MPV Neut # (Auto) Lymph # (Auto) [place] # (Auto) Eos # (Auto) Baso # (Auto) Absolute Nucleated RBC Nucleated RBC % PT INR APTT Sodium Potassium Chloride Carbon Dioxide Anion Gap BUN Creatinine Estimated GFR (MDRD) Glucose Lactic Acid 1.8 Calcium Total Bilirubin AST ALT Alkaline Phosphatase Ammonia 38.8 H Total Protein Albumin Globulin Albumin/Globulin Ratio Lipase Urine Color YELLOW Urine Clarity CLEAR Urine pH 5.5 Ur Specific [place] 1.020 Urine Protein NEGATIVE Urine Glucose (UA) NEGATIVE Urine Ketones NEGATIVE Urine Occult Blood NEGATIVE Urine Nitrite NEGATIVE Urine Bilirubin NEGATIVE Urine Urobilinogen 0.2 (NORMAL) Ur Leukocyte Esterase NEGATIVE Ur Microscopic Review NOT INDICATED Urine Culture Comments NOT INDICATED PD MEDICAL DECISION MAKING - ED course Complexity details: reviewed old records, reviewed results, re-evaluated patient, considered differential, d/w patient, d/w family, d/w managing consultant clinical professor ED course: The patient's presentation is most consistent with hepatorenal syndrome. His BUN and creatinine today are 59 and 4.3, compared to 3 days ago when they were 40 and 1.4. His sodium is low at 122, ammonia is elevated at 38.8, and bilirubin is elevated at 1.5. With his acute renal failure he will need to be transported to a facility where nephrology specialty is available. [facility] was contacted, but has no beds available. I discussed his condition with the garment supervisor at [facility] in [place]. He advises administering ceftriaxone and IV albumin, and advised that the patient can be managed in a stepdown unit rather than in the intensive care unit. Subsequently I discussed his condition with Dr. Vinson, the Hospitalist at [facility]. He will accept the patient in transfer. Transfer forms were completed. Departure - Departure Disposition: 02 Transfer Acute Care Hosp Clinical Impression: Hepatic encephalopathy, Portal vein thrombosis, Hyponatremia Acute renal failure Qualifiers: Acute renal failure type: unspecified Qualified Code(s): N17.9 - Acute kidney failure, unspecified Liver cirrhosis Qualifiers: Hepatic cirrhosis type: alcoholic cirrhosis Ascites presence: with ascites Qualified Code(s): K70.31 - Alcoholic cirrhosis of liver with ascites Condition: Serious Discharge Date/Time: 09/14/18 15:15
[2018-09-14 15:16] VITALS: BP 103/50
== END 2018-09-14 15:15 | disposition short-term general hospital (02) ==
LOC: ED 08:31
DX: K72.90 Hepatic failure, unspecified without coma (principal); I81 Portal vein thrombosis; E87.1 Hypo-osmolality and hyponatremia; N17.9 Acute kidney failure, unspecified; I10 Essential (primary) hypertension; E11.9 Type 2 diabetes mellitus without complications; Z79.01 Long term (current) use of anticoagulants; Z79.4 Long term (current) use of insulin; K70.31 Alcoholic cirrhosis of liver with ascites
CPT/HCPCS: 36415; 51798; 80053; 81003; 82140; 83605; 83690; 85025; 85610; 85730; 96365; 96366; 96368; 99284; P9047; 81001; 87086

== ENCOUNTER 2018-09-14 15:12 | Outpatient (CLI) | payer MEDICARE, OTHER | END 2018-09-14 15:13 | disposition short-term general hospital (02) | LOC: EMS 15:12 | PROVIDERS: ATTEND Surgery | DX: N19 Unspecified kidney failure (principal) | CPT/HCPCS: A0425; A0426 ==

== ENCOUNTER 2018-10-01 13:37 | Outpatient (CLI) | payer MEDICARE, OTHER ==
--- NOTE | 2018-10-01 15:50 | XRAY Report ---
Reason: ABDOMINAL PAIN, BLOATING Procedure Date: 10/01/2018 Accession Number: [id number] / [id number] Procedure: XR - Abdomen 1 View X-Ray CPT Code: 61902 FULL RESULT: EXAM: ABDOMEN RADIOGRAPHY EXAM DATE: 10/01/2018 01:52 PM. CLINICAL HISTORY: Abdominal pain, bloating. COMPARISON: ABDOMEN 1 VIEW 09/10/2018 8:38 PM. TECHNIQUE: 1 view. FINDINGS: Bowel Gas Pattern: Within normal limits. No dilated loops. Other: None. IMPRESSION: Normal 1-view abdomen x-ray. RADIA
== END 2018-10-01 13:38 | disposition home or self-care (01) ==
LOC: DI 13:37
PROVIDERS: ATTEND Internal Medicine
DX: R10.9 Unspecified abdominal pain (principal); R14.0 Abdominal distension (gaseous)
CPT/HCPCS: 74018

== ENCOUNTER 2018-10-27 00:25 | Outpatient (CLI) | payer MEDICARE, OTHER | END 2018-10-27 00:26 | disposition EMS.NT | LOC: EMS 00:25 | PROVIDERS: ATTEND Surgery | DX: Z03.89 Encounter for observation for other suspected diseases and conditions ruled out (principal) ==

== ENCOUNTER 2018-10-27 16:55 | Outpatient (CLI) | payer MEDICARE, OTHER | END 2018-10-27 16:56 | disposition critical access hospital (66) | LOC: EMS 16:55 | PROVIDERS: ATTEND Surgery | DX: R53.1 Weakness (principal); Z03.89 Encounter for observation for other suspected diseases and conditions ruled out | CPT/HCPCS: A0425; A0427 ==

== ENCOUNTER 2018-10-27 17:03 | Observation (INO) | payer MEDICARE, OTHER ==
--- NOTE | 2018-10-27 17:14 | ED Physician Documentation ---
History of Present Illness - Stated complaint Stated Complaint: WEAK/DEHYDRATED - History obtained from History obtained from: Patient, EMS - History of Present Illness Timing: Other (This is an 83-year-old gentleman presents by ambulance for several days of worsening fatigue and generalized weakness. He has a history of alcoholic cirrhosis and was sent from here to [facility] about a month and a half ago for hepatorenal syndrome and portal thrombus. He is no longer on anticoagulation. He is a somewhat confusing historian on arrival and cannot really articulate why he is here. I am led to believe by the paramedics that the should be here shortly but she is not here in initial evaluation. The chief complaint is weakness and dehydration, I am not sure why they think he is dehydrated. He states that his only current pain is his back which is chronic. He is looking forward to a trip to [facility] in a few days.) Review of Systems Constitutional: reports: Fatigue, Weight Loss (purposeful). denies: Fever, Chills Cardiac: denies: Chest pain / pressure, Palpitations Respiratory: denies: Dyspnea, Cough GI: denies: Abdominal Pain, Nausea, Vomiting, Constipation, Diarrhea PD PAST MEDICAL HISTORY - Past Medical History Cardiovascular: Congestive heart failure, Hypertension Respiratory: Asthma, Shortness of breath, Sleep apnea, CPAP use Neuro: None Endocrine/Autoimmune: Type 2 diabetes GI: Ulcers : Benign prostate hypertrophy, Incontinence HEENT: None Psych: Depression, Anxiety Musculoskeletal: Osteoarthritis, Rheumatoid arthritis, Chronic back pain Derm: None - Past Surgical History Past Surgical History: Yes General: Appendectomy, Hiatal hernia repair Ortho: Hip replacement - Present Medications Home Medications: Ambulatory Orders Medication Instructions Recorded Confirmed Azelastine HCl 137 mcg NS BID PRN 10/27/18 10/27/18 Baclofen 5 mg PO TID 10/27/18 10/27/18 Citalopram [CeleXA] 10 mg PO DAILY 10/27/18 10/27/18 Furosemide 40 mg PO DAILY 10/27/18 10/27/18 Glimepiride 0.5 mg PO DAILY 10/27/18 10/27/18 Lactulose 10 gm ORAL BID 10/27/18 10/27/18 Magnesium Oxide 400 mg PO DAILY 10/27/18 10/27/18 Metoprolol Tartrate [Lopressor] 12.5 mg PO BID 10/27/18 10/27/18 Midodrine HCl 5 mg PO DAILY 10/27/18 10/27/18 Ropinirole HCl 0.5 mg PO QPM 10/27/18 10/27/18 Rosuvastatin Calcium 5 mg PO ONCE 10/27/18 10/27/18 Spironolactone 100 mg PO DAILY 10/27/18 10/27/18 rifAXIMin [Xifaxan] 550 mg PO BID 10/27/18 10/27/18 traZODone [Desyrel] 50 mg PO HS PRN 10/27/18 10/27/18 - Allergies Allergies/Adverse Reactions: Allergies Allergy/AdvReac Type Severity Reaction Status Date / Time Iodinated Contrast- Oral and Allergy Anaphylaxis Verified 10/27/18 17:25 IV Dye oxycodone Allergy Unknown Verified 10/27/18 17:13 zolpidem [From Ambien] Allergy Unknown Verified 10/27/18 17:13 - Social History Does the pt smoke?: No Smoking Status: Never smoker Does the pt drink ETOH?: Yes Does the pt have substance abuse?: No - Family History Family history: reports: Non contributory - Immunizations Immunizations are current?: Yes - POLST Patient has POLST: Yes POLST Status: Full Code PD ED PE NORMAL - Vitals Vital signs reviewed: Yes - General General: Alert and oriented X 3, Other (He is jaundiced and jovial but somewhat a poor Historian for poor short-term events) - HEENT HEENT: PERRL, Other (Icteric) - Neck Neck: Supple, no meningeal sign, No bony TTP - Cardiac Cardiac: RRR, No murmur - Respiratory Respiratory: No respiratory distress, Clear bilaterally - Abdomen Abdomen: Other (Distended with ascites, nontender) - Back Back: No CVA TTP, No spinal TTP - Derm Derm: Normal color, Warm and dry, No rash - Extremities Extremities: Other (Venous stasis changes) - Neuro Neuro: Alert and oriented X 3, Normal speech, Other (No asterixis) Eye Opening: Spontaneous Motor: Obeys Commands Verbal: Oriented GCS Score: 15 - Psych Psych: Normal mood, Normal affect Results - Vitals Vitals: Vital Signs - 24 hr 10/27/18 17:04 Temperature 36.6 C Heart Rate 51 L Respiratory 18 Rate Blood Pressure 133/57 H O2 Saturation 99 Oxygen O2 Source Room air - Labs Labs: Laboratory Tests 10/27/18 10/27/18 10/27/18 17:30 17:30 17:30 WBC 6.1 RBC 3.45 L Hgb 11.0 L Hct 32.8 L MCV 95.2 H MCH 31.8 H MCHC 33.5 RDW 16.9 H Plt Count 116 L MPV 9.5 Neut # (Auto) 4.8 Lymph # (Auto) 0.7 L Merrick # (Auto) 0.4 Eos # (Auto) 0.1 Baso # (Auto) 0.0 Absolute Nucleated RBC 0.00 Nucleated RBC % 0.0 PT 14.2 H INR 1.3 H Sodium 129 L Potassium 4.1 Chloride 95 L Carbon Dioxide 24 Anion Gap 10.0 BUN 52 H Creatinine 1.5 H Estimated GFR (MDRD) 45 L Glucose 146 H Calcium 10.0 Total Bilirubin 1.7 H AST 81 H ALT 50 Alkaline Phosphatase 176 H Ammonia Total Protein 7.3 Albumin 3.9 Globulin 3.4 Albumin/Globulin Ratio 1.1 Lipase 60 H Urine Color Urine Clarity Urine pH Ur Specific [place] Urine Protein Urine Glucose (UA) Urine Ketones Urine Occult Blood Urine Nitrite Urine Bilirubin Urine Urobilinogen Ur Leukocyte Esterase Ur Microscopic Review Urine Culture Comments Ethyl Alcohol < 5.0 10/27/18 10/27/18 17:30 17:55 WBC RBC Hgb Hct MCV MCH MCHC RDW Plt Count MPV Neut # (Auto) Lymph # (Auto) Merrick # (Auto) Eos # (Auto) Baso # (Auto) Absolute Nucleated RBC Nucleated RBC % PT INR Sodium Potassium Chloride Carbon Dioxide Anion Gap BUN Creatinine Estimated GFR (MDRD) Glucose Calcium Total Bilirubin AST ALT Alkaline Phosphatase Ammonia 23.8 Total Protein Albumin Globulin Albumin/Globulin Ratio Lipase Urine Color YELLOW Urine Clarity CLEAR Urine pH 5.5 Ur Specific [place] 1.010 Urine Protein NEGATIVE Urine Glucose (UA) NEGATIVE Urine Ketones NEGATIVE Urine Occult Blood NEGATIVE Urine Nitrite NEGATIVE Urine Bilirubin NEGATIVE Urine Urobilinogen 0.2 (NORMAL) Ur Leukocyte Esterase NEGATIVE Ur Microscopic Review NOT INDICATED Urine Culture Comments NOT INDICATED Ethyl Alcohol PD MEDICAL DECISION MAKING - ED course ED course: The arrived shortly thereafter and confirmed that for the last few days he has been confused and out of it. She relates this to starting baclofen a few days ago for his back. He was observed in the emergency department for a while and remained very somnolent. did not feel safe taking him home. The remainder of his medical condition seems stable and improved. I suspect the cause of his decompensation is the baclofen. He actually slightly worsened from a mental status perspective while being observed in the department. I spoke with Dr. Toth for observation at 7:15 PM. Departure - Departure Disposition: ED Place in Observation Clinical Impression: Hyponatremia Liver cirrhosis Qualifiers: Hepatic cirrhosis type: alcoholic cirrhosis Ascites presence: with ascites Qualified Code(s): K70.31 - Alcoholic cirrhosis of liver with ascites Ascites Qualifiers: Ascites type: due to alcoholic hepatitis Qualified Code(s): K70.11 - Alcoholic hepatitis with ascites Atrial fibrillation Qualifiers: Atrial fibrillation type: unspecified Qualified Code(s): I48.91 - Unspecified atrial fibrillation Altered mental status Qualifiers: Altered mental status type: delirium Qualified Code(s): R41.0 - Disorientation, unspecified Condition: Stable
[2018-10-27 17:39] LABS: BASOPHILS % (AUTO) 0.8 %; EOSINOPHILS # (AUTO) 0.1 10^3/uL (0.0-0.7); EOSINOPHILS % (AUTO) 1.1 %; LYMPHOCYTES # (AUTO) 0.7 10^3/uL (1.5-3.5); LYMPHOCYTES % (AUTO) 11.8 %; MEAN CORPUSCULAR HEMOGLOBIN 31.8 pg (27.0-31.0); MEAN CORPUSCULAR HGB CONC 33.5 g/dL (32.0-36.0); MEAN CORPUSCULAR VOLUME 95.2 fL (80.0-94.0); MEAN PLATELET VOLUME 9.5 fL (7.4-11.4); MONOCYTES # (AUTO) 0.4 10^3/uL (0.0-1.0); MONOCYTES % (AUTO) 7.2 %; NEUTROPHILS # (AUTO) 4.8 10^3/uL (1.5-6.6); NEUTROPHILS % (AUTO) 79.1 %; PLT - PLATELET COUNT 116 10^3/uL (130-450); RED BLOOD COUNT 3.45 10^6/uL (4.70-6.10); RED CELL DISTRIBUTION WIDTH 16.9 % (12.0-15.0); WHITE BLOOD COUNT 6.1 x10^3/uL (4.8-10.8)
[2018-10-27 17:42] LABS: INR 1.3 (0.8-1.2); PT - PROTHROMBIN TIME 14.2 secs (9.9-12.6)
[2018-10-27 17:49] LABS: ALBUMIN 3.9 g/dL (3.2-5.5); ALBUMIN/GLOBULIN RATIO 1.1 (1.0-2.2); ALKALINE PHOSPHATASE 176 IU/L (42-121); ALT ALANINE AMINOTRANSFERASE 50 IU/L (10-60); AST ASPARTATE AMINOTRANSFERASE 81 IU/L (10-42); BILIRUBIN,TOTAL 1.7 mg/dL (0.2-1.0); BUN - BLOOD UREA NITROGEN 52 mg/dL (6-20); CARBON DIOXIDE - CO2 24 mmol/L (21-32); CHLORIDE 95 mmol/L (101-111); CREATININE 1.5 mg/dL (0.6-1.2); GFR - MDRD 45 (>89); GLUCOSE 146 mg/dL (70-100); LIPASE 60 U/L (22-51); SODIUM 129 mmol/L (135-145); TOTAL PROTEIN 7.3 g/dL (6.7-8.2)
[2018-10-27 18:06] LABS: BILIRUBIN,URINE NEGATIVE (NEGATIVE); GLUCOSE, URINE (UA) NEGATIVE (NEGATIVE); KETONES,URINE (UA) NEGATIVE (NEGATIVE); LEUKOCYTE ESTERASE, URINE NEGATIVE (NEGATIVE); NITRITE,URINE NEGATIVE (NEGATIVE); OCCULT BLOOD,URINE NEGATIVE (NEGATIVE); PH,URINE 5.5 PH (5.0-7.5); PROTEIN,URINE NEGATIVE (NEGATIVE); UROBILINOGEN,URINE 0.2 (NORMAL) E.U./dL (NORMAL)
[2018-10-27 18:07] LABS: CLARITY,URINE CLEAR (CLEAR)
[2018-10-27] MEDS ORDERED: ONDANSETRON 4 MG/2 ML VIAL IVP PRN (19:21)
[2018-10-27] MEDS ORDERED: LIDOCAINE PATCH 5% TOP PRN (20:14)
--- NOTE | 2018-10-27 20:22 | HISTORY & PHYSICAL EXAMINATION ---
Chief Complaint - Chief Complaint Chief Complaint: Drug-induced encephalopathy, hyponatremia, ETOH cirrhosis History of Present Illness - Admitted From Admitted From:: ED - History Obtained From Records Reviewed: yes History obtained from: patient Exam Limitations: poor historian - History of Present Illness HPI Comment/Other: This is an 83-year-old gentleman presents by ambulance for several days of worsening fatigue and generalized weakness. He has a history of alcoholic cirrhosis and was sent from here to [facility] about a month and a half ago for hepatorenal syndrome and portal thrombus. He is no longer on anticoagulation. He is a somewhat confusing historian on arrival and cannot really articulate why he is here. Patient has hx afib for which he no longer takes xarelto, IDDM, MARISOL on CPAP, chronic diastolic HF, Chronic back pain with RA/OA who was placed on baclofen by PCP 2 days ago, ETOH liver cirrhosis for which he states he has been sober 2 months now. He states that his only current pain is his back which is chronic. He is looking forward to a trip to [facility] in a few days. On initial exam patient was actually quite verbal and expressed a 10/10 back pain and was alert, oriented x3, ammonia was normal, labs showed a an anemia, macrocytosis, thrombocytopenia, transaminitis with AST 81, A LT 50, tbili 1.7, lipase 60. INR 1.3, cr 1.5 with a baseline ranging 0.9-1.2 as he has hx hepatorenal syndrome for which he takes midodrine. VSS, bradycardic and afebrile, c/o of lower back pain w/o reports of melena, nausea, emesis, cva pain, fevers, /GI sx's. History - Past Medical History Cardiovascular: reports: Congestive heart failure, Hypertension Respiratory: reports: Asthma, Shortness of breath, Sleep apnea, CPAP use Neuro: reports: None Endocrine/Autoimmune: reports: Type 2 diabetes, Other (IDDM) GI: reports: Ulcers : reports: Benign prostate hypertrophy, Incontinence HEENT: reports: None Psych: reports: Depression, Anxiety Musculoskeletal: reports: Osteoarthritis, Rheumatoid arthritis, Chronic back pain Derm: reports: None MRSA Hx?: No - Past Surgical History General: reports: Appendectomy, Hiatal hernia repair Ortho: reports: Hip replacement - Family & Social History Family History: Mother: (Mother and father both lived to be 94 years old and of old age. Patient states everyone in the family has been healthy), Father: Social History Notes: The patient lives with his girlfriend in [place]. They are planning to get in the [facility] next month. The patient is originally from the [facility] and his family still lives out there. The patient has been living on [facility] off and on for the last 8 years. 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 The patient does not have any children. He and his girlfriend together drink a bottle of wine with dinner each night. The patient does not smoke and he denies any illicit drug use. He gets around the house with a walker. - POLST Patient has POLST: Yes POLST Status: Full Code Meds/Allgy - Home Medications Home Medications: Ambulatory Orders Medication Instructions Recorded Confirmed Azelastine HCl 137 mcg NS BID PRN 10/27/18 10/27/18 Baclofen 5 mg PO TID 10/27/18 10/27/18 Citalopram [CeleXA] 10 mg PO DAILY 10/27/18 10/27/18 Furosemide 40 mg PO DAILY 10/27/18 10/27/18 Glimepiride 0.5 mg PO DAILY 10/27/18 10/27/18 Lactulose 10 gm ORAL BID 10/27/18 10/27/18 Magnesium Oxide 400 mg PO DAILY 10/27/18 10/27/18 Metoprolol Tartrate [Lopressor] 12.5 mg PO BID 10/27/18 10/27/18 Midodrine HCl 5 mg PO DAILY 10/27/18 10/27/18 Ropinirole HCl 0.5 mg PO QPM 10/27/18 10/27/18 Rosuvastatin Calcium 5 mg PO ONCE 10/27/18 10/27/18 Spironolactone 100 mg PO DAILY 10/27/18 10/27/18 rifAXIMin [Xifaxan] 550 mg PO BID 10/27/18 10/27/18 traZODone [Desyrel] 50 mg PO HS PRN 10/27/18 10/27/18 - Allergies Allergies/Adverse Reactions: Allergies Allergy/AdvReac Type Severity Reaction Status Date / Time Iodinated Contrast- Oral and Allergy Anaphylaxis Verified 10/27/18 17:25 IV Dye oxycodone Allergy Unknown Verified 10/27/18 17:13 zolpidem [From Ambien] Allergy Unknown Verified 10/27/18 17:13 Review of Systems - Constitutional Constitutional: reports: Weakness, Other. denies: Fatigue, Fever, Poor appetite - Ears, Nose & Throat Ears, Nose & Throat: denies: Vertigo - Cardiovascular Cariovascular: denies: Irregular heart rate, Palpitations, Chest pain, Edema - Respiratory Respiratory: denies: Orthopnea, Apnea - Gastrointestinal Gastrointestinal: denies: Abdominal pain, Constipation, Diarrhea, Bloody stools, Nausea, Vomiting - Genitourinary Genitourinary: denies: Dysuria, Frequency, Urgency, Hematuria - Musculoskeletal Musculoskeletal: reports: Back pain, Limited range of motion - Integumentary Integumentary: denies: Rash, Pruritis, Lesions - Neurological Neurological: denies: Dizziness, Numbness, Slurred speech - Psychiatric Psychiatric: denies: Depression, Anxiety, Suicidal, Hallucinations - Hematologic/Lymphatic Hematologic/Lymphatic: reports: Anemia. denies: Bruising, Petechiae, Blood clots, Recurrent infections - All Other Systems All Other Systems: reports: Reviewed and negative Prior Level of Functionality: Patient states he ambulates with difficultly due to chronic LBP Exam - Vital Signs Reviewed Vital Signs: Yes Vital Signs: Vital Signs x48h Temp Pulse Pulse Resp BP BP Pulse Ox 10/27/18 20:09 36.6 C 53 L 21 122/61 97 10/27/18 19:25 36.3 C L 54 L 20 93/61 97 10/27/18 17:04 36.6 C 51 L 18 133/57 H 99 VSS, afebrile, bradycardic, BP 133/57 - Physical Exam General Appearance: positive: Moderate distress (due to pain in back), Other Eyes Bilateral: positive: Normal inspection, PERRL, EOMI ENT: positive: Pharynx nml, No signs of dehydration. negative: Oral lesions, Dry mucous membranes Neck: positive: Nml inspection, Thyroid nml, No JVD, Trachea midline. negative: Thyromegaly, Carotid bruit Respiratory: positive: Chest non-tender, No respiratory distress, Breath sounds nml. negative: Wheezes, Rales, Rhonchi Cardiovascular: positive: Regular rate & rhythm, No murmur, No gallop. negative: Irregularly irregular, Gallop/S4 Peripheral Pulses: positive: 2+ Abdomen: positive: Non-tender, No organomegaly, Nml bowel sounds, No distention, Other (ascites present). negative: Tenderness, Guarding, Rebound, Hepatomegaly, Splenomegaly Back: positive: Other (Pain to L4/L5 with +SLT) Skin: positive: Color nml, No rash, Warm, Dry Extremities: positive: Non-tender, Full ROM, Nml appearance, No pedal edema, Joint swelling Conclusion/Plan - Problem List (1) Drug-induced encephalopathy Conclusion/Plan: Symptoms paula to be resolving now will give IVF's for 24hrs and then discontinue, seems to have some mild pre-renal azotemia as a result of diuretics, baclofen and sedative agents HELD due to its side effects and primary contributing factor. Ammonia level was normal, UDS and ETOH level pending as patient states he has not drank in 2 months. 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 Correct electrolyte d/o and avoid nephrotoxic agents. (3) Chronic lumbar radiculopathy Conclusion/Plan: Chronic LBP with a positive SLT, likely with mod-severe radiculopathy and was previously rx'ed baclofen that is currently on hold, would likely benefit from Neurontin however has renal insufficiency, would start low dose flexeril plus lidoderm patch and heat pads for now. Review of prior T/L-spine CT shows Degenerative Disc disease with prior compression fractures and moderate spinal canal stenosis at L4/L5 level, would benefit from epidural steroid/lidocaine injection. However, no IR service here. Avoid narcotics, NSAIDS and diuretics as he has acute renal insufficiency. (4) Ascites Conclusion/Plan: Appears to be non-tense ascites at this point, restart lactulose as well as rifaximin, avoid fluid overload, hold diuretics until renal insufficiency resolved. Qualifiers: Ascites type: due to alcoholic hepatitis Qualified Code(s): K70.11 - A lcoholic hepatitis with ascites (5) Hyponatremia Conclusion/Plan: Appears to be related to hypovelemic hyponatremia in the setting of ETOH liver cirrhosis with ascites on clinical exam. Place on fluid restriction 1800 ml/24hrs. Avoid rapid correction of sodium to prevent osmotic demyelination. (6) Liver cirrhosis Conclusion/Plan: Transaminitis seen appears chronic with hyperbilirubinemia, lipase mildly elevated, would continue with lactulose to prevent hepatic encephalopathy, start nadolol as likely has portal HTN. ETOH level pending. Qualifiers: Hepatic cirrhosis type: alcoholic cirrhosis Ascites presence: with ascites Qualified Code(s): K70.31 - Alcoholic cirrhosis of liver with ascites (7) Advance care planning Conclusion/Plan: Patient conveyed he would like to be DNR, POLST to follow, goals of care, symptoms mgmt and disease trajectory discussed in length with patient. (8) Drug-induced bradycardia Conclusion/Plan: Telemetry shows bradycardia with pauses and possible afib, likely resulting from metoprolol which will be held for now. Obtain 12 lead ECG, check mag, TSH and correct underlying lytes. Consider ECHO if persistent to eval for MWA or ischemia although chest pain free and with no SOB or S/S of angina. - Lab Results Lab results reviewed: Yes Fish Bones: 10/28/18 05:45 10/28/18 05:45 - EKG Results EKG Interpreted Independently: No EKG Comparison: Other (Tele shows bradycardia with some pauses, query on new onset afib?) Core Measures - Anticipated LOS I expect patient to be DC'd or transferred within 96 hours.: Yes - Issues Hospital Issues and Management Plan: PT/OT needs some rehab - DVT/VTE - Prophylaxis VTE/DVT Device ordered at admit?: Yes VTE/DVT Prophylaxis med ordered at admit?: Yes - Stroke - Rehab Assessment Rehab services assessment to be ordered?: No Not Ordered - Medical Reason: Not indicated - AMI - Statin at Admit Aspirin Prescribed on Admit: No Not Ordered - Medical Reason: Not indicated (plts 116)
[2018-10-27] MEDS ORDERED: traZODone 50 MG TABLET PO PRN (20:38)
[2018-10-27] MEDS: LACTATED RINGERS 1,000 ML IV SCH (20:41)
[2018-10-27] MEDS: CELECOXIB 100 MG CAPSULE PO SCH (20:41)
[2018-10-27] MEDS: CYCLOBENZAPRINE 10 MG TABLET PO PRN (20:41)
[2018-10-27 21:00] LABS: HB2 TOTAL 11.5 g/dL; HEMOGLOBIN A1C 0.47 g/dL; HEMOGLOBIN A1C % 5.9 % (4.6-6.2)
[2018-10-27] MEDS ORDERED: METOPROLOL TARTRATE 25 MG TABLET PO SCH (21:00)
[2018-10-27] MEDS ORDERED: FAMOTIDINE 20 MG/50 ML 50 ML IV SCH (21:00)
[2018-10-27] MEDS: INSULIN ASPART 300 UNIT/3 ML PEN SUBQ SCH (21:16)
[2018-10-27] MEDS: rifAXIMin 550 MG TABLET PO SCH (22:57)
[2018-10-27] MEDS: LACTULOSE 10 GM/15 ML BOTTLE PO SCH (22:57)
[2018-10-27] MEDS ORDERED: LACTULOSE 10 GM /15 ML UDC ONE (22:57)
[2018-10-28] MEDS: SODIUM CHLORIDE FLUSH 0.9% 10 ML SYRINGE IVP SCH ×2 (00:59→13:51)
[2018-10-28] MEDS: CYCLOBENZAPRINE 10 MG TABLET PO PRN (03:39)
[2018-10-28] MEDS ORDERED: LACTULOSE 10 GM /15 ML UDC ONE (05:55)
[2018-10-28 05:57] LABS: BASOPHILS % (AUTO) 0.7 %; EOSINOPHILS # (AUTO) 0.2 10^3/uL (0.0-0.7); EOSINOPHILS % (AUTO) 3.7 %; LYMPHOCYTES # (AUTO) 0.8 10^3/uL (1.5-3.5); MEAN CORPUSCULAR HEMOGLOBIN 31.8 pg (27.0-31.0); MEAN CORPUSCULAR VOLUME 96.1 fL (80.0-94.0); MEAN PLATELET VOLUME 8.7 fL (7.4-11.4); MONOCYTES # (AUTO) 0.4 10^3/uL (0.0-1.0); MONOCYTES % (AUTO) 8.4 %; NEUTROPHILS # (AUTO) 3.6 10^3/uL (1.5-6.6); NEUTROPHILS % (AUTO) 71.2 %; PLT - PLATELET COUNT 119 10^3/uL (130-450); RED BLOOD COUNT 3.47 10^6/uL (4.70-6.10); RED CELL DISTRIBUTION WIDTH 16.6 % (12.0-15.0); WHITE BLOOD COUNT 5.1 x10^3/uL (4.8-10.8)
[2018-10-28] MEDS: LACTULOSE 10 GM/15 ML BOTTLE PO SCH ×2 (06:01→06:10)
[2018-10-28 06:06] LABS: ALBUMIN 3.6 g/dL (3.2-5.5); ALBUMIN/GLOBULIN RATIO 1.1 (1.0-2.2); BILIRUBIN,TOTAL 1.9 mg/dL (0.2-1.0); CALCIUM 9.6 mg/dL (8.5-10.3); CREATININE 1.5 mg/dL (0.6-1.2)
[2018-10-28] MEDS: LACTATED RINGERS 1,000 ML IV SCH (06:58)
[2018-10-28] MEDS ORDERED: LACTATED RINGERS 1,000 ML IV SCH ×2 (07:02→10:19)
[2018-10-28] MEDS: INSULIN ASPART 300 UNIT/3 ML PEN SUBQ SCH ×2 (07:55→11:35)
[2018-10-28] MEDS ORDERED: MAGNESIUM OXIDE 400 MG TABLET PO SCH (08:00)
[2018-10-28] MEDS ORDERED: MIDODRINE HCL 5 MG PO SCH (09:00)
[2018-10-28] MEDS ORDERED: MIDODRINE 2.5 MG TABLET PO SCH ×2 (09:00→14:00)
[2018-10-28] MEDS ORDERED: CITALOPRAM 10 MG TABLET PO SCH (09:00)
[2018-10-28] MEDS ORDERED: SPIRONOLACTONE 25 MG TABLET PO SCH (09:00)
[2018-10-28] MEDS ORDERED: ENOXAPARIN 30 MG/0.3 ML SYRINGE SUBQ SCH (09:00)
[2018-10-28] MEDS ORDERED: MAGNESIUM OXIDE 400 MG PO SCH (09:00)
[2018-10-28] MEDS ORDERED: POLYETHYLENE GLYCOL 3350 17 GM PACKET PO SCH (09:00)
[2018-10-28] MEDS ORDERED: NADOLOL 20 MG TABLET PO SCH ×2 (09:00)
[2018-10-28] MEDS ORDERED: FAMOTIDINE 20 MG/50 ML 50 ML IV SCH (09:00)
[2018-10-28] MEDS: rifAXIMin 550 MG TABLET PO SCH (10:06)
[2018-10-28] MEDS: CELECOXIB 100 MG CAPSULE PO SCH (10:06)
--- NOTE | 2018-10-28 12:32 | CT Report ---
Reason: fall w severe cocccyx pain Procedure Date: 10/28/2018 Accession Number: [id number] / [id number] Procedure: CT - Pelvis W/O CPT Code: FULL RESULT: EXAM: CT BONY PELVIS WITHOUT CONTRAST EXAM DATE: 10/28/2018 11:09 AM. CLINICAL HISTORY: Fall with severe coccyx pain. COMPARISON: CT abdomen and pelvis 09/11/2018.. TECHNIQUE: Thin-section axial images were acquired of the pelvis without contrast. Post-processing: Coronal and sagittal reformats. Other: None. In accordance with CT protocol optimization, one or more of the following dose reduction techniques were utilized for this exam: automated exposure control, adjustment of mA and/or KV based on patient size, or use of iterative reconstructive technique. FINDINGS: Bones: No acute fracture. No osseous lesion. Left total hip arthroplasty with cerclage wires surrounding the left intertrochanteric femur. Sacroiliac Joints: Severe bilateral sacroiliac joint osteoarthrosis with extensive subchondral sclerosis and cystic change. Symphysis Pubis: Mild degenerative changes of the pubic symphysis. Right Hip: Moderate right hip joint space loss with underlying subchondral cystic change and marginal osteophyte formation. Left Hip: Left total hip arthroplasty. No periprosthetic osteolysis. Musculature: Normal. No fatty atrophy. Pelvic Cavity: Ascites. Diffuse arterial calcification. Fluid within the right inguinal canal. This is unchanged. Other: No lymphadenopathy. No free air or free fluid. The other visualized soft tissues are unremarkable. IMPRESSION: No evidence of acute fracture. RADIA
--- NOTE | 2018-10-28 12:46 | Discharge Plan ---
"Discharge Plan for SNF / [facility] - Discharge Plan And Transition Orders Disposition: 03 SNF DC/Xfer Condition: Fair Allergies and Adverse Reactions: Allergies Allergy/AdvReac Type Severity Reaction Status Date / Time Iodinated Contrast- Oral and Allergy Anaphylaxis Verified 10/27/18 17:25 IV Dye oxycodone Allergy Unknown Verified 10/27/18 17:13 zolpidem [From Ambien] Allergy Unknown Verified 10/27/18 17:13 - SNF / [facility] Transition Orders Admit to (Facility): [facility] Discharge Diagnosis: 1. Metabolic encephalopathy secondary to baclofen, resolved 2. Severe back and coccyx pain after fall at home 3. 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 Type 2 diabetes mellitus, controlled, without complications 5. Hypertension 6. Cognitive deficit of aging 7. Elevated alpha-fetoprotein levels, needs MRI of liver. Hepatitis panel negative in 2013 and repeat hepatitis panel as well as repeat alpha-fetoprotein level pending from this discharge 8. Stage B chronic right-sided congestive heart failure. Echocardiogram August 22, 2018 with ejection fraction 60-65%. Mild ventricular enlargement. Severe right atrial enlargement. Mildly abnormal heart pressures with RVSP at rest 43 mmHg 9. Asthma 10. Obstructive sleep apnea with CPAP use 11. Benign prostatic hypertrophy with lower urinary tract symptoms of obstruction and incontinence 12. Depression with anxiety Medicare Certification Statement: I certify that [facility] is medically necessary on a continuing basis for any of the conditions for which she/he is receiving care during hospitalization. Notify PCP of admission and forward orders to primary provider for signature. Weight on admission and: Daily Call PCP immediately if weight increases by: 2 kg Other Notification Orders: Call PCP immediately if patient develops dyspnea, chest pain/tightness or edema. House Bowel Program: Yes Additional Bowel Program Orders: If no BM after 2 days, nurse may give M.O.M. 30ml PO PRN and/or ducolax Supp 1 WA and/or TRACEY 250mg P.O., and/or senna 1-2 tabs PO. On day 3 nurse may give repeat above order until residents constipation is resolved. Annual Influenza Vaccine (between Jun 23 and January 20): Yes Two-step PPD per [facility] [id number] or approved exception documents: Yes Medication Orders: PLEASE REFER TO THE DISCHARGE MEDICATION LIST. Insulin Orders?: Yes - Medications New Prescriptions: Cyclobenzaprine [Flexeril] 5 mg PO TID PRN #30 tablet PRN Reason: Spasms - Diet Type: 2 gram sodium, 4 carb choice Texture: Regular Liquids: Thin May have monthly special meal: Yes - Therapies | Activity Therapy: Evaluation | Treat if indicated: PT, OT Rehabilitation Potential: Return to independent living Activity: Activity as Tolerated Weight Bearing: Full Weight Assistance Devices: Walker Additional Instructions: This gentleman has cirrhosis from alcoholic liver disease. This is a relatively recent diagnosis. However, alpha-fetoprotein levels are rising. Hepatitis galeano el in 2013 was negative. Repeat hepatitis panel and repeat alpha-fetoprotein levels are pending from this admission on today's discharge. Please call back to get those records sent to you. This patient also needs to be sent for an MRI of the liver during his stay with you. Please schedule with [facility]. He was admitted because of confusion and lethargy after being started on baclofen 2 days ago. The baclofen is for chronic back pain. He is also fallen twice this month. Because of coccyx pain a CT of the pelvis was done today. He has had a left hip replacement. He has moderate right hip joint space loss with underlying subchondral cystic changes and osteophytes. Severe bilateral sacroiliac joint arthritis with extensive subchondral sclerosis and cystic changes. No evidence of acute fracture. He does have ascites and fluid within the right inguinal canal unchanged from previous CT September 11, 2018. Insulin Orders - SNF Basal | Correction | Custom Orders: Diagnosis: Diabetes Initiate hypo and hyperglycemia protocols for BG <70 and BG >375. May check BG PRN for signs/symptoms of dysglycemia. Frequency of BG checks: [AC/Meal/HS] Basal Insulin: [] Lantus 100 units / ml inject subq as follows: [] [] Other: [] Correction Insulin: - Select the type of insulin below [Choose: Humalog]100 units /ml insulin inject subq per orders indicate below [X] LOW DOSE [] MODERATE DOSE [] MODERATE/HIGH DOSE [] HIGH DOSE GB UNITS GB UNITS GB UNITS GB UNITS 61-140 0 UNITS 61-140 0 UNITS 61-140 0 UNITS 61-140 0 UNITS 141-175 1 UNITS 141-175 1 UNITS 141-175 2 UNITS 141-175 3 UNITS 176-225 2 UNITS 176-225 3 UNITS 176-225 4 UNITS 176-225 5 UNITS 226-275 3 UNITS 226-275 5 UNITS 226-275 6 UNITS 226-275 7 UNITS 276-325 4 UNITS 276-325 7 UNITS 276-325 8 UNITS 276-325 9 UNITS 326-375 5 UNITS 326-375 9 UNITS 326-375 10 UNITS 326-375 11 UNITS >375 CONTACT MD >375 CONTACT MD >375 CONTACT MD >375 CONTACT MD Custom Dosing: [Choose: Novolog/Humalog] 100 units/ml Insulin inject subq as follows: GB Units 61-140 [] Units 141-175 [] Units 176-225 [] Units 226-275 [] Units 276-325 []Units 326-375 [] Units >375 Contact MD"
[2018-10-28] MEDS ORDERED: methylPREDNISolone SUCCINATE 40 MG/ML VIAL IVP SCH (13:16)
[2018-10-28] MEDS ORDERED: LACTULOSE 10 GM /15 ML UDC PO SCH (14:00)
[2018-10-28] MEDS: SODIUM CHLORIDE FLUSH 0.9% 10 ML SYRINGE IVP PRN ×3 (14:42→14:51)
[2018-10-28 14:57] VITALS: BP 123/63
--- NOTE | 2018-10-28 20:08 | DISCHARGE SUMMARY ---
Physician: Luciana Patel MD DATE OF ADMISSION: 10/27/2018 DATE OF DISCHARGE: 10/28/2018 DISCHARGE DIAGNOSES 1. Drug-induced encephalopathy. 2. Acute renal insufficiency. 3. Fall at home. 4. Alcoholic cirrhosis of the liver with ascites. 5. Chronic back pain. 6. Acute back pain. 7. Hyponatremia. 8. Elevated alpha fetoprotein. 9. Drug-induced bradycardia. DISCHARGE MEDICATIONS 1. Azelastine nasal spray b.i.d. 2. Celexa 10 mg p.o. daily. 3. Flexeril 5 mg p.o. t.i.d. as needed. Please watch for sedation and whole dosing. 4. Lasix 40 mg p.o. daily for cor pulmonale. 5. Glimepiride 1 mg tablet, half a tablet daily. 6. Lactulose 10 grams orally b.i.d. 7. Lidoderm patch to coccyx daily. 8. Magnesium oxide 400 mg daily. 9. Medrol Dosepak for back pain, to be tapered as directed. 10. Lopressor 12.5 mg p.o. b.i.d. 11. Midodrine 5 mg p.o. daily. 12. Xifaxan 550 mg p.o. b.i.d. 13. Ropinirole 0.5 mg tablet for restless legs. 14. Rosuvastatin 5 mg tablet every 2 days. 15. Spironolactone 100 mg daily. 16. Desyrel 50 mg p.o. at bedtime. PRINCIPAL PROCEDURES 1. Pelvis CT done for severe coccyx pain after falling. Left total hip arthroplasty with cerclage wires. Severe bilateral sacroiliac joint osteoarthritis with extensive subchondral sclerosis and cystic changes. Moderate right hip joint space loss with underlying subchondral cystic change and marginal osteophytes. Ascites is seen in the pelvic cavity. No evidence of acute fracture. 2. Telemetry strips showed consistent borderline first-degree AV block with bradycardia. HOSPITAL COURSE: Patient is an 83-year-old man who has unfortunately been failing over the last several months. While he is a large gentleman with type 2 diabetes, and a heavy drinker, with obstructive sleep apnea, he was relatively independent. 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 In July of 2018, he presented with generalized weakness. That stay was a prolonged stay with multiple medical problems that came to light. He was initially felt to have sepsis, and he presented with diarrhea, gradually worsening metabolic encephalopathy, decreased p.o. intake, falling. Overall it was felt that it was a combination of factors causing him to have metabolic encephalopathy, that he did not have sepsis. He was noncompliant with his sleep mask, and had de- stabilization of his obstructive sleep apnea. He had a newly diagnosed cirrhosis, with elevated ammonia and hepatic encephalopathy. He also had a rising alpha-fetoprotein. Lactic acidosis was attributed more to his metformin than true infection. He gradually improved but felt he was still too weak to be going home and, as such, was transferred to [facility]. He was supposed to have gotten followup ammonia levels, an MRI of the liver for the rising alpha-fetoprotein. After discharge from [facility], his took him for an opinion at [facility]. He also was supposed to get evaluation for the rising alpha fetoprotein. She does not remember if imaging studies were ordered, but he has been lost to followup for unclear reasons. states that it has been very difficult to access the system. From [facility], he returned home. He has seen his primary care provider, Dr. Winchester. He then returned to the hospital 09/11/2018. A CT scan of his abdomen showed portal vein thrombosis. He was continued on his Xarelto. Between 09/11/2018 and 09/14/2018, he gained weight, became more encephalopathic, came back to the emergency room with hepatorenal failure. His creatinine was 4.3. feels that he went into renal failure from the CT scan with dye that was done for his portal vein thrombosis. He was transferred to [facility] in [place]. From there, he was returned to home. She said that she has had him on a very strict low sodium, low carbohydrate diet. He has lost about 40 pounds. He has been walking in the house, ambulatory. They are actually in the process of moving to [facility]. They have the plane tickets to go on 10/31/2018. In the last few days, he has been getting worse with regards to back pain. He has chronic back pain with osteoarthritis. He was placed on baclofen by his primary care provider 2 days prior to admission. Since that time, he has been getting more and more lethargic, more confused. He was brought in by ambulance. He continues to have elevated liver enzymes, an ammonia level that is normal. He was oriented x3, but miserable with back pain. He did not have any melena, nausea, or emesis. Under observation status, we felt that he had a drug-induced encephalopathy. His symptoms seemed to be resolving, but he was still sleepy in the ER and as such, he was placed in observation. He was given Flexeril instead of baclofen for the back pain. By the next morning, he was more alert. Still very tired and sleepy, but not confused. Complaining bitterly of back pain and, as such, a CT pelvis was done, which showed the above findings but no fracture of the coccyx or pelvis. His acute renal insufficiency was treated with lactated Ringer's, and lumbar radiculopathy was treated with Flexeril, Lidoderm patch, and heating pads. He did not need any paracentesis for his ascites. Hyponatremia remained stable and did not improve or worsen. is concerned about his alpha-fetoprotein. It was normal with a normal hepatitis panel in 2013. Repeat alpha-fetoprotein with his 08/11/2018 admission was over 300. [facility] in July had wanted that level repeated, but it has not been done so and asked us to repeat it while he was here. Unfortunately, he has not been able to get the MRI I had requested, and MRI is not available on the weekends here. While he has improved from mentation, he still continues to be very slow to move. Tremendous pain in his lower back. asked for steroids to be given, and he has been given a Medrol Dosepak. He will need some strengthening and rehabilitation at facility. He has been transferred to [facility] for that. I have written a letter for her to cancel her reservations for [facility], so she can reschedule. I have also asked that [facility] medical billing associate order an MRI of his liver to at least help him with that before he goes to [facility]. He is discharged in stable condition with significant back pain. Temperature is 36.2, pulse is 55, blood pressure is 123/63, respirations 20 and unlabored, 97% on room air. He is an alert, oriented Urdu male, looks stated age. Alert enough to ask for different food tray, uses utensils to feed himself appropriately. PHYSICAL EXAMINATION LUNGS: Diminished breath sounds at the bases, but are essentially clear without any increased respiratory effort. CARDIAC: PMI is normally placed with a regular rate and rhythm. DERM: He does have slight jaundice, but his bilirubin is not severely elevated. The most it was elevated with 2 in July 2018, and with this admission, he is 1.9. ABDOMEN: Soft, I do not really feel a fluid wave. No tenderness. Liver edge felt below the right costal margin. No edema. NEURO: He has a slow, shuffling gait when he moves. He has been evaluated by Physical Therapy. He should follow up with Dr. Winchester if he has the opportunity. I do not know when he and his plan on leaving for [facility]. TD: 10/28/2018 16:28 SHIVANI
[2018-10-28] MEDS ORDERED: rOPINIRole 0.25 MG TABLET PO SCH (21:00)
[2018-10-30 12:53] LABS: HEPATITIS A IGM NON-REACTIVE (NON-REACTIVE); HEPATITIS B CORE ANTIBODY IGM NON-REACTIVE (NON-REACTIVE); HEPATITIS B SURFACE ANTIGEN NON-REACTIVE (NON-REACTIVE); HEPATITIS C ANTIBODY NON-REACTIVE (NON-REACTIVE)
[2018-11-02 03:19] LABS: ACETONE None Detected; AMPHETAMINES negative; BARBITURATES negative; BENZODIAZEPINES negative; COCAINE METABOLITES negative; ETHYL ALCOHOL None Detected; ISOPROPANOL None Detected; MARIJUANA negative; METHADONE negative; METHYL ALCOHOL None Detected; OPIATES negative; PCP negative; PROPOXYPHENE negative
== END 2018-10-28 15:35 ==
LOC: EDUNIT# → ED 17:03 → MS2 19:21
PROVIDERS: ADMIT Family Medicine; ATTEND Specialist
DX: G92 Toxic encephalopathy (principal); T42.8X5A Adverse effect of antiparkinsonism drugs and other central muscle-tone depressants, initial encounter; Y92.009 Unspecified place in unspecified non-institutional (private) residence as the place of occurrence of the external cause; N28.9 Disorder of kidney and ureter, unspecified; W19.XXXD Unspecified fall, subsequent encounter; K70.31 Alcoholic cirrhosis of liver with ascites; G89.29 Other chronic pain; M47.27 Other spondylosis with radiculopathy, lumbosacral region; M16.11 Unilateral primary osteoarthritis, right hip; E87.1 Hypo-osmolality and hyponatremia; R79.89 Other specified abnormal findings of blood chemistry; M06.9 Rheumatoid arthritis, unspecified; G47.33 Obstructive sleep apnea (adult) (pediatric); D53.9 Nutritional anemia, unspecified; R74.0 Nonspecific elevation of levels of transaminase and lactic acid dehydrogenase [LDH]; I13.0 Hypertensive heart and chronic kidney disease with heart failure and stage 1 through stage 4 chronic kidney disease, or unspecified chronic kidney disease; I50.32 Chronic diastolic (congestive) heart failure; E11.22 Type 2 diabetes mellitus with diabetic chronic kidney disease; N18.2 Chronic kidney disease, stage 2 (mild); J45.909 Unspecified asthma, uncomplicated; N40.1 Benign prostatic hyperplasia with lower urinary tract symptoms; N39.498 Other specified urinary incontinence; N13.8 Other obstructive and reflux uropathy; F32.9 Major depressive disorder, single episode, unspecified; F41.9 Anxiety disorder, unspecified; R00.1 Bradycardia, unspecified; T50.905A Adverse effect of unspecified drugs, medicaments and biological substances, initial encounter; Z91.81 History of falling; R41.89 Other symptoms and signs involving cognitive functions and awareness; Z79.84 Long term (current) use of oral hypoglycemic drugs; Z87.11 Personal history of peptic ulcer disease; Z96.642 Presence of left artificial hip joint; Z86.79 Personal history of other diseases of the circulatory system
CPT/HCPCS: 36415; 72192; 80053; 80074; 81003; 82105; 82140; 83036; 83690; 83735; 84443; 85025; 85610; 96361; 96365; 96372; 96375; 97162; 99283; 99284; A9270; G0378; G8978; G8979; J1650; J7120; J8499; 80307; 80320; 81001; 87086